=== PATIENT | male | born 1950 | race Caucasian/White ===

== ENCOUNTER 2020-01-16 11:30 | Observation (INO) | payer OTHER, SELFPAY ==
[2020-01-16] VITALS (8 sets, daily range): BP systolic 116–140; BP diastolic 64–91; PULSE 77–120; RESP 16–25; TEMP 36.6–37.2; O2SAT 95–100; BMI 26.1
--- NOTE | ~2020-01-16 | CT_ITS ---
EXAMINATION: CT chest abdomen w con EXAM DATE: 01/18/2020 10:15 INDICATION: Thrombocytopenia, elevated LFTs. TECHNIQUE: Spiral CT of the chest and abdomen was performed following intravenous injection of 100 mL Omnipaque 350. Axial, coronal and sagittal images were reviewed. Coronal maximum intensity pixel i mages of chest reviewed. The dose-length product (DLP) for this examination was 358.21 mGy-cm. The exposure was tailored according to patient size (auto mA exposure control), and iterative reconstruct ion (ASIR) was used as additional dose reduction technique. There is no prior study for comparison. FINDINGS: CHEST: There is 3 mm right upper lobe nodule on image 72. Mild emphysema. There are no pleural or p ericardial effusions. Tracheobronchial tree is patent. There is no mediastinal, hilar or axillary lymphadenopathy. There are small epicardial lymph nodes. There is no pneumothorax. Heart normal in size. No evidence of coronary arterial calcification. ABDOMEN: Spleen measures 10.9 x 6.7 x 15.6 cm. Liver has a vaguely nodular contour, may indicate cir rhosis. No focal liver lesions. There is cholelithiasis, moderately distended gallbladder, with smal l amount of pericholecystic fluid. Possible cholecystitis, clinical correlation. Portal and splenic veins are patent. Kidneys enhance symmetrically. There is no hydronephrosis. There are bilateral re nal cysts, largest on the left measuring 7 cm, and on the right measuring 5 cm. There are mildly enl arged periportal lymph nodes, with a portacaval lymph node measuring 2.4 x 1.2 cm. Gastrohepatic lymp h node or nodes measuring 2.0 x 2.0 cm. There is mild scattered arteriosclerotic disease. The stom ach and small bowel are unremarkable. There is expected amount of colonic stool. No free intraperi toneal gas. There are no osteoblastic or osteolytic lesions identified. IMPRESSION: 1. Possible cholecystitis. 2. Probable cirrhosis. 3. Mild splenomegaly. 4. Periportal lymphadenopathy, small epicardial lymph nodes. Could be reactive but lymphoma or other malignancy not excludable. Reviewed, dictated and finalized at location B.
--- NOTE | ~2020-01-16 | CT_ITS ---
EXAMINATION: CT brain wo con EXAM DATE: 01/16/2020 12:08 INDICATION: This is an fever. Fatigue. TECHNIQUE: Spiral CT of the head was performed without contrast. Axial, coronal and sagittal images were reviewed. The dose-length product (DLP) for this examination was 605.33 mGy-cm. The exposure w as tailored according to patient size, and iterative reconstruction (ASIR) was used as additional dos e reduction technique. There is no prior study for comparison. FINDINGS: There is no acute intraparenchymal hemorrhage. No evidence of intraparenchymal brain mass lesion. No evidence of acute infarction. Please note that initial head CT has limited sensitivity f or small or acute infarctions. There is mild periventricular and subcortical hypodensity, nonspecific but probably related to small vessel ischemic disease. There is mild prominence of the sulci and v entricles related to cerebral atrophy. There is intracranial carotid arteriosclerosis. There are n o extra-axial collections. There is no mass effect or midline shift. The orbits are unremarkable. Soft tissue is unremarkable. The visualized sinuses and mastoid air cells are well aerated. IMPRESSION: 1. No acute intracranial findings. 2. Chronic age related findings. Reviewed, dictated and finalized at location A.
--- NOTE | ~2020-01-16 | US_ITS ---
EXAMINATION: US right upper quadrant EXAM DATE: 01/16/2020 13:38 INDICATION: Transaminitis. TECHNIQUE: Multiple grayscale and Doppler images of the abdomen right upper quadrant were obtained (mik y a technologist who performed the scan) and subsequently reviewed. There is no prior study for donal [place]. FINDINGS: The pancreatic head and body are normal in appearance. The pancreatic tail is not visualized. The l iver has normal echogenicity and contour. There are no focal liver lesions identified. There is no evidence of intrahepatic biliary duct dilation. Portal venous flow was seen in the hepatopedal, nor mal direction and has normal Doppler waveform. No right-sided hydronephrosis. There is right renal 5 cm cyst. Common bile duct measures 4 mm, which is normal. Portions of the gallbladder wall appear thickened, o ther portions appear normal in thickness. There are multiple gallstones. No pericholecystic fluid. T echnologist does state patient has sonographic Hill's sign. IMPRESSION: Cholelithiasis, regions of mild gallbladder wall, sonographic Hill's sign demonstrated. Possible cholecystitis. Reviewed, dictated and finalized at location A. IMPRESSION: Cholelithiasis, regions of mild gallbladder wall, sonographic Consuelo y's sign demonstrated. Possible cholecystitis.
--- NOTE | ~2020-01-16 | NM_ITS ---
HEPATOBILIARY SCAN Procedure: Hepatobiliary scan performed following IV administration 5.1 mCi Tc 99m Choletec. At 60 m inutes 1.6 mcg CCK administered IV for evaluation of gallbladder ejection fraction. Indication:Elevated liver function tests. Abdomen pain. Comparison: CT dated 01/18/2020 Findings: There is normal radiotracer uptake in the liver parenchyma with prompt excretion into the b iliary tract. Gallbladder visualized at 20 minutes. Small bowel visualized at 30 minutes. Normal g allbladder ejection fraction measures 48% (normal 10-90%, but most patients with gallbladder dysfunct ion have GBEF of less than 35%) Impression: 1: Normal hepatobiliary scan. Reviewed, dictated and finalized at location A. Impression: 1: Normal hepatobiliary scan.
--- NOTE | ~2020-01-16 | XR_ITS ---
EXAMINATION: XR chest 2V EXAM DATE: 01/16/2020 12:10 INDICATION: Dizziness, nausea, sweating. TECHNIQUE: Frontal and lateral projections of the chest obtained and reviewed. Comparison is made to prior examination from 04/07/2017. FINDINGS: The lungs are clear. There are no pleural effusions. The cardiomediastinal silhouette is within normal limits. There is no pneumothorax suspected. There is old right distal clavicular fract ure, associated osteoarthritis. Moderate-sized mid and lower thoracic endplate bridging osteophytes. The bones and soft tissues are unremarkable. IMPRESSION: No acute cardiopulmonary findings. Reviewed, dictated and finalized at location A.
--- NOTE | 2020-01-16 11:32 | ECG_ITS ---
Measurements Intervals [place] Rate: 115 P: 36 DC: 135 QRS: -55 QRSD: 82 T: 23 QT: 311 QTc: 430 Interpretive Statements SINUS TACHYCARDIA POSSIBLE LEFT ATRIAL ENLARGEMENT LEFT AXIS DEVIATION LOW QRS VOLTAGE IN PRECORDIAL LEADS BORDERLINE T WAVE ABNORMALITY- INFERIOR LEADS ABNORMAL ECG Electronically Signed On 01-16-2020 17:05:29 CDT by Alan Avila D.O.
--- NOTE | 2020-01-16 11:37 | ED.DIZZY ---
HPI - Dizziness General Chief Complaint: Dizziness Stated Complaint: nausea, fatigue Time Seen by Provider: 01/16/20 11:37 Source: patient Mode of arrival: ambulatory Limitations: no limitations History of Present Illness HPI Narrative: Patient is a 69-year-old male who presents for evaluation of feeling unwell. Patient states that on Friday night he worked into Friday morning, got off work at 7 AM, went home because he is very fatigued and slept for a period of 24 hours. He states when he awakened he was very sweaty. He denies any recurrent fever or chills. He states he just generally does not feel well. He denies myalgias. He denies headache, chest pain, shortness of breath, cough or abdominal pain. No nausea or vomiting. He does report some decreased oral intake states he does not feel quite as hungry as normal. He denies any dysuria, hematuria or frequency. No rash. He states that on Friday he felt dizzy throughout the day like his equilibrium was off but has no dizziness currently. He denies any palpitations, leg edema. No recent sick contacts. Patient lives home alone, aside from work, he mainly has been isolating at home. Related Data Home Medications Medication Instructions Recorded Confirmed xlztxitr-esp-kaqez-vit K-lycop tablet 01/16/20 [One-A-Day Men's 50 Plus] omega 4-tbk-ghc-fish oil [Fish Oil] 1 cap PO DAILY 01/16/20 Allergies Allergy/AdvReac Type Severity Reaction Status Date / Time No Known Allergies Allergy Verified 01/16/20 11:41 Review of Systems Review of Systems: Narrative: CONSTITUTIONAL: Denies current fever, chills, or sweats. EYES: Reports slightly blurry vision, no eye redness or discharge ENT: Denies rhinorrhea, congestion, sore throat, or otalgia. CARDIOVASCULAR: Denies chest pain, palpitations, or edema. RESPIRATORY: Denies cough or dyspnea. GASTROINTESTINAL: Denies abdominal pain, nausea, vomiting, or diarrhea. GENITOURINARY: Denies dysuria or hematuria. SKIN: Denies rash or itching. MUSCULOSKELETAL: Denies back pain, joint pain, or myalgia. NEUROLOGIC: Denies headache, numbness, or weakness. Reports dizziness that is now resolved. [facility] Past Medical History Medical History (Updated 01/16/20 @ 15:43 by Elena Ramachandran MD) No pertinent past medical history Surgical History Surgical History (Updated 01/16/20 @ 11:56 by Elena Ramachandran MD) H/O left wrist surgery Social History Social History (Updated 01/16/20 @ 11:57 by Elena Ramachandran MD) Smoking status: Former smoker Alcohol intake: never Substance use: never Gender identity (if verbalized by the patient): Male Exam Narrative: Exam Narrative: GENERAL: Awake, alert, conversant HEAD: Normocephalic, atraumatic. EYES: PERRLA and EOMI. no nystagmus. ENT: Nares clear, no rhinorrhea or epistaxis. Mucous membranes moist. NECK: Supple. CHEST: No respiratory distress, breathing even and non labored HEART: Regular rate, sinus rhythm ABDOMEN:Non distended, non tender EXTREMITIES: Normal range of motion. No edema. SKIN: Warm, dry, no rash. NEURO:No focal deficits. Alert and oriented x3. Finger to nose intact bilaterally. EOMs intact without nystagmus. No facial droop/asymmetry noted bilaterally. Grimace intact. Intact sensation in face. Hearing intact bilaterally. Shoulder shrug intact. Strength 5/5 bilateral upper extremities. Strength 5/5 bilateral lower extremities. Reflexes 2+ patellar. Heel to adler intact bilaterally. Ambulatory with a narrow base, steady gait. Course Vital Signs Vital signs: Vital Signs Temperature 36.7 C 01/16/20 11:35 Pulse Rate 120 H 01/16/20 11:35 Respiratory Rate 18 01/16/20 11:35 Blood Pressure 116/76 01/16/20 11:35 Pulse Oximetry 98 01/16/20 11:35 Temperature 36.7 C 01/16/20 13:37 Pulse Rate 87 01/16/20 13:37 Respiratory Rate 25 H 01/16/20 13:37 Blood Pressure 131/88 01/16/20 13:37 Pulse Oximetry 97 01/16/20 13:37 MDM
[2020-01-16 11:59] LABS: Hematocrit 48.5 % (42.0-52.0); Hemoglobin 16.9 g/dL (14.0-18.0); Mean Corpuscular HGB Conc 34.8 g/dl (32-36); Mean Corpuscular Hemoglobin 32.5 pg (26-34); Mean Corpuscular Volume 93.3 fl (80-100); Platelet Count Result 34 k/mm3 (150-375); Red Cell Distribution Width 12.4 % (11.5-14.5); White Blood Count 3.5 K/mm3 (4.5-10.0)
[2020-01-16 12:07] LABS: Atypical Lymphocytes Present; Large Platelets Present; Lymphocytes Absolute Manual 1.15 K/mm3 (1.1-4.5); Monocytes Absolute Manual 0.42 K/mm3 (0.1-0.90); Monocytes Percent Manual 12 % (3-9); Neutrophils Percent Manual 55 % (46-73); Platelet Estimate Decreased (Adequate); Total Cells Counted 100
[2020-01-16 12:15] LABS: Add Urine Microscopic? YES; Appearance Urine Clear (Clear); Bacteria Urine Trace /hpf; Bilirubin Urine Negative (Negative); Blood Urine Negative (Negative); Color Urine Amber (Yellow); Glucose Urine UA Negative (Negative); Ketones Urine Negative (Negative); Leukocyte Esterase Ur Negative LEU/UL (Negative); Mucus Urine Heavy /lpf; Nitrate Urine Negative (Negative); Protein Urine 2+ mg/dL (Negative); Squamous Epithelial Cell Urine Occasional /hpf (Few); WBC Urine 16-20 /hpf
[2020-01-16] MEDS: SODIUM CHLORIDE 0.9% IV 1,000 ML 999 ML IV CONT (12:28)
[2020-01-16] MEDS: MECLIZINE HCL 25 MG TABLET PO (12:28)
--- NOTE | 2020-01-16 12:38 | PC.NURSE ---
Visual acuity test was performed as charted. Patient reports that he does have glasses but does not always wear them and that he does not have them with him at this time. He does state that he has been having some increased blurred vision bilaterally which he reports is also present to a smaller extent when wearing his glasses. He is unable to tell me when he was last seen by optometry and is unsure when his last prescription lenses were updates. Patient was educated on the need to wear his glasses for driving and that he should have them with him.
[2020-01-16 12:39] LABS: CRP 2.1 mg/dL (<1.0)
[2020-01-16 12:41] LABS: Alanine Aminotransferase 135 U/L (4-50); Albumin Level 4.1 g/dL (3.5-5.1); Alkaline Phosphatase 168 U/L (38-126); Aspartate Amino Transferase 227 U/L (17-59); Bilirubin,Total 1.8 mg/dL (0.2-1.3); Blood Urea Nitrogen 26 mg/dL (9-20); Calcium 9.1 mg/dL (8.4-10.2); Carbon Dioxide 28 mmol/L (22-30); Chloride 99 mmol/L (98-107); Estimated CRCL calculation 48 ml/min; Estimated Glomerular Filt Rate 55; Glucose 117 mg/dL (75-110); Sodium 134 mmol/L (137-145)
[2020-01-16 13:33] LABS: Hepatitis B Surface Antigen Negative (Negative)
[2020-01-16 13:39] LABS: HAV RESULT Negative (Negative); Hepatitis B Core IgM Result Negative (Negative)
[2020-01-16 13:51] LABS: Hepatitis C Virus Antibody Reactive (Negative)
--- NOTE | 2020-01-16 16:48 | ADMGEN ---
This patient, Job Das, was admitted to Medical Room 256-. Patient/family oriented to hospital policies and general routines including ID bracelet, bed and alarms, visiting hours, pain management, procedures, bathroom and other care routines, personal items, smoking policy, room service/diet, and visiting hours. Valuables list has been completed. Information on how to activate the Rapid Response Team has been discussed. Patient/Family are encouraged to report perceived risks to care and to ask questions if they do not understand what they are told or what they should do.
--- NOTE | 2020-01-16 17:00 | PM.IMHP ---
H&P: HPI History of Present Illness Chief complaint: Multiple complaints. Narrative: Job Das is a relatively healthy 69-year-old male, former smoker, who presented to the emergency department earlier this morning with multiple complaints. 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 Initially he had severe nausea, and he thought perhaps he got food poisoning from a sandwich that he had made with mayonaisse which he then noted to be . He went to bed and reports sleeping upwards of 15 hours before he was wakened from sleep in a drenching sweat and since that time, he has pretty much been sleeping most of the day. Despite continued sweats, he has not been running a fever although he does admit that the temperature strips he has been using are old. His oral intake has been poor, as food just does not smell good or sound good. He continues to have mild nausea but he was able to eat some chicken soup earlier today. He has not had abdominal pain or epigastric pain. Additionally, he reports a decrease in urine, dark colored urine, feelings of being off balance with blurry vision, and epistaxis over the past several days. Pertinent labs done on arrival to the emergency department include a platelet count of 34,000, evidence of dehydration, and elevated LFTs. He was also reactive on the hepatitis-C antibody screen. With further questioning, he has no known history of hepatitis or exposure to such. He did have a blood transfusion in 2004 after losing a significant amount of blood due to epistaxis. He has tattoos that he got years ago at a reputable shop. He has not had any new sexual partners for many years. No history of IV drug use. He denies recent travel and sick contact. No exposure to body fluids. He drank heavily in his 20s but now drinks maybe 1 or 2 times a month, and in moderation, although he mentions sometimes ?I might overdo it.? Review of Systems Review of Systems: Narrative: Twelve systems were reviewed with pertinent positives and negatives as per HPI. He has a slight headache and sinus congestion but moved that may be due to seasonal allergies. He denies sore throat. No cough or shortness of breath. He denies melena and hematochezia. He will frequently get nose bleeds, and has had them many times over the years, and fact he required surgery for that. He previously to the bare aspirin daily but was told not to do that any longer. He denies significant bruising. [facility] Past Medical History Medical History Former smoker Surgical History Surgical History (Updated 01/16/20 @ 22:32 by Heather Marie PA-C) History of nasal surgery Patient reports surgical intervention due to sustained epistaxis, performed at [place]. History of surgery on left wrist With hardware. Family History Family History Father Cancer Patient's father is Sibling Patient's brother is Lung cancer Social History Social History (Updated 01/16/20 @ 22:17 by Heather Marie PA-C) Social History: Surrogate decision maker: Theresa Rodríguez, daughter. Code status: Full code. Smoking packs per day: 1 Smoking cigarettes per day: 20.0 Years smoked: 30 Smoking pack-years: 30.00 Smoking status: Former smoker Tobacco type: cigarettes Alcohol intake: current Alcohol use details: He drinks maybe once every month or 2. Typically in moderation but ?sometimes I over do it.? Substance use: never Additional living arrangements comments: The patient lives in his own home in [place] with his CT. 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 Gender identity (if verbalized by the patient): Male Spiritual care concerns: No Meds Home Medications and Allergies Home Medications Medication Instructions Record
[2020-01-16] MEDS: SODIUM CHLORIDE 0.9% IV 1,000 ML 100 ML IV CONT (22:50)
[2020-01-17 05:25] LABS: Basophils Absolute Auto 0.1 K/mm3 (0.0-0.1); Eosinophils Percent Auto 0.2 % (0-4.4); Hematocrit 39.7 % (42.0-52.0); Hemoglobin 13.9 g/dL (14.0-18.0); Immature Granulocyte Absolute 0.01 K/mm3 (0.00-0.031); Immature Granulocyte Percent A 0.2 % (0-0.5); Immature Platelet Fraction Pct 12.4 % (0.9-11.2); Lymphocytes Absolute Auto 2.74 K/mm3 (0.9-3.2); Lymphocytes Percent Auto 55.7 % (18.3-44.2); Mean Corpuscular Hemoglobin 33.1 pg (26-34); Mean Corpuscular Volume 94.5 fl (80-100); Mean Platelet Volume 13.2 fl (7.4-10.4); Monocytes Absolute Auto 0.4 K/mm3 (0.1-0.6); Monocytes Percent Auto 8.3 % (2.6-8.5); Neutrophils Absolute Auto 1.7 K/mm3 (1.3-6.7); Neutrophils Percent Auto 34.6 % (45.5-73.1); Platelet Count Result 36 k/mm3 (150-375); Red Cell Distribution Width 12.6 % (11.5-14.5); White Blood Count 4.9 K/mm3 (4.5-10.0)
[2020-01-17 05:31] LABS: INR 1.1; Prothrombin Time 13.4 Seconds (11.1-14.7)
[2020-01-17 06:00] VITALS: BP 100/56; PULSE 85; RESP 18; TEMP 37.3; O2SAT 97
[2020-01-17 06:03] LABS: Alanine Aminotransferase 96 U/L (4-50); Albumin Level 3.2 g/dL (3.5-5.1); Alkaline Phosphatase 154 U/L (38-126); Aspartate Amino Transferase 163 U/L (17-59); Bilirubin,Total 1.4 mg/dL (0.2-1.3); Blood Urea Nitrogen 22 mg/dL (9-20); Calcium 8.1 mg/dL (8.4-10.2); Carbon Dioxide 27 mmol/L (22-30); Chloride 101 mmol/L (98-107); Estimated CRCL calculation 68 ml/min; Estimated Glomerular Filt Rate > 60; Glucose 100 mg/dL (75-110); Magnesium 1.8 mg/dL (1.6-2.3); Potassium 4.6 mmol/L (3.4-5.0); Sodium 132 mmol/L (137-145)
[2020-01-17] MEDS: SODIUM CHLORIDE 0.9% IV 1,000 ML 100 ML IV CONT ×2 (07:43→16:51)
[2020-01-17] MEDS: MAGNESIUM OXIDE 200 MG TABLET PO (07:44)
[2020-01-17 07:47] VITALS: PULSE 85; RESP 18; O2SAT 97
--- NOTE | 2020-01-17 10:07 | WPDGICN ---
Assessment and Plan Assessment and plan (1) Elevated LFTs: Code(s): R79.89 - Other specified abnormal findings of blood chemistry Status: Acute Assessment and Plan: Elevated LFTs felt to be secondary to hepatitis C. However other etiology cannot be excluded given the concomitant low platelet count concern for possible underlying portal hypertension a CT scan of the abdomen is advised. We will continue monitor liver function test additional testing for other etiology of hepatitis also will be performed. (2) Hepatitis C: Qualifiers: Hepatic coma status: without hepatic coma Viral hepatitis chronicity: unspecified Qualified Code(s): B19.20 - Unspecified viral hepatitis C without hepatic coma Code(s): B19.20 - Unspecified viral hepatitis C without hepatic coma Status: Acute Assessment and Plan: Hepatitis C antibody positive on screening test usually this is a chronic infection. And therefore uncertain whether this accounts for his acute symptoms of nausea has been persistent for 5 days. Agree with viral load evaluation. Ultimately patient should have treatment. I would encourage outpatient referral to hepatology Service of [facility] for ultimate and definitive treatment. (3) Thrombocytopenia: Code(s): D69.6 - Thrombocytopenia, unspecified Status: Acute Assessment and Plan: low platelet count of uncertain etiology. May be related to occult liver disease. But ultrasound reveals no specific evidence for cirrhosis. I would recommend a CT scan to evaluate the spleen. Also to evaluate elevated LFTs. If this is not fruitful than hematology evaluation should be obtained. (4) Cholelithiasis: Code(s): K80.20 - Calculus of gallbladder without cholecystitis without obstruction Status: Acute Assessment and Plan: Gallstones identified by a ultrasound appear to be asymptomatic. Unlikely to contribute to elevated transaminases. Consider HIDA scan if patient's nausea and abdominal pain persists. GI Consult Note Consult date/time: 01/17/20 10:07 HPI: Job Das is a 69 year old male Seen in evaluation at the request of the hospitalist service. Patient reports multiple vague abdominal complaints that began on Friday. For the last 5 days he has had nausea in general felt poorly. He reports having night sweats. Although he never took his temperature E is concerned about having a fever. Patient presented to the emergency room yesterday was found to have low platelet count elevated LFTs. His hepatitis C antibody screen was elevated. Patient denies any known exposure to hepatitis. He has no contacts that he is aware of that has hepatitis. He denies IV drug abuse. He does report having a blood transfusion after nose bleed several years ago. I think 2004. He also has a history of tattoos many years ago denies any recent travel. Currently drinks only 1 to 2 times a month. He did drink heavily when he was younger. Family history is noncontributory. There is no family history of liver disease. Review of Systems Review of Systems: All systems reviewed & are unremarkable except as noted in HPI and below PMFSH Past Medical History Medical History Former smoker Surgical History Surgical History History of nasal surgery Patient reports surgical intervention due to sustained epistaxis, performed at [place]. History of surgery on left wrist With hardware. Family History Family History Father Cancer Patient's father is Sibling Patient's brother is Lung cancer Social History Social History Social History: Surrogate decision maker: Theresa Rodríguez, daughter. Code status: Full code. Smoking packs per day: 1 Smoking cigarettes per day: 20.0 Years smo
--- NOTE | 2020-01-17 13:00 | PM.IMPN ---
Progress Note: A&P Assessment and Plan (1) Elevated LFTs: Code(s): R79.89 - Other specified abnormal findings of blood chemistry Status: Acute Assessment and Plan: Trended down in comparison to yesterday, however still elevated. It is possible that this may be due to hepatitis-C infection given reactive hepatitis-C screening Hepatitis C viral load is pending Dr. Mishra has been consulted and his recommendations are appreciated. There is no evidence of cirrhosis on imaging, however he does have thrombocytopenia and this could explain his elevated LFTs. CT abdomen/pelvis has been ordered to evaluate for underlying liver disease or portal hypertension. Await results. Continue to monitor LFTs (2) Thrombocytopenia: Code(s): D69.6 - Thrombocytopenia, unspecified Status: Acute Assessment and Plan: Platelet count is 36,000 today. This could be explained by an underlying hepatitis-C infection or liver disease. ITP is less likely in light of elevated LFTs. CT abdomen/pelvis is ordered to evaluate liver and spleen. He may benefit from Hematology consultation dependent on results Dr. Mishra is following his recommendations are appreciated (3) Hepatitis C antibody test positive: Code(s): R76.8 - Other specified abnormal immunological findings in serum Status: Acute Assessment and Plan: He had a reactive hepatitis C screening. He denies IV drug use. He does admit to a blood transfusion many years ago. HCV RNA is pending Dr. Mishra's recommendations are appreciated. (4) Dehydration: Code(s): E86.0 - Dehydration Status: Acute Assessment and Plan: He has had poor oral intake recently and has been outdoors in the heat. He reports his urine is becoming less dark. Has been good today. Continue IV fluid rehydration Continue to monitor I&O (5) Cholelithiasis: Code(s): K80.20 - Calculus of gallbladder without cholecystitis without obstruction Status: Acute Assessment and Plan: Evident on RUQ ultrasound with a positive sonographic Hill's sign, however he has not had abdominal pain and his abdominal exam is benign. May consider HIDA scan, however will not pursue this at this time as the patient is asymptomatic Subjective Date/time seen: 01/17/20 13:00 Interval history: Date of service: 01/17/2020 Mr. Das reports he is doing okay today. He complains of fatigue and still complains of occasional sweats. He denies abdominal pain, bloating, cramping or additional discomfort. He denies nausea, vomiting, fever, chills, dizziness, lightheadedness, or weakness. He has been eating well. He states he is urinating regularly and his urine is becoming less dark. He denies diarrhea or constipation. He didn't get much sleep last night. He also said he had a bit of a sore throat last night that is resolved. Review of Systems Review of Systems: Narrative: A 12 point review of systems was reviewed with pertinent positives and negatives as per HPI. Exam Narrative: Exam Narrative: Mr. Das is examined alone today. He is a well-nourished 69-year-old male who is lying comfortably in bed and is in no acute respiratory distress. HR 85, BP 100/56, R 18 him a T 99.2?, 97% on room Neuro: awake, alert and oriented x4, speech clear, no focal neuro deficits noted HEENMT: normocephalic, atraumatic, EOMI, sclerae anicteric, moist oral mucosa, normal oropharynx Neck: supple, no lymphadenopathy Respiratory: clear to auscultation bilaterally, normal respiratory effort without accessory muscle use Cardio: regular rate, regular rhythm, normal S1 and S2 Abdomen: normal to inspection, nondistended, normoactive bowel sounds, soft, nontender to palpation Extremities: BLE without edema, erythema, or pain to palpation, dorsal pedis pulses palpable bilaterally Skin: no rashes or lesions, warm and dry Psych: Pleasant and cooperative, normal
[2020-01-17 13:54] VITALS: BP 126/61; PULSE 80; RESP 20; TEMP 37.1; O2SAT 98
[2020-01-17 15:40] LABS: Ferritin > 2000.00 ng/mL (11.1-264)
[2020-01-17 21:54] VITALS: BP 130/63; PULSE 80; RESP 16; TEMP 37.2; O2SAT 97
[2020-01-18] MEDS: SODIUM CHLORIDE 0.9% IV 1,000 ML 100 ML IV CONT ×2 (02:58→13:04)
[2020-01-18 05:44] LABS: Hematocrit 38.7 % (42.0-52.0); Hemoglobin 13.3 g/dL (14.0-18.0); Immature Platelet Fraction Pct 11.1 % (0.9-11.2); Mean Corpuscular HGB Conc 34.4 g/dl (32-36); Mean Corpuscular Hemoglobin 32.4 pg (26-34); Mean Corpuscular Volume 94.4 fl (80-100); Mean Platelet Volume 12.8 fl (7.4-10.4); Platelet Count Result 49 k/mm3 (150-375); Red Cell Distribution Width 12.5 % (11.5-14.5)
[2020-01-18 06:00] VITALS: BP 126/66; PULSE 81; RESP 18; TEMP 36.9; O2SAT 96
[2020-01-18 06:17] LABS: Alanine Aminotransferase 86 U/L (4-50); Albumin Level 2.9 g/dL (3.5-5.1); Alkaline Phosphatase 140 U/L (38-126); Aspartate Amino Transferase 120 U/L (17-59); Bilirubin,Total 1.1 mg/dL (0.2-1.3); Blood Urea Nitrogen 13 mg/dL (9-20); Carbon Dioxide 26 mmol/L (22-30); Chloride 106 mmol/L (98-107); Estimated CRCL calculation 75 ml/min; Estimated Glomerular Filt Rate > 60; Glucose 102 mg/dL (75-110); Potassium 4.1 mmol/L (3.4-5.0); Sodium 133 mmol/L (137-145)
[2020-01-18 08:00] VITALS: PULSE 81; RESP 18; O2SAT 96
[2020-01-18] MEDS: SIMETHICONE 125 MG CHEW TAB PO (08:09)
[2020-01-18] MEDS: MAGNESIUM OXIDE 200 MG TABLET PO (08:09)
--- NOTE | 2020-01-18 08:19 | WPDGIPROGNO ---
Progress Note: A&P Additional Plan Patient feels much improved today. No longer has is vague abdominal discomfort. Physical exam reveals patient to be alert. Afebrile he is anicteric. Lungs are clear to auscultation and percussion. Heart is without murmur. Abdomen bowel sounds are present soft nontender with no organomegaly. Labs reveal platelets 49 K. hemoglobin 13, hematocrit 38. LFTs with AST 120, ALT 86, alk-phos 140. Total bilirubin 1.1. Impression 1. Elevated LFTs. In the setting of positive hepatitis C antibody. This suggests that hepatitis C is etiology for his hepatitis. This is usually chronic. I am somewhat concerned about underlying cirrhosis given the low platelet count. Plan is for a CT scan of the abdomen to assess the liver and spleen further. 2. Hepatitis-C. 3. Thrombocytopenia. Likely related to portal hypertension. Await findings of CT scan. If this is not fruitful than hematology evaluation. 4. General malaise has resolved. Uncertain how this relates to his hepatitis C at this point. 5. Gallstones. Identified on ultrasound. Appear to be asymptomatic. Subjective Date/time seen: 01/18/20 08:19 Objective Data Vital Signs Vital Signs: Vital Signs - 24 hr 01/17/20 13:54 01/17/20 21:54 01/18/20 06:00 Temperature 37.1 C 37.2 C 36.9 C Pulse Rate 80 80 81 Respiratory Rate 20 16 18 Blood Pressure 126/61 130/63 126/66 Pulse Oximetry 98 97 96 01/18/20 08:00 Temperature Pulse Rate 81 Respiratory Rate 18 Blood Pressure Pulse Oximetry 96 Intake/Output Intake/Output: Intake & Output 01/15/20 01/16/20 01/17/20 01/18/20 23:59 23:59 23:59 23:59 Intake Total 1240 3220 1300 Output Total 0 1400 1600 Balance 1240 1820 -300 Meds/Results Medications: Active Medications Generic Name Dose Route Start Last Admin Trade Name Freq PRN Reason Stop Dose Admin Sodium Chloride 1,000 mls @ 100 mls/hr 01/16/20 22:35 01/18/20 02:58 Normal Saline Iv IV CONT 100 mls/hr .Q10H SCOTT Administration Magnesium Oxide 200 mg 01/17/20 09:00 01/18/20 08:09 Mag-Ox PO 200 mg DAILY SCOTT Administration Simethicone 125 mg 01/17/20 18:19 01/18/20 08:09 Phazyme PO 125 mg QID PRN Administration gas Radiology Results: ITS Impressions Head CT 01/16/20 12:16 IMPRESSION: 1. No acute intracranial findings. 2. Chronic age related findings. Chest X-Ray 01/16/20 12:18 IMPRESSION: No acute cardiopulmonary findings. Upper Quadrant Ultrasound 01/16/20 13:38 IMPRESSION: Cholelithiasis, regions of mild gallbladder wall, sonographic Hill's sign demonstrated. Possible cholecystitis. Labs Labs: Laboratory Results - last 24 hr 01/17/20 01/18/20 01/18/20 12:59 05:10 05:10 WBC 7.0 RBC 4.10 L Hgb 13.3 L Hct 38.7 L MCV 94.4 MCH 32.4 MCHC 34.4 RDW 12.5 Plt Count 49 L MPV 12.8 H % Immature Plt Fraction 11.1 Sodium 133 L Potassium 4.1 Chloride 106 Carbon Dioxide 26 BUN 13 D Creatinine 0.80 Estim Creat Clear Calc 75 Estimated GFR > 60 Glucose 102 Calcium 8.0 L Ferritin > 2000.00 H Total Bilirubin 1.1 AST 120 H ALT 86 H Alkaline Phosphatase 140 H Total Protein 6.0 L Albumin 2.9 L
--- NOTE | 2020-01-18 13:29 | PM.IMPN ---
Progress Note: A&P Assessment and Plan (1) Elevated LFTs: Code(s): R79.89 - Other specified abnormal findings of blood chemistry Status: Acute Assessment and Plan: Trended down in comparison to yesterday, however still elevated. It is possible that this may be due to hepatitis-C infection given reactive hepatitis-C screening. CT a/p shows findings suggestive of cirrhosis, possible cholecystitis and mild splenomegaly with periportal lymphadenopathy Hepatitis C viral load is pending Dr. Mishra has been consulted and his recommendations are appreciated. Possible cirrhosis on CT imaging, as well as, mild splenomegaly; likely related to thrombocytopenia as well HIDA scan to be performed tomorrow per Dr. Mishra rec Continue to monitor LFTs Await further rec from Dr. Mishra (2) Thrombocytopenia: Code(s): D69.6 - Thrombocytopenia, unspecified Status: Acute Assessment and Plan: Platelet count is 49,000 today. This could be explained by an underlying hepatitis-C infection or liver disease. ITP is less likely in light of elevated LFTs. CT a/p shows findings suggestive of cirrhosis, possible cholecystitis and mild splenomegaly with periportal lymphadenopathy Dr. Mishra is following his recommendations are appreciated Patient to have HIDA scan tomorrow Monitor Await further rec from Dr. Mishra (3) Hepatitis C antibody test positive: Code(s): R76.8 - Other specified abnormal immunological findings in serum Status: Acute Assessment and Plan: He had a reactive hepatitis C screening. He denies IV drug use. He does admit to a blood transfusion many years ago. CT results are as stated above HCV RNA is pending Dr. Mishra's recommendations are appreciated. (4) Dehydration: Code(s): E86.0 - Dehydration Status: Acute Assessment and Plan: He has had poor oral intake recently and has been outdoors in the heat. He notes improved urine output and tolerating PO. Will d/c IV fluid rehydration today Continue to monitor I&O (5) Cholelithiasis: Code(s): K80.20 - Calculus of gallbladder without cholecystitis without obstruction Status: Acute Assessment and Plan: Evident on RUQ ultrasound with a positive sonographic Hill's sign, however he has not had abdominal pain and his abdominal exam is benign. CT shows possible cholecycstitis HIDA scan to be performed tomorrow per Dr. Danica cuadra Await resutls Monitor Subjective Date/time seen: 01/18/20 13:29 Interval history: Patient is a 69 yo M, former smoker, who is here for thrombocytopenia and suspected hepatitis C infection with positive hepatitis C antibody and evaluation of elevated LFTs. Patient has no complaints for me this afternoon. He states he is eating and drinking okay. Denies f/c/s, headaches, dizziness, lightheadedness, cp/palpitations, sob/cough, n/v/d/c, abd pain, changes in BMs, dysuria, hematuria, cloudy urine, calf pain/swelling. Review of Systems Review of Systems: All systems reviewed & are unremarkable except as noted in HPI and below Exam Narrative: Exam Narrative: Patient lying supine in bed at time of visit; head slightly elevated Const: General: cooperative, healthy appearing, comfortable, no acute distress, well developed and alert Nutritional Appearance: well nourished Orientation/consciousness: patient oriented x3 HENMT: Head: normocephalic and atraumatic General nose exam: Normal nares present Face and sinus: face symmetric Mouth: Yes moist mucous membranes Throat: uvula midline Eyes: General: appearance normal, both eyes and all related structures EOM: EOMs intact bilaterally Neck: Neck: trachea midline and supple Resp: Effort & Inspection: normal respiratory ef
[2020-01-18 14:00] VITALS: BP 129/60; PULSE 74; RESP 18; TEMP 37.2; O2SAT 98
--- NOTE | 2020-01-18 14:53 | PCCCNOTE ---
On 01/18/20, the student, Pam Calixto, provided care and completed [facility] documentation on this patient. I have reviewed the student's documentation and agree with the findings.
[2020-01-18 22:00] VITALS: BP 155/68; PULSE 78; RESP 18; TEMP 37; O2SAT 99
[2020-01-19 05:35] LABS: Hematocrit 40.2 % (42.0-52.0); Hemoglobin 13.9 g/dL (14.0-18.0); Immature Platelet Fraction Pct 8.8 % (0.9-11.2); Mean Corpuscular HGB Conc 34.6 g/dl (32-36); Mean Corpuscular Hemoglobin 32.7 pg (26-34); Mean Corpuscular Volume 94.6 fl (80-100); Mean Platelet Volume 11.5 fl (7.4-10.4); Platelet Count Result 77 k/mm3 (150-375); Red Blood Count 4.25 M/mm3 (4.6-6.20); Red Cell Distribution Width 12.6 % (11.5-14.5)
[2020-01-19 05:48] LABS: Alanine Aminotransferase 82 U/L (4-50); Albumin Level 3.2 g/dL (3.5-5.1); Alkaline Phosphatase 144 U/L (38-126); Aspartate Amino Transferase 105 U/L (17-59); Bilirubin,Total 1.1 mg/dL (0.2-1.3); Blood Urea Nitrogen 13 mg/dL (9-20); Calcium 8.3 mg/dL (8.4-10.2); Carbon Dioxide 26 mmol/L (22-30); Chloride 103 mmol/L (98-107); Estimated CRCL calculation 75 ml/min; Estimated Glomerular Filt Rate > 60; Glucose 98 mg/dL (75-110); Magnesium 1.8 mg/dL (1.6-2.3); Potassium 4.3 mmol/L (3.4-5.0); Sodium 136 mmol/L (137-145)
[2020-01-19 06:00] VITALS: BP 123/63; PULSE 76; RESP 20; TEMP 36.8; O2SAT 97
--- NOTE | 2020-01-19 07:50 | PC.NURSE ---
To Nuc Med per wheelchair, IV intact
--- NOTE | 2020-01-19 09:02 | WPDGIPROGNO ---
Progress Note: A&P Additional Plan Patient alert and comfortable this morning. He denies any ongoing abdominal pain states his appetite bowel movements are normal. Physical exam reveals him to be alert, afebrile, vital signs stable. HEENT exam unremarkable. Lungs are clear to auscultation and percussion. Heart is without murmur or extra sounds. Abdominal exam bowel sounds are present soft nontender with no organomegaly. Labs reveal hemoglobin 13.9, hematocrit 40.2, MCV 94. Platelets 77 K. protime 13.4, INR 1.1. Total bilirubin 1.1, AST 105, ALT 82, alk-phos 144. CT scan of the abdomen suggest cirrhosis of liver. Splenomegaly evident. Possible cholecystitis with gallstones. 1. Abdominal pain. This is now resolved. May be related to gallstones. HIDA scan pending to exclude cholecystitis. Patient currently asymptomatic. Surgery consult pending results of HIDA scan. 2. Cirrhosis of liver evident by CT scan. This likely accounts for thrombocytopenia. Hepatitis C appears to be etiology. Plan is for elective outpatient referral to [facility] for treatment of hepatitis-C. This is unlikely to account for his pain at the time admission. Subjective Date/time seen: 01/19/20 09:02 Objective Data Vital Signs Vital Signs: Vital Signs - 24 hr 01/18/20 14:00 01/18/20 22:00 01/19/20 06:00 Temperature 37.2 C 37.0 C 36.8 C Pulse Rate 74 78 76 Respiratory Rate 18 18 20 Blood Pressure 129/60 155/68 H 123/63 Pulse Oximetry 98 99 97 Intake/Output Intake/Output: Intake & Output 01/16/20 01/17/20 01/18/20 01/19/20 23:59 23:59 23:59 23:59 Intake Total 1240 3220 3780 100 Output Total 0 1400 2200 1250 Balance 1240 1820 1580 -1150 Meds/Results Medications: Active Medications Generic Name Dose Route Start Last Admin Trade Name Freq PRN Reason Stop Dose Admin Magnesium Oxide 200 mg 01/17/20 09:00 01/18/20 08:09 Mag-Ox PO 200 mg DAILY SCOTT Administration Simethicone 125 mg 01/17/20 18:19 01/18/20 08:09 Phazyme PO 125 mg QID PRN Administration gas Radiology Results: ITS Impressions Head CT 01/16/20 12:16 IMPRESSION: 1. No acute intracranial findings. 2. Chronic age related findings. Chest X-Ray 01/16/20 12:18 IMPRESSION: No acute cardiopulmonary findings. Upper Quadrant Ultrasound 01/16/20 13:38 IMPRESSION: Cholelithiasis, regions of mild gallbladder wall, sonographic Hill's sign demonstrated. Possible cholecystitis. Chest/Abdomen CT 01/18/20 10:25 IMPRESSION: 1. Possible cholecystitis. 2. Probable cirrhosis. 3. Mild splenomegaly. 4. Periportal lymphadenopathy, small epicardial lymph nodes. Could be reactive but lymphoma or other malignancy not excludable. Labs Labs: Laboratory Results - last 24 hr 01/19/20 01/19/20 05:19 05:19 WBC 7.0 RBC 4.25 L Hgb 13.9 L Hct 40.2 L MCV 94.6 MCH 32.7 MCHC 34.6 RDW 12.6 Plt Count 77 L D MPV 11.5 H % Immature Plt Fraction 8.8 Sodium 136 L Potassium 4.3 Chloride 103 Carbon Dioxide 26 BUN 13 Creatinine 0.80 Estim Creat Clear Calc 75 Estimated GFR > 60 Glucose 98 Calcium 8.3 L Magnesium 1.8 Total Bilirubin 1.1 AST 105 H ALT 82 H Alkaline Phosphatase 144 H Total Protein 6.0 L Albumin 3.2 L
--- NOTE | 2020-01-19 09:35 | PC.NURSE ---
Returned to room. IV intact
[2020-01-19] MEDS: MAGNESIUM OXIDE 200 MG TABLET PO (09:42)
[2020-01-19 11:58] LABS: Ceruloplasmin 32 mg/dL (18-36)
--- NOTE | 2020-01-19 13:23 | PM.DS ---
DS: Admitting Diagnosis Admitting Diagnosis Admitting Diagnosis: Other specified abnormal findings of blood chemistry DS: Discharge Diagnosis Discharge Diagnosis (1) Elevated LFTs: Code(s): R79.89 - Other specified abnormal findings of blood chemistry Status: Acute Assessment and Plan: Trended down in comparison to yesterday, however still elevated. It is possible that this may be due to hepatitis-C infection given reactive hepatitis-C screening. CT a/p shows findings suggestive of cirrhosis, possible cholecystitis and mild splenomegaly with periportal lymphadenopathy. HIDA scan today showed normal HIDA scan Hepatitis C viral load is pending Dr. Mishra has been consulted and his recommendations are appreciated. Possible cirrhosis on CT imaging, as well as, mild splenomegaly; likely related to thrombocytopenia as well Hepatic panel in 2 weeks Follow up with Dr. Mishra in 1 month (2) Thrombocytopenia: Code(s): D69.6 - Thrombocytopenia, unspecified Status: Acute Assessment and Plan: Platelet count is 77,000 today. This could be explained by an underlying hepatitis-C infection or liver disease. ITP is less likely in light of elevated LFTs. CT a/p shows findings suggestive of cirrhosis, possible cholecystitis and mild splenomegaly with periportal lymphadenopathy. Normal HIDA scan today. Dr. Mishra is following his recommendations are appreciated (3) Hepatitis C antibody test positive: Code(s): R76.8 - Other specified abnormal immunological findings in serum Status: Acute Assessment and Plan: He had a reactive hepatitis C screening. He denies IV drug use. He does admit to a blood transfusion many years ago. CT results are as stated above HCV RNA is pending Will likely need referral to secondary set up man Dr. Mishra's recommendations are appreciated. (4) Dehydration: Code(s): E86.0 - Dehydration Status: Acute Assessment and Plan: He has had poor oral intake recently and has been outdoors in the heat. He notes improved urine output and tolerating PO. Continue to monitor I&O (5) Cholelithiasis: Code(s): K80.20 - Calculus of gallbladder without cholecystitis without obstruction Status: Acute Assessment and Plan: Evident on RUQ ultrasound with a positive sonographic Hill's sign, however he has not had abdominal pain and his abdominal exam is benign. CT shows possible cholecycstitis. Normal HIDA scan today Monitor DS: Summary Hospital Course Reason for hospitalization: Nausea, Hepatitis C antibody test positive, elevated LFTs, thrombocytopenia Hospital Course: Patient is a 70 yo M with history of former tobacco use who presented to the emergency department on 01/15 with complaints of feeling poorly and nausea. While in the ED, he was found to be thrombocytopenis, evidence of dehydration, and elevated LFTs, as well as, reactive hepatitis C antibody screen. Patient admitted under this setting. Please see H&P for further details. Presenting VS: Temp Pulse Resp BP Pulse Ox 98.1 F 120 H 18 116/76 98 01/16/20 11:35 01/16/20 11:35 01/16/20 11:35 01/16/20 11:35 01/16/20 11:35 Presenting Pertinent labs: WBC 3.5k, Plt 34k, Na 134, BUN 26, Cr 1.30, tot bili 1.8, AST 227, ALT 135, alk phos 168, CRP 2.1. Hepatitis C ab reactive, HCV RNA PCR 1620. CBC, coag, chemistry, UA, immunology, serology otherwise grossly unremarkable Micro: UCx negative Imaging: Head CT 01/16/20 12:16 IMPRESSION: 1. No acute intracranial findings. 2. Chronic age related findings. Chest X-Ray 01/16/20 12:18 IMPRESSION: No acute cardiopulmonary findings. Upper Quadrant Ultrasound 01/16/20 13:38 IMPRESSION: Cholelithiasis, regions of mild gallbladder wall, sonographic
[2020-01-19 13:39] VITALS: BP 125/79; PULSE 92; RESP 18; TEMP 36.7; O2SAT 100
[2020-01-19 21:49] LABS: Mitochondrial (M2) Ab (IgG) <=20.0 U (<=20.0)
[2020-01-21 20:36] LABS: Hepatitis C RNA, Quant PCR 1620 IU/mL
== END 2020-01-19 14:51 | disposition home or self-care (01) ==
LOC: ANHED 15:49 → ANH2MED 16:08
PROVIDERS: Internal Medicine Gastroenterology; Physician Assistant; Admitting Provider Internal Medicine; Emergency Provider Emergency Medicine; Visit Provider Physician Assistant
DX: R79.89 Other specified abnormal findings of blood chemistry (principal); B19.20 Unspecified viral hepatitis C without hepatic coma; K74.69 Other cirrhosis of liver; D69.6 Thrombocytopenia, unspecified; K80.20 Calculus of gallbladder without cholecystitis without obstruction; E80.6 Other disorders of bilirubin metabolism; E86.0 Dehydration; Z87.891 Personal history of nicotine dependence; Z79.899 Other long term (current) drug therapy
CPT/HCPCS: 36415; 70450; 71046; 71260; 74160; 76705; 78227; 80053; 80074; 81001; 82104; 82390; 82728; 83520; 83735; 85025; 85027; 85055; 85610; 85730; 86038; 86140; 87086; 87522; 93005; 96360; 96361; 99285; A9270; A9537; G0378; J2805; J7030; Q9967

== ENCOUNTER 2020-02-02 07:52 | Outpatient (CLI) | payer OTHER, SELFPAY ==
[2020-02-02 08:29] LABS: Alanine Aminotransferase 89 U/L (4-50); Albumin Level 3.2 g/dL (3.5-5.1); Alkaline Phosphatase 206 U/L (38-126); Aspartate Amino Transferase 128 U/L (17-59); Bilirubin,Total 0.7 mg/dL (0.2-1.3)
== END 2020-02-02 07:53 | disposition home or self-care (01) ==
LOC: ANHLAB 07:54
PROVIDERS: Visit Provider Physician Assistant
DX: R79.89 Other specified abnormal findings of blood chemistry (principal); R76.8 Other specified abnormal immunological findings in serum
CPT/HCPCS: 36415; 80076

== ENCOUNTER 2020-02-29 10:26 | Emergency (ER) | payer OTHER, SELFPAY ==
[2020-02-29] VITALS (7 sets, daily range): BP systolic 137–168; BP diastolic 70–83; PULSE 56–83; RESP 18–21; TEMP 37.1; O2SAT 98–100
--- NOTE | ~2020-02-29 | US_ITS ---
EXAMINATION: US carotid duplex BI DATE: 02/29/2020 14:56 INDICATION: Subjective visual disturbance. Dizziness. TECHNIQUE: Grayscale, color Doppler, and pulsed Doppler images of the cervical carotid arteries were obtained. The degree of vessel stenosis is placed in one of the following categories: normal, <50%, 5 0-69%, >=70% but less than near-occlusion, near-occlusion, or total occlusion. Note that percent sten osis relative to normal distal artery lumen diameter is indirectly measured from velocity measurement s as described by Christian, et al. Radiology 2003; 229:[id number]. COMPARISON: None. FINDINGS: RIGHT: The right common carotid artery (CCA) peak systolic velocity (PSV) is 59 cm/s. The right internal car otid artery (ICA) PSV is 47 cm/s. The right ICA end-diastolic velocity (EDV) is 10 cm/s. The right IC A/CCA PSV ratio is 0.8. Grayscale and color Doppler images yield an estimate of <50% diameter reducti on from intimal thickening and negligible plaque in the ICA. The external carotid artery (ECA) PSV is 79 cm/s. There is antegrade flow in the right vertebral artery. LEFT: The left CCA PSV is 59 cm/s. The left ICA PSV is 53 cm/s. The left ICA EDV is 15 cm/s. The left ICA/C CA PSV ratio is 0.9. Grayscale and color Doppler images yield an estimate of <50% diameter reduction from intimal thickening and negligible plaque in the ICA. The ECA PSV is 58 cm/s. There is antegrade flow in the left vertebral artery. IMPRESSION: 1. <50% stenosis in the right internal carotid artery. 2. <50% stenosis in the left internal carotid artery. Reviewed, dictated and finalized at location A.
--- NOTE | ~2020-02-29 | XR_ITS ---
XR chest 2V DATE: 02/29/2020 11:47 INDICATION: Productive cough. Dizziness. TECHNIQUE: PA and lateral views COMPARISON: 01/15/2022 view chest FINDINGS: There is diffuse idiopathic skeletal hyperostosis. Dextroscoliosis of the thoracic spine. Normal heart size. No hilar or mediastinal enlargement. No pulmonary infiltrate or consolidation, pleural effusion or pulmonary vascular congestion or pneumo thorax. IMPRESSION: No active cardiopulmonary disease Reviewed, dictated and finalized at location A.
--- NOTE | ~2020-02-29 | CT_ITS ---
EXAMINATION: CT brain wo con DATE: 02/29/2020 12:42 INDICATION: Dizziness and blurred vision since yesterday. TECHNIQUE: Computed tomography (CT) of the head was performed without intravenous contrast. The mA wa s adjusted according to patient size. Iterative reconstruction technique was employed. Exam dose: 60 5.33 mGy-cm total exam DLP. COMPARISON: 01/16/2020 CT brain FINDINGS: No intracranial mass lesion or hemorrhage or cerebrovascular accident. No midline shift or mass effect. No subdural or epidural hematoma. Cerebral atherosclerotic calcifications are noted. There is nonspecific mild diminished attenuation o f the cerebral white matter, likely due to chronic small vessel ischemic changes. No fracture or bone destruction of the cranial vault. Included paranasal sinuses and mastoid air cells are unremarkable. IMPRESSION: Cerebral atherosclerosis and chronic small vessel ischemic changes of the cerebral white matter No acute intracranial finding Reviewed, dictated and finalized at [facility]. Reviewed, dictated and finalized at [facility].
--- NOTE | 2020-02-29 10:28 | ECG_ITS ---
Measurements Intervals [place] Rate: 60 P: 46 DE: 134 QRS: -48 QRSD: 91 T: -1 QT: 386 QTc: 387 Interpretive Statements SINUS RHYTHM LEFT AXIS DEVIATION BORDERLINE T WAVE ABNORMALITY- INFERIOR LEADS BASELINE ARTIFACT- I, II, AVR, V4 BORDERLINE ECG Electronically Signed On 02-29-2020 10:55:15 CDT by Alan Avila D.O.
--- NOTE | 2020-02-29 11:16 | ED.DIZZY ---
HPI - Dizziness General Chief Complaint: Dizziness <Sarah Varner PA-C - Last Filed: 02/29/20 15:41> Stated Complaint: DIZZINESS <SIOMARA Interiano Last Filed: 02/29/20 15:41> Time Seen by Provider: 02/29/20 10:34 <SIOMARA Interiano Last Filed: 02/29/20 15:41> Source: patient <SIOMARA Interiano Last Filed: 02/29/20 15:41> Mode of arrival: wheelchair <SIOMARA Interiano Last Filed: 02/29/20 15:41> Limitations: no limitations <SIOMARA Interiano Last Filed: 02/29/20 15:41> History of Present Illness HPI Narrative: This is a 70-year-old male that presents the emergency department for dizziness x2 days. Reports on Friday he shook his head and had sudden onset dizziness. Reports vomiting. Reports he was seen at [place] after this and given some medications with some relief. Reports since he has continued to have dizziness intermittently. Worse with certain head movements and with standing. Reports this morning he started to have some blurry vision. He took his meclizine this morning with little relief. Reports unsteady gait. He was supposed to have an appointment with his primary today, but did not think he could drive there. Denies fever, headache, chest pain, shortness of breath, palpitations, numbness, or weakness. <SIOMARA Interiano Last Filed: 02/29/20 15:41> Related Data Home Medications: Home Medications Medication Instructions Recorded Confirmed meclizine 12.5 mg PO BID PRN 02/29/20 <SIOMARA Interiano Last Filed: 02/29/20 15:41> Allergies/Adverse Reactions: Allergies Allergy/AdvReac Type Severity Reaction Status Date / Time No Known Allergies Allergy Verified 02/29/20 10:28 <SIOMARA Interiano Last Filed: 02/29/20 15:41> Review of Systems Review of Systems: Narrative: CONSTITUTIONAL: Denies fever EYES: Reports visual changes CARDIOVASCULAR: Denies chest pain, palpitations RESPIRATORY: Denies dyspnea. GASTROINTESTINAL: Reports vomiting NEUROLOGIC: Denies headache, numbness, or weakness. <Sarah Varner PA-C - Last Filed: 02/29/20 15:41> All systems reviewed & are unremarkable except as noted in HPI and below <Sarah Varner PA-C - Last Filed: 02/29/20 15:41> PMFSH Past Medical History Medical History: Medical History (Updated 02/29/20 @ 15:40 by Sarah Varner PA-C) Cirrhosis Colon cancer screening Former smoker Hepatitis C <Sarah Varner PA-C - Last Filed: 02/29/20 15:41> Surgical History Surgical History: Surgical History History of nasal surgery Patient reports surgical intervention due to sustained epistaxis, performed at [place]. History of surgery on left wrist With hardware. <Sarah Varner PA-C - Last Filed: 02/29/20 15:41> Social History Social History: Social History Social History: Surrogate decision maker: Theresa Rodríguez, daughter. Code status: Full code. Smoking packs per day: 1 Smoking cigarettes per day: 20.0 Years smoked: 30 Smoking pack-years: 30.00 Smoking status: Former smoker Tobacco type: cigarettes Alcohol intake: current Substance use: never Additional living arrangements comments: The patient lives in his own home in [place] with his CT. 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 Gender identity (if verbalized by the patient): Male Spiritual care concerns: No <Sarah Varner PA-C - Last Filed: 02/29/20 15:41> Exam Narrative: Exam Narrative: GENERAL: Well-appearing, well-nourished, and in no acute distress. HEAD: Normocephalic, atraumatic. EYES: PERRLA and EOMI. Horizontal nystagmus noted with gaze to the right ENT: Nares clear, no rhinorrhea or epistaxis. Mucous membranes moist. Oropharynx without tonsillar hypertrophy exudate or other
[2020-02-29] MEDS: ONDANSETRON INJ 4 MG/2 ML VIAL IV PUSH (11:18)
[2020-02-29] MEDS: SODIUM CHLORIDE 0.9% IV 1,000 ML 999 ML IV CONT (11:18)
[2020-02-29 11:28] LABS: Basophils Percent Auto 0.2 % (0.2-1.2); Eosinophils Percent Auto 0.5 % (0-4.4); Hemoglobin 14.2 g/dL (14.0-18.0); Immature Granulocyte Absolute 0.02 K/mm3 (0.00-0.031); Immature Granulocyte Percent A 0.4 % (0-0.5); Immature Platelet Fraction Pct 4.3 % (0.9-11.2); Lymphocytes Percent Auto 18.2 % (18.3-44.2); Mean Corpuscular HGB Conc 33.8 g/dl (32-36); Mean Corpuscular Hemoglobin 31.9 pg (26-34); Mean Corpuscular Volume 94.4 fl (80-100); Mean Platelet Volume 11.2 fl (7.4-10.4); Monocytes Absolute Auto 0.5 K/mm3 (0.1-0.6); Monocytes Percent Auto 9.8 % (2.6-8.5); Neutrophils Absolute Auto 3.9 K/mm3 (1.3-6.7); Neutrophils Percent Auto 70.9 % (45.5-73.1); Platelet Count Result 133 k/mm3 (150-375); Red Blood Count 4.45 M/mm3 (4.6-6.20); Red Cell Distribution Width 12.8 % (11.5-14.5); White Blood Count 5.5 K/mm3 (4.5-10.0)
[2020-02-29 11:35] LABS: INR 1.1; Prothrombin Time 13.8 Seconds (11.1-14.7)
[2020-02-29 11:36] LABS: Partial Thromboplastin Time 32.5 SECONDS (22.3-36.8)
[2020-02-29 11:40] LABS: Anion Gap 7 mmol/L (8-16); Blood Urea Nitrogen 13 mg/dL (9-20); Calcium 9.4 mg/dL (8.4-10.2); Carbon Dioxide 28 mmol/L (22-30); Chloride 102 mmol/L (98-107); Estimated CRCL calculation 67 ml/min; Estimated Glomerular Filt Rate > 60; Glucose 110 mg/dL (75-110); Potassium 4.1 mmol/L (3.4-5.0); Sodium 137 mmol/L (137-145)
--- NOTE | 2020-02-29 13:34 | PC.NURSE ---
pt. walked without any assitance.
== END 2020-02-29 15:55 | disposition home or self-care (01) ==
PROVIDERS: Physician Assistant; Emergency Provider Emergency Medicine; PCP Family Medicine
DX: R42 Dizziness and giddiness (principal); K74.60 Unspecified cirrhosis of liver; Z87.891 Personal history of nicotine dependence; Z86.19 Personal history of other infectious and parasitic diseases; R94.31 Abnormal electrocardiogram [ECG] [EKG]; I67.2 Cerebral atherosclerosis
CPT/HCPCS: 36415; 70450; 71046; 80048; 85025; 85055; 85610; 85730; 93005; 93880; 96361; 96374; 96375; 99284; J2405; J3360; J7030

== ENCOUNTER 2020-03-24 10:33 | Outpatient (CLI) | payer OTHER, SELFPAY ==
[2020-03-24 11:20] LABS: Basophils Percent Auto 0.2 % (0.2-1.2); Eosinophils Absolute Auto 0.1 K/mm3 (0-0.3); Eosinophils Percent Auto 1.8 % (0-4.4); Hematocrit 43.2 % (42.0-52.0); Hemoglobin 14.4 g/dL (14.0-18.0); Immature Granulocyte Absolute 0.01 K/mm3 (0.00-0.031); Immature Granulocyte Percent A 0.2 % (0-0.5); Lymphocytes Absolute Auto 1.95 K/mm3 (0.9-3.2); Lymphocytes Percent Auto 38.1 % (18.3-44.2); Mean Corpuscular HGB Conc 33.3 g/dl (32-36); Mean Corpuscular Hemoglobin 31.3 pg (26-34); Mean Corpuscular Volume 93.9 fl (80-100); Mean Platelet Volume 11.3 fl (7.4-10.4); Monocytes Absolute Auto 0.6 K/mm3 (0.1-0.6); Monocytes Percent Auto 11.7 % (2.6-8.5); Neutrophils Absolute Auto 2.5 K/mm3 (1.3-6.7); Platelet Count Result 116 k/mm3 (150-375); Red Cell Distribution Width 12.9 % (11.5-14.5); White Blood Count 5.1 K/mm3 (4.5-10.0)
[2020-03-24 13:07] LABS: Alanine Aminotransferase 63 U/L (4-50); Albumin Level 4.1 g/dL (3.5-5.1); Alkaline Phosphatase 133 U/L (38-126); Anion Gap 6 mmol/L (8-16); Aspartate Amino Transferase 80 U/L (17-59); Blood Urea Nitrogen 11 mg/dL (9-20); Calcium 9.4 mg/dL (8.4-10.2); Carbon Dioxide 30 mmol/L (22-30); Chloride 103 mmol/L (98-107); Estimated Glomerular Filt Rate > 60; Glucose 89 mg/dL (75-110); Lactate Dehydrogenase 378 U/L (313-618); Potassium 4.9 mmol/L (3.4-5.0); Sodium 139 mmol/L (137-145)
== END 2020-03-24 10:34 | disposition home or self-care (01) ==
PROVIDERS: PCP Family Medicine; Visit Provider Internal Medicine Hematology & Oncology
DX: C85.93 Non-Hodgkin lymphoma, unspecified, intra-abdominal lymph nodes (principal)
CPT/HCPCS: 36415; 80053; 83615; 85025; 88184

== ENCOUNTER 2020-04-06 12:52 | Outpatient (CLI) | payer OTHER, SELFPAY ==
[2020-04-12 21:07] LABS: HCV Genotype, LiPA 1a
== END 2020-04-06 12:53 | disposition home or self-care (01) ==
PROVIDERS: PCP Family Medicine; Visit Provider Internal Medicine Gastroenterology
DX: B19.20 Unspecified viral hepatitis C without hepatic coma (principal); K74.60 Unspecified cirrhosis of liver; D69.6 Thrombocytopenia, unspecified
CPT/HCPCS: 36415; 81256; 87522

== ENCOUNTER 2020-04-24 00:33 | Outpatient (CLI) | payer OTHER, SELFPAY ==
[2020-04-24 18:12] LABS: SARS-CoV-2 RNA PCR Negative
== END 2020-04-24 00:34 | disposition home or self-care (01) ==
LOC: ANHCOVIDDT 00:33
PROVIDERS: PCP Family Medicine; Visit Provider Internal Medicine Gastroenterology
DX: Z01.812 Encounter for preprocedural laboratory examination (principal); Z20.828 Contact with and (suspected) exposure to other viral communicable diseases
CPT/HCPCS: 87635; C9803; U0003

== ENCOUNTER 2020-04-26 02:44 | Day surgery (SDC) | payer OTHER, SELFPAY ==
[2020-04-19 15:09] VITALS: BMI 26.8
--- NOTE | 2020-04-26 07:21 | WPDANESEPPF ---
Anes - Initial Pre Proc Eval Procedure: Operation Date: 04/26/20 09:30 Proposed Procedures p Esophagogastroduodenoscopy & Screening Colonoscopy - Wyatt Pillai MD Date/Time: 04/26/20 07:21 Surgeon: Wyatt Pillai MD Pre Op Diagnosis: cirrhosis, neoplasm screening Patient Data Age: 70 Gender: M Height: 1.73 m Weight: 80 kg Allergies Allergy/AdvReac Type Severity Reaction Status Date / Time fexofenadine [From Yazmin] Allergy Severe Blurry Verified 04/26/20 08:50 Vision Home Medications Medication Instructions Recorded Confirmed Type simply saline 5 ml INTRANASAL BID #1 device 03/02/20 04/19/20 Rx fluticasone propionate 50 1 spray NASAL BID #18.2 ml 03/02/20 04/19/20 Rx mcg/actuation nasal spray,suspension magnesium 250 mg PO DAILY 04/19/20 04/19/20 History dinrwxhx-oyq-govny-vit K-lycop 1 tablet PO DAILY 04/19/20 04/19/20 History [Men's Multivitamin] omega-3 fatty acids-fish oil [Fish 1 cap PO DAILY 04/19/20 04/19/20 History Oil Extra Strength] Patient hx anesthesia problems: none Family hx anesthesia problems: none PMFSH Past Medical History Medical History (Updated 04/26/20 @ 09:03 by Festus Zapata DO) Cirrhosis asymptomatic Colon cancer screening Former smoker Hepatitis C Surgical History Surgical History History of nasal surgery Patient reports surgical intervention due to sustained epistaxis, performed at [place]. History of surgery on left wrist With hardware. Social History Social History Social History: Surrogate decision maker: Theresa Rodríguez, daughter. Code status: Full code. Smoking packs per day: 1 Smoking cigarettes per day: 20.0 Years smoked: 30 Smoking pack-years: 30.00 Smoking status: Former smoker Tobacco type: cigarettes Alcohol intake: current Substance use: never Living arrangements: alone Additional living arrangements comments: The patient lives in his own home in [place] with his CT. 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 Gender identity (if verbalized by the patient): Male Spiritual care concerns: No Anes - Eval Final PreProcedure Day of Procedure 04/26/20 07:21 Patient weight: overweight Heart: regular rate and rhythm Lungs: clear to auscultation and normal air movement Airway: Mallampati scale class II Neurological: alert and oriented Last oral intake: >/= 8 hours ASA classification: III Emergent: no Anesthetic plan: proceed Anesthesia type and monitoring: general GIVS and standard monitoring Informed Consent: The patient's anesthetic plan and its attendant risks and benefits were discussed with the patient/family/POA. Questions were solicited and answers provided to the satisfaction of the patient/family/POA.
[2020-04-26 08:51] VITALS: BP 148/71; PULSE 78; RESP 18; TEMP 36.2; O2SAT 100; BMI 25.7
[2020-04-26] MEDS: LACTATED RINGERS 1,000 ML 150 ML IV CONT (09:09)
[2020-04-26] MEDS: GENTAMICIN 80MG/SOD CHL 50 ML 80 MG/50 ML BAG 100 MG IVPB (09:11)
--- NOTE | 2020-04-26 09:36 | PM.HPGS ---
History of Present Illness History of Present Illness Consent: Risks, benefits, and alternatives have been discussed and questions answered. Patient agrees to proceed with procedure. 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 Review of Systems Constitutional: Constitutional: Denies headache(s) and Denies weakness Eyes: Eyes: Denies blurry vision ENT: Reports Normal hearing present, Denies headache(s) and Denies neck pain Cardiovascular: Cardiovascular: Denies chest pain and Denies dyspnea Respiratory: Respiratory: Denies dyspnea Gastrointestinal: Gastrointestinal: Reports no additional gastrointestinal complaints Genitourinary: Genitourinary: Denies dysuria Musculoskeletal: Musculoskeletal: Denies neck pain Integumentary/Breasts: Skin/Breast: Denies dry skin Neurologic: Reports Normal hearing present, Denies headache(s) and Denies weakness Psychiatric: Psychiatric: Denies anxiety Endocrine: Endocrine: Denies change in body appearance Hematologic/Lymphatic: Hematologic/Lymphatic: Denies easy bleeding Allergic/Immunologic: Allergic/Immunologic: Denies urticaria PMF Past Medical History Medical History (Updated 04/26/20 @ 09:37 by Wyatt Pillai MD) Cirrhosis asymptomatic Colon cancer screening Former smoker Hepatitis C Surgical History Surgical History History of nasal surgery Patient reports surgical intervention due to sustained epistaxis, performed at [place]. History of surgery on left wrist With hardware. Social History Social History Social History: Surrogate decision maker: Theresa Rodríguez, daughter. Code status: Full code. Smoking packs per day: 1 Smoking cigarettes per day: 20.0 Years smoked: 30 Smoking pack-years: 30.00 Smoking status: Former smoker Tobacco type: cigarettes Alcohol intake: current Substance use: never Living arrangements: alone Additional living arrangements comments: The patient lives in his own home in [place] with his CT. 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 Gender identity (if verbalized by the patient): Male Spiritual care concerns: No Meds Home Medications and Allergies Home Medications Medication Instructions Recorded Confirmed Type simply saline 5 ml INTRANASAL BID #1 device 03/02/20 04/19/20 Rx fluticasone propionate 50 1 spray NASAL BID #18.2 ml 03/02/20 04/19/20 Rx mcg/actuation nasal spray,suspension magnesium 250 mg PO DAILY 04/19/20 04/19/20 History xgeiraso-log-gdyxs-vit K-lycop 1 tablet PO DAILY 04/19/20 04/19/20 History [Men's Multivitamin] omega-3 fatty acids-fish oil [Fish 1 cap PO DAILY 04/19/20 04/19/20 History Oil Extra Strength] Allergies Allergy/AdvReac Type Severity Reaction Status Date / Time fexofenadine [From Yazmin] Allergy Severe Blurry Verified 04/26/20 08:50 Vision Vital Signs Vital Signs - 24 hr 04/26/20 08:51 Temperature 97.1 F L Pulse Rate 78 Respiratory Rate 18 Blood Pressure 148/71 H Pulse Oximetry 100 Exam Const: General: comfortable and no acute distress HENMT: General nose exam: Normal nares present Eyes: General: appearance normal, both eyes and all related structures Neck: Neck: no JVD Resp: Auscultation: clear to auscultation bilaterally Cardio: Rate: regular rate Rhythm: regular rhythm GI: Inspection: non-distended GI Palp: Yes Soft to palpation Skin: General skin exam: normal color Neuro: General: gait normal Speech: normal speech Extrem: General: normal to inspection Psych: Mental Status: mental status grossly normal Assessment and Plan Assessment and plan (1) Cirrhosis: Code(s):
[2020-04-26] MEDS: AMPICILLIN 2 GM/NS 100 ML 2 GM/100 ML BAG IVPB (09:41)
[2020-04-26 10:14] VITALS: BP 110/68; PULSE 87; RESP 23; O2SAT 95
--- NOTE | 2020-04-26 10:16 | SUR.OPER ---
EGD START: 943 EGD END: 948 COLONOSCOPY START: 954 COLONOSCOPY END: 1009
[2020-04-26 10:24] VITALS: BP 110/63; PULSE 66; RESP 18; O2SAT 100
[2020-04-26 10:34] VITALS: BP 128/64; PULSE 68; RESP 19; O2SAT 100
== END 2020-04-26 10:50 | disposition home or self-care (01) ==
PROVIDERS: PCP Family Medicine; Visit Provider Internal Medicine Gastroenterology
PROC: 0DJ08ZZ Inspection of Upper Intestinal Tract, Via Natural or Artificial Opening Endoscopic (ICD-10-PCS; CPT 43235; principal; 2020-04-26 09:30)
DX: Z12.11 Encounter for screening for malignant neoplasm of colon (principal); D12.2 Benign neoplasm of ascending colon; D12.0 Benign neoplasm of cecum; K57.30 Diverticulosis of large intestine without perforation or abscess without bleeding; K64.8 Other hemorrhoids; K74.69 Other cirrhosis of liver; I85.10 Secondary esophageal varices without bleeding; K29.50 Unspecified chronic gastritis without bleeding; B19.20 Unspecified viral hepatitis C without hepatic coma; Z87.891 Personal history of nicotine dependence
CPT/HCPCS: 45385; 45380; 43239; 88305; J0290; J1580; J2704; J7120

== ENCOUNTER 2020-10-26 10:23 | Outpatient (CLI) | payer OTHER, SELFPAY ==
[2020-10-26 10:43] LABS: Hematocrit 40.3 % (42.0-52.0); Mean Corpuscular HGB Conc 34.7 g/dl (32-36); Mean Corpuscular Hemoglobin 32.2 pg (26-34); Mean Corpuscular Volume 92.6 fl (80-100); Mean Platelet Volume 11.2 fl (7.4-10.4); Platelet Count Result 138 k/mm3 (150-375); Red Blood Count 4.35 M/mm3 (4.6-6.20); Red Cell Distribution Width 13.2 % (11.5-14.5); White Blood Count 6.7 K/mm3 (4.5-10.0)
[2020-10-26 10:58] LABS: Alanine Aminotransferase 18 U/L (4-50); Albumin Level 4.3 g/dL (3.5-5.1); Alkaline Phosphatase 78 U/L (38-126); Anion Gap 3 mmol/L (8-16); Aspartate Amino Transferase 35 U/L (17-59); Bilirubin,Total 0.7 mg/dL (0.2-1.3); Blood Urea Nitrogen 26 mg/dL (9-20); Calcium 11.5 mg/dL (8.4-10.2); Carbon Dioxide 33 mmol/L (22-30); Chloride 105 mmol/L (98-107); Estimated Glomerular Filt Rate 35; Glucose 100 mg/dL (75-110); Sodium 141 mmol/L (137-145)
[2020-10-26 11:07] LABS: Potassium 4.8 mmol/L (3.4-5.0)
== END 2020-10-26 10:24 | disposition home or self-care (01) ==
LOC: ANHLAB 10:25
PROVIDERS: PCP Family Medicine; Visit Provider Internal Medicine Gastroenterology
DX: B19.20 Unspecified viral hepatitis C without hepatic coma (principal); K74.60 Unspecified cirrhosis of liver
CPT/HCPCS: 36415; 80053; 85027

== ENCOUNTER 2020-11-02 08:30 | Outpatient (CLI) | payer OTHER, SELFPAY ==
[2020-11-02 09:02] LABS: Prothrombin Time 13.9 Seconds (11.1-14.7)
== END 2020-11-02 08:31 | disposition home or self-care (01) ==
PROVIDERS: PCP Family Medicine; Visit Provider Internal Medicine Gastroenterology
DX: B19.20 Unspecified viral hepatitis C without hepatic coma (principal); K74.60 Unspecified cirrhosis of liver
CPT/HCPCS: 36415; 85610; 87522

== ENCOUNTER 2020-11-08 07:42 | Outpatient (CLI) | payer OTHER, SELFPAY ==
--- NOTE | ~2020-11-08 | US_ITS ---
US right upper quadrant DATE: 11/08/2020 08:09 INDICATION: Hepatitis C virus infection. Cirrhosis. TECHNIQUE: Real-time imaging and Doppler analysis COMPARISON: 01/19/2020 radionuclide hepatobiliary scan 01/18/2020 CT chest abdomen pelvis FINDINGS: No hepatic or pancreatic space-occupying mass lesion is evident. Normal hepatopedal portal venous flow direction. The liver echo texture however is coarse. There are filling defects with shadowing in the dependent aspect the gallbladder, consistent with cho lelithiasis. No gallbladder wall thickening. Negative sonographic Hill's sign. The common bile duct measures 4.5 mm, normal. Approximately 5 cm and 2 cm right renal cyst IMPRESSION: Cholelithiasis Coarse echotexture of the liver Right renal cysts Reviewed, dictated and finalized at [facility]. Reviewed, dictated and finalized at location [facility].
== END 2020-11-08 07:43 | disposition home or self-care (01) ==
PROVIDERS: PCP Family Medicine; Visit Provider Internal Medicine Gastroenterology
DX: B19.20 Unspecified viral hepatitis C without hepatic coma (principal); K74.60 Unspecified cirrhosis of liver; K80.20 Calculus of gallbladder without cholecystitis without obstruction; N28.1 Cyst of kidney, acquired
CPT/HCPCS: 76705

== ENCOUNTER 2020-12-06 10:25 | Outpatient (CLI) | payer OTHER, SELFPAY ==
[2020-12-08 19:16] LABS: Hepatitis C RNA, Quant PCR <15 IU/mL
== END 2020-12-06 10:26 | disposition home or self-care (01) ==
LOC: ANHLAB 10:25
PROVIDERS: Nurse Practitioner Family; PCP Family Medicine; Visit Provider Internal Medicine Gastroenterology
DX: B19.20 Unspecified viral hepatitis C without hepatic coma (principal)
CPT/HCPCS: 36415; 87522

== ENCOUNTER 2021-02-27 14:48 | Outpatient (CLI) | payer OTHER, SELFPAY ==
--- NOTE | ~2021-02-27 | XR_ITS ---
EXAMINATION:XR cervical spine 4-5V DATE: 02/27/2021 15:25 INDICATION: Neck pain TECHNIQUE: AP, lateral, lateral swimmers and odontoid views of the cervical spine are provided. COMPARISON: None FINDINGS: Alignment is normal. The odontoid is intact. No fracture is identified. The vertebral body heights are maintained. There is moderate loss of intervertebral disc space height at C3-4 and C6-7. There is severe loss of intervertebral disc space height at C5-6. There are large bridging anterior t here is moderate multilevel facet and uncovertebral joint osteoarthritis. Osteophytes in the cervical spine. Prevertebral soft tissues are normal. IMPRESSION: 1. Moderate cervical spondylosis and diffuse idiopathic skeletal hyperostosis (DISH). Reviewed, dictated and finalized at location [facility]. IMPRESSION: 1. Moderate cervical spondylosis and diffuse idiopathic skeletal hyperostosis ( DISH).
--- NOTE | ~2021-02-27 | XR_ITS ---
EXAMINATION: XR shoulder RT min 2V DATE: 02/27/2021 15:25 INDICATION: Right neck pain radiating to the right shoulder. TECHNIQUE: 4 views of the right shoulder were obtained. COMPARISON: None. FINDINGS: Bone alignment is normal. No acute fracture. There is mild osteoarthritis of glenohumeral j oint. There is mild osteoarthritis of acromioclavicular joint with loose bodies. IMPRESSION: 1. Mild osteoarthritis of glenohumeral joint. 2. Mild osteoarthritis of acromioclavicular joint with loose bodies. Reviewed, dictated and finalized at location [facility].
[2021-02-27 19:39] LABS: Alanine Aminotransferase 19 U/L (4-50); Albumin Level 4.5 g/dL (3.5-5.1); Alkaline Phosphatase 95 U/L (38-126); Anion Gap 9 mmol/L (8-16); Aspartate Amino Transferase 28 U/L (17-59); Bilirubin,Total 0.9 mg/dL (0.2-1.3); Blood Urea Nitrogen 17 mg/dL (9-20); Calcium 9.5 mg/dL (8.4-10.2); Carbon Dioxide 27 mmol/L (22-30); Chloride 103 mmol/L (98-107); Estimated Glomerular Filt Rate 60; Glucose 92 mg/dL (65-110); Potassium 4.5 mmol/L (3.4-5.0); Sodium 139 mmol/L (137-145)
== END 2021-02-27 14:49 | disposition home or self-care (01) ==
PROVIDERS: PCP Family Medicine; Visit Provider Family Medicine
DX: B19.20 Unspecified viral hepatitis C without hepatic coma (principal); K74.60 Unspecified cirrhosis of liver; M47.892 Other spondylosis, cervical region; M19.011 Primary osteoarthritis, right shoulder; M24.011 Loose body in right shoulder
CPT/HCPCS: 36415; 72050; 73030; 80053

== ENCOUNTER 2021-05-22 07:35 | Outpatient (CLI) | payer OTHER, SELFPAY ==
--- NOTE | ~2021-05-22 | US_ITS ---
EXAMINATION: US right upper quadrant DATE: 05/22/2021 08:02 INDICATION: Hepatitis C TECHNIQUE: Multiple grayscale and Doppler ultrasound images of the abdomen were obtained. COMPARISON: 11/08/2020 FINDINGS: The head and body of the pancreas are normal. The pancreatic tail is obscured by bowel gas. The liver demonstrates increased echogenicity, heterogenous echotexture, and decreased through trans mission. There is nodularity of the liver surface. No liver lesion is identified. Normal hepatopetal flow in the main portal vein. Stones are present in the nondistended gallbladder. There is no pericho lecystic fluid or gallbladder wall thickening. The normal common bile duct measures 5 mm. There was n o sonographic Hill sign. Cysts are noted in the right kidney. IMPRESSION: 1. Cirrhosis. 2. Cholelithiasis without evidence of cholecystitis. Reviewed, dictated and finalized at [facility].
[2021-05-22 09:29] LABS: Hematocrit 42.1 % (42.0-52.0); Hemoglobin 14.3 g/dL (14.0-18.0); Mean Corpuscular Hemoglobin 32.3 pg (26-34); Mean Platelet Volume 11.4 fl (7.4-10.4); Platelet Count Result 142 k/mm3 (150-375); Red Blood Count 4.43 M/mm3 (4.6-6.20); White Blood Count 4.5 K/mm3 (4.5-10.0)
[2021-05-22 09:38] LABS: INR 1.1; Prothrombin Time 13.7 Seconds (11.1-14.7)
[2021-05-22 09:39] LABS: Alanine Aminotransferase 21 U/L (4-50); Albumin Level 4.5 g/dL (3.5-5.1); Alkaline Phosphatase 81 U/L (38-126); Anion Gap 10 mmol/L (8-16); Aspartate Amino Transferase 32 U/L (17-59); Blood Urea Nitrogen 21 mg/dL (9-20); Calcium 9.5 mg/dL (8.4-10.2); Carbon Dioxide 27 mmol/L (22-30); Chloride 106 mmol/L (98-107); Estimated Glomerular Filt Rate 55; Glucose 94 mg/dL (65-110); Potassium 4.4 mmol/L (3.4-5.0); Sodium 143 mmol/L (137-145)
== END 2021-05-22 07:36 | disposition home or self-care (01) ==
PROVIDERS: PCP Family Medicine; Visit Provider Internal Medicine Gastroenterology
DX: B19.20 Unspecified viral hepatitis C without hepatic coma (principal); K74.60 Unspecified cirrhosis of liver; K80.20 Calculus of gallbladder without cholecystitis without obstruction
CPT/HCPCS: 36415; 76705; 80053; 85027; 85610

== ENCOUNTER 2021-11-07 11:41 | Outpatient (CLI) | payer OTHER, SELFPAY ==
--- NOTE | ~2021-11-07 | XR_ITS ---
EXAMINATION: XR abdomen obstructive series EXAM DATE: 11/07/2021 12:08 INDICATION: K59.00 - Constipation, unspecified . TECHNIQUE: Frontal upright projection of the upper abdomen, frontal projection of the lower abdomen f or interpretation. There is no prior study for comparison. FINDINGS: There is expected amount of colonic stool and gas. No small bowel dilation, nonobstructi ve bowel gas pattern. There are no suspicious calcifications identified. There is no organomegaly suspected. The bones are unremarkable. There is no free intraperitoneal air. The lung bases are clear. IMPRESSION: Unremarkable abdomen x-ray exam. Reviewed, dictated and finalized at location [facility].
[2021-11-07 19:03] LABS: Alanine Aminotransferase 16 U/L (4-50); Albumin Level 5.2 g/dL (3.5-5.1); Alkaline Phosphatase 91 U/L (38-126); Anion Gap 9 mmol/L (8-16); Aspartate Amino Transferase 32 U/L (17-59); Bilirubin,Total 1.2 mg/dL (0.2-1.3); Blood Urea Nitrogen 16 mg/dL (9-20); Calcium 9.8 mg/dL (8.4-10.2); Carbon Dioxide 29 mmol/L (22-30); Chloride 101 mmol/L (98-107); Estimated Glomerular Filt Rate > 60; Glucose 95 mg/dL (65-110); Potassium 5.1 mmol/L (3.4-5.0); Sodium 139 mmol/L (137-145)
== END 2021-11-07 11:42 | disposition home or self-care (01) ==
PROVIDERS: PCP Family Medicine; Visit Provider Family Medicine
DX: K59.00 Constipation, unspecified (principal); R19.7 Diarrhea, unspecified; R20.2 Paresthesia of skin
CPT/HCPCS: 36415; 74019; 80053; 82607; 86003

== ENCOUNTER 2021-11-23 08:00 | Outpatient (CLI) | payer OTHER, SELFPAY ==
[2021-11-23 08:28] LABS: Hematocrit 44.6 % (42.0-52.0); Hemoglobin 14.7 g/dL (14.0-18.0); Mean Corpuscular Hemoglobin 31.7 pg (26-34); Mean Corpuscular Volume 96.1 fl (80-100); Platelet Count Result 151 k/mm3 (150-375); Red Blood Count 4.64 M/mm3 (4.6-6.20); Red Cell Distribution Width 12.3 % (11.5-14.5)
[2021-11-23 08:37] LABS: Alanine Aminotransferase 15 U/L (4-50); Albumin Level 4.5 g/dL (3.5-5.1); Alkaline Phosphatase 81 U/L (38-126); Anion Gap 4 mmol/L (8-16); Aspartate Amino Transferase 28 U/L (17-59); Bilirubin,Total 0.9 mg/dL (0.2-1.3); Blood Urea Nitrogen 16 mg/dL (9-20); Calcium 9.5 mg/dL (8.4-10.2); Carbon Dioxide 32 mmol/L (22-30); Chloride 104 mmol/L (98-107); Estimated Glomerular Filt Rate 60; Glucose 102 mg/dL (65-110); Potassium 4.7 mmol/L (3.4-5.0); Sodium 140 mmol/L (137-145)
[2021-11-23 08:44] LABS: INR 1.1; Prothrombin Time 14.2 Seconds (11.1-14.7)
== END 2021-11-23 08:01 | disposition home or self-care (01) ==
LOC: ANHLAB 08:03
PROVIDERS: PCP Family Medicine; Visit Provider Nurse Practitioner Family
DX: K74.60 Unspecified cirrhosis of liver (principal)
CPT/HCPCS: 36415; 80053; 85027; 85610

== ENCOUNTER 2021-12-06 11:23 | Outpatient (CLI) | payer OTHER, SELFPAY ==
--- NOTE | ~2021-12-06 | XR_ITS ---
EXAMINATION: XR wrist LT min 3V DATE: 12/06/2021 11:41 INDICATION: Left wrist pain. TECHNIQUE: 4 views of left wrist were obtained. COMPARISON: None. FINDINGS: Bone alignment is normal. No fracture. There is mild osteoarthritis of first carpometacarpa l joint and first and second metacarpophalangeal joints. Partially visualized is plate and screw fixa tion of ulnar diaphysis. IMPRESSION: 1. Mild polyarticular osteoarthritis. Reviewed, dictated and finalized at location [facility].
--- NOTE | ~2021-12-06 | XR_ITS ---
EXAMINATION: XR wrist RT min 3V DATE: 12/06/2021 11:42 INDICATION: Right wrist pain. TECHNIQUE: 4 views of right wrist were obtained. COMPARISON: None. FINDINGS: Bone alignment is normal. No fracture. There is mild osteoarthritis of first and second met acarpophalangeal joints and moderate osteoarthritis of first interphalangeal joint and third metacarp ophalangeal joint. IMPRESSION: 1. Polyarticular osteoarthritis. Reviewed, dictated and finalized at location [facility].
--- NOTE | ~2021-12-06 | XR_ITS ---
EXAMINATION:XR cervical spine 4-5V DATE: 12/06/2021 11:41 INDICATION: Paresthesia TECHNIQUE: AP, lateral, lateral swimmers and odontoid views of the cervical spine are provided. COMPARISON: 02/27/2021 FINDINGS: Alignment is normal. The odontoid is intact. No fracture is identified. There is unchanged severe loss of intervertebral disc space height at C5-6. There is stable moderate loss of interverteb ral disc space height at C3-4 and C6-7. There is moderate multilevel facet and uncovertebral joint os teoarthritis. Large bridging anterior osteophytes are present as well. Prevertebral soft tissues are normal. IMPRESSION: 1. Moderate cervical spondylosis and diffuse idiopathic skeletal hyperostosis (DISH) without acute fi ndings or significant interval change. Reviewed, dictated and finalized at location [facility]. IMPRESSION: 1. Moderate cervical spondylosis and diffuse idiopathic skeletal hyperostosis ( DISH) without acute findings or significant interval change.
== END 2021-12-06 11:24 | disposition home or self-care (01) ==
PROVIDERS: PCP Family Medicine; Visit Provider Family Medicine
DX: M18.0 Bilateral primary osteoarthritis of first carpometacarpal joints (principal); M19.042 Primary osteoarthritis, left hand; M19.041 Primary osteoarthritis, right hand; M47.812 Spondylosis without myelopathy or radiculopathy, cervical region
CPT/HCPCS: 72050; 73110

== ENCOUNTER 2021-12-10 08:43 | Outpatient (CLI) | payer OTHER, SELFPAY ==
--- NOTE | ~2021-12-10 | US_ITS ---
US right upper quadrant INDICATION: Cirrhosis of the liver. PROCEDURE: Realtime right upper abdominal ultrasound. COMPARISON: No prior studies for comparison. FINDINGS: The pancreas is normal without focal mass or pancreatic ductal dilation. Liver echotexture is increased with nodular liver surface, consistent with cirrhosis. There is normal directional hayley w in the portal vein. There are multiple gallstones. Common bile duct measures 4.6 mm. No sonographic Hill's sign. IMPRESSION: 1: Cirrhosis of the liver. 2: Cholelithiasis. Reviewed, dictated and finalized at location [facility].
== END 2021-12-10 08:44 | disposition home or self-care (01) ==
PROVIDERS: PCP Family Medicine; Visit Provider Nurse Practitioner Family
DX: K74.60 Unspecified cirrhosis of liver (principal); K80.20 Calculus of gallbladder without cholecystitis without obstruction
CPT/HCPCS: 76705

== ENCOUNTER 2022-04-26 08:35 | Outpatient (CLI) | payer OTHER, SELFPAY ==
--- NOTE | 2022-04-26 09:00 | EST_ITS ---
Patient Info Name: Job Das Age: 72 years : 1950 Gender: Male Ht: 68 in Wt: 180 lbs BSA: 2.00 m2 HR: 56 bpm BP: 148 / 86 mmHg Heart Rhythm: Sinus Rhythm Technical Quality: Fair Exam Date: 04/26/2022 9:10 AM Exam Location: [facility] Patient Status: Outpatient Admit Date: 04/26/2022 Staff Ordering Physician: Faustino Bahena MD Operations Intelligence Superintendent: Leigh Padilla RDCS Attending Provider: DR. GILMORE Referring Physician: Josef MCFARLAND; Exam Type: CA stress echo Study Info Indications - murmur Treadmill exercise stress echocardiogram is performed. Summary 1. 1. Negative Vlad exercise stress test for ischemic ST changes by ECG criteria. 2. 2. Poor functional capacity, achieving 4.6 METs of workload. 3. 3. Baseline hypertension. 4. 4. Rapid HR response to exercise. 5. 5. Appropriate HR recovery at 1 minute post exercise. 6. 6. Negative stress echocardiogram for ischemia by wall motion analysis. 7. 7. Patient informed of the above results. Stress Echo Findings Left Ventricle Appropriate increase in LV endocardial thickening with systole. Appropriate augmentation of contractility with systole. No wall motion abnormality. Left Ventricle Normal LV systolic function, no wall motion abnormality. Protocol: Vlad Stress ECG Details Stage: REST Duration (min): 1 min : 45 sec Speed (mph): 0.0 Grade (%): 0 HR (bpm): 61 SBP (mmHg): 148 DBP (mmHg): 86 METS: --- Stage: REST Duration (min): 10 min : 43 sec Speed (mph): 0.0 Grade (%): 0 HR (bpm): 63 SBP (mmHg): 148 DBP (mmHg): 86 METS: --- Stage: STAGE 1 Duration (min): 1 min : 0 sec Speed (mph): 1.7 Grade (%): 10 HR (bpm): 121 SBP (mmHg): 148 DBP (mmHg): 86 METS: --- Stage: STAGE 1 Duration (min): 2 min : 0 sec Speed (mph): 1.7 Grade (%): 10 HR (bpm): 151 SBP (mmHg): 148 DBP (mmHg): 86 METS: --- Stage: STAGE 1 Duration (min): 2 min : 1 sec Speed (mph): 0.0 Grade (%): 0 HR (bpm): 151 SBP (mmHg): 148 DBP (mmHg): 86 METS: --- Stage: RECOVERY Duration (min): 0 min : 58 sec Speed (mph): 0.0 Grade (%): 0 HR (bpm): 120 SBP (mmHg): 152 DBP (mmHg): 61 METS: --- Stage: RECOVERY Duration (min): 1 min : 58 sec Speed (mph): 0.0 Grade (%): 0 HR (bpm): 104 SBP (mmHg): 152 DBP (mmHg): 61 METS: --- Stage: RECOVERY Duration (min): 2 min : 58 sec Speed (mph): 0.0 Grade (%): 0 HR (bpm): 131 SBP (mmHg): 152 DBP (mmHg): 61 METS: --- Stage: RECOVERY Duration (min): 3 min : 52 sec Speed (mph): 0.0 Grade (%): 0 HR (bpm): 80 SBP (mmHg): 176 DBP (mmHg): 55 METS: --- Rest HR: 63 bpm Peak HR: 152 bpm Rest Sys BP: 148 mmHg Peak Sys BP: 176 mmHg Max Pred HR: 150 bpm % Max Pred HR: 101 % Target HR: 128 bpm Max RPP: 26,752 bpm*mmHg Caicedo Score: -7 Termination Reason: Reached target heart rate or workload Cardiac Symptoms: Shortness of breat
== END 2022-04-26 08:36 | disposition home or self-care (01) ==
LOC: ANHCARD 08:37
PROVIDERS: PCP Family Medicine; Visit Provider Family Medicine
DX: R01.1 Cardiac murmur, unspecified (principal); I10 Essential (primary) hypertension
CPT/HCPCS: 93351

== ENCOUNTER 2022-05-24 01:24 | Day surgery (SDC) | payer OTHER, SELFPAY ==
[2022-05-03 15:45] VITALS: BMI 27.4
[2022-05-24 11:31] VITALS: BP 148/75; PULSE 48; RESP 16; TEMP 36; O2SAT 100
[2022-05-24] MEDS: LACTATED RINGERS 1,000 ML 150 ML IV CONT (11:41)
--- NOTE | 2022-05-24 11:58 | PM.HPGS ---
History of Present Illness History of Present Illness Consent: Risks, benefits, and alternatives have been discussed and questions answered. Patient agrees to proceed with procedure. Chief complaint: cirrhosis Narrative: Job Das is a 72 year old male with cirrhosis, s/p hcv eradicated with small size esophageal varices in 2020 currently on propranolol, no report of gib Review of Systems Constitutional: Constitutional: Denies headache(s) and Denies weakness Eyes: Eyes: Denies blurry vision ENT: Reports Normal hearing present, Denies headache(s) and Denies neck pain Cardiovascular: Cardiovascular: Denies chest pain and Denies dyspnea Respiratory: Respiratory: Denies dyspnea Gastrointestinal: Gastrointestinal: Reports no additional gastrointestinal complaints Genitourinary: Genitourinary: Denies dysuria Musculoskeletal: Musculoskeletal: Denies neck pain Integumentary/Breasts: Skin/Breast: Denies dry skin Neurologic: Reports Normal hearing present, Denies headache(s) and Denies weakness Psychiatric: Psychiatric: Denies anxiety Endocrine: Endocrine: Denies change in body appearance Hematologic/Lymphatic: Hematologic/Lymphatic: Denies easy bleeding Allergic/Immunologic: Allergic/Immunologic: Denies urticaria PMFSH Past Medical History Medical History (Updated 03/21/22 @ 07:53 by Faustino Bahena MD) Adenomatous colon polyp Cirrhosis asymptomatic Colon cancer screening Constipation Esophageal varices determined by endoscopy Former smoker Hepatitis C Renal failure Surgical History Surgical History History of nasal surgery Patient reports surgical intervention due to sustained epistaxis, performed at [place]. History of surgery on left wrist With hardware. Family History Family History Father Cancer Patient's father is Sibling Patient's brother is Lung cancer Social History Social History Social History: Surrogate decision maker: Theresa Rodríguez, daughter. Code status: Full code. Smoking packs per day: 1 Smoking cigarettes per day: 20.0 Years smoked: 30 Smoking pack-years: 30.00 Smoking status: Former smoker Tobacco type: cigarettes Alcohol intake: current Alcohol use details: occasional wine, whiskey Substance use: never Substance use type: does not use Living arrangements: alone Additional living arrangements comments: The patient lives in his own home in [place] with his CT. 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 Gender identity (if verbalized by the patient): Male Spiritual care concerns: No Meds Home Medications and Allergies Home Medications Medication Instructions Recorded Confirmed Type gabapentin 300 mg capsule 300 mg PO BID #180 caps 04/03/22 05/24/22 Rx biotin 5,000 mcg sublingual tablet 5,000 mcg sublingual DAILY 05/03/22 05/24/22 History diclofenac sodium 1 % topical gel 4 g topical QID PRN Pain 05/03/22 05/24/22 History (Voltaren Arthritis Pain) omega-3 fatty acids 500 mg capsule 500 mg PO DAILY 05/03/22 05/24/22 History polyethylene glycol 3350 17 17 g PO DAILY PRN Constipation 05/03/22 05/24/22 History gram/dose oral powder (Miralax) propranolol 20 mg tablet 20 mg PO DAILY 05/03/22 05/24/22 History vitamin B complex (B 1 tablet PO Q48H 05/03/22 05/24/22 History Complex-Vitamin B12 tablet) vitamin E (dl, acetate) 180 mg 180 mg PO Q48H 05/03/22 05/24/22 History (400 unit) capsule Allergies Allergy/AdvReac Type Severity Reaction Status Date / Time fexofenadine [From Yazmin] Allergy Severe Blurry Verified 05/24/22 11:28 Vision Vital Signs Vital Signs - 24 hr 05/24/22 11:31 Temperature 96.8 F L Pulse Rate 48 L Respiratory Rate 16 Blood Pressure 148/75
--- NOTE | 2022-05-24 12:03 | WPDANESEPPF ---
Anes - Initial Pre Proc Eval Procedure: Operation Date: 05/24/22 12:30 Proposed Procedures p Esophagogastroduodenoscopy - Wyatt Pillai MD Date/Time: 05/24/22 12:03 Surgeon: Wyatt Pillai MD Pre Op Diagnosis: cirrhosis Patient Data Age: 72 Gender: M Height: 1.73 m Weight: 80.8 kg Last Vital Signs Temp 96.8 F L 05/24/22 11:31 Pulse 48 L 05/24/22 11:31 Resp 16 05/24/22 11:31 BP 148/75 H 05/24/22 11:31 Pulse Ox 100 05/24/22 11:31 O2 Del Method Room Air 05/24/22 11:31 Allergies Allergy/AdvReac Type Severity Reaction Status Date / Time fexofenadine [From Yazmin] Allergy Severe Blurry Verified 05/24/22 11:28 Vision Home Medications Medication Instructions Recorded Confirmed Type gabapentin 300 mg capsule 300 mg PO BID #180 caps 04/03/22 05/24/22 Rx biotin 5,000 mcg sublingual tablet 5,000 mcg sublingual DAILY 05/03/22 05/24/22 History diclofenac sodium 1 % topical gel 4 g topical QID PRN Pain 05/03/22 05/24/22 History (Voltaren Arthritis Pain) omega-3 fatty acids 500 mg capsule 500 mg PO DAILY 05/03/22 05/24/22 History polyethylene glycol 3350 17 17 g PO DAILY PRN Constipation 05/03/22 05/24/22 History gram/dose oral powder (Miralax) propranolol 20 mg tablet 20 mg PO DAILY 05/03/22 05/24/22 History vitamin B complex (B 1 tablet PO Q48H 05/03/22 05/24/22 History Complex-Vitamin B12 tablet) vitamin E (dl, acetate) 180 mg 180 mg PO Q48H 05/03/22 05/24/22 History (400 unit) capsule Patient hx anesthesia problems: none Family hx anesthesia problems: none Results Review: All pre-operative results and documents have been reviewed as part of the pre-operative evaluation. [facility] Past Medical History Medical History (Updated 03/21/22 @ 07:53 by Faustino Bahena MD) Adenomatous colon polyp Cirrhosis asymptomatic Colon cancer screening Constipation Esophageal varices determined by endoscopy Former smoker Hepatitis C Renal failure Surgical History Surgical History History of nasal surgery Patient reports surgical intervention due to sustained epistaxis, performed at [place]. History of surgery on left wrist With hardware. Family History Family History Father Cancer Patient's father is Sibling Patient's brother is Lung cancer Social History Social History Social History: Surrogate decision maker: Theresa Rodríguez, daughter. Code status: Full code. Smoking packs per day: 1 Smoking cigarettes per day: 20.0 Years smoked: 30 Smoking pack-years: 30.00 Smoking status: Former smoker Tobacco type: cigarettes Alcohol intake: current Alcohol use details: occasional wine, whiskey Substance use: never Substance use type: does not use Living arrangements: alone Additional living arrangements comments: The patient lives in his own home in [place] with his CT. 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 Gender identity (if verbalized by the patient): Male Spiritual care concerns: No Anes - Eval Final PreProcedure Day of Procedure 05/24/22 12:03 Patient weight: normal Heart: regular rate and rhythm Lungs: clear to auscultation Airway: Mallampati scale class II Neurological: alert and oriented Last oral intake: >/= 8 hours ASA classification: III Emergent: no Anesthetic plan: proceed Anesthesia type and monitoring: general GIVS and standard monitoring Results Review: All pre-operative results and documents have been reviewed as part of the pre-operative evaluation. Informed Consent: The patient's anesthetic plan and its attendant risks and benefits were discussed with the patient/family/POA. Questions were solicited and answers provided to the satisfactio
[2022-05-24 12:18] VITALS: BP 96/56; PULSE 50; RESP 24; TEMP 36.4; O2SAT 97
[2022-05-24 12:28] VITALS: BP 100/66; PULSE 49; RESP 16; O2SAT 97
[2022-05-24 12:38] VITALS: BP 126/73; PULSE 52; RESP 20; O2SAT 97
== END 2022-05-24 12:50 | disposition home or self-care (01) ==
PROVIDERS: PCP Family Medicine; Visit Provider Internal Medicine Gastroenterology
PROC: 0DJ08ZZ Inspection of Upper Intestinal Tract, Via Natural or Artificial Opening Endoscopic (ICD-10-PCS; CPT 43235; principal; 2022-05-24 12:30)
DX: I85.00 Esophageal varices without bleeding (principal); K74.60 Unspecified cirrhosis of liver; Z87.891 Personal history of nicotine dependence; Z86.19 Personal history of other infectious and parasitic diseases
CPT/HCPCS: 43235; J2704; J7120

== ENCOUNTER 2022-06-07 08:13 | Outpatient (CLI) | payer OTHER, SELFPAY ==
--- NOTE | ~2022-06-07 | US_ITS ---
US abdomen limited INDICATION: Cirrhosis. Screening for hepatocellular cancer. PROCEDURE: Realtime right upper abdominal ultrasound. COMPARISON: Ultrasound dated 12/10/2021 FINDINGS: The pancreas is normal without focal mass or pancreatic ductal dilation. Liver echotexture is heterogeneous. There is nodular appearance to the liver surface, consistent with cirrhosis. No di screte hepatic masses are identified. There are gallstones. No gallbladder wall thickening or pericho lecystic fluid. The gallbladder is normal without stones, gallbladder wall thickening or pericholecystic fluid. Comm on bile duct measures 4.6 mm. No sonographic Hill's sign. Incidental note is made of a right renal cyst measuring 5.8 cm. IMPRESSION: 1: Cirrhosis of the liver. 2: Cholelithiasis. Reviewed, dictated and finalized at location A. F OF VITAL STATISTICS
== END 2022-06-07 08:14 | disposition home or self-care (01) ==
LOC: ANHIMG 08:15
PROVIDERS: PCP Family Medicine; Visit Provider Nurse Practitioner
DX: K74.60 Unspecified cirrhosis of liver (principal); K80.20 Calculus of gallbladder without cholecystitis without obstruction; K76.9 Liver disease, unspecified
CPT/HCPCS: 76705

== ENCOUNTER 2022-09-19 07:19 | Outpatient (CLI) | payer OTHER, SELFPAY ==
[2022-09-19 19:32] LABS: Alanine Aminotransferase 20 U/L (6-50); Albumin Level 4.9 g/dL (3.5-5.1); Alkaline Phosphatase 74 U/L (38-126); Anion Gap 6 mmol/L (8-16); Aspartate Amino Transferase 40 U/L (17-59); Bilirubin,Total 0.9 mg/dL (0.2-1.3); Blood Urea Nitrogen 18 mg/dL (9-20); Carbon Dioxide 32 mmol/L (22-30); Chloride 101 mmol/L (98-107); Estimated Glomerular Filt Rate > 60; Glucose 94 mg/dL (65-110); Potassium 4.9 mmol/L (3.4-5.0); Sodium 139 mmol/L (137-145)
[2022-09-19 21:09] LABS: Basophils Percent Auto 0.7 % (0.2-1.2); Eosinophils Absolute Auto 0.5 K/mm3 (0-0.3); Eosinophils Percent Auto 9.7 % (0-4.4); Hematocrit 47.1 % (42.0-52.0); Hemoglobin 15.3 g/dL (14.0-18.0); Lymphocytes Absolute Auto 1.65 K/mm3 (0.9-3.2); Lymphocytes Percent Auto 30.7 % (18.3-44.2); Mean Corpuscular HGB Conc 32.5 g/dl (32-36); Mean Corpuscular Hemoglobin 31.8 pg (26-34); Mean Corpuscular Volume 97.9 fl (80-100); Mean Platelet Volume 11.7 fl (7.4-10.4); Monocytes Absolute Auto 0.5 K/mm3 (0.1-0.6); Monocytes Percent Auto 9.3 % (2.6-8.5); Neutrophils Absolute Auto 2.7 K/mm3 (1.3-6.7); Neutrophils Percent Auto 49.6 % (45.5-73.1); Platelet Count Result 161 k/mm3 (150-375); Red Blood Count 4.81 M/mm3 (4.6-6.20); Red Cell Distribution Width 12.8 % (11.5-14.5); White Blood Count 5.4 K/mm3 (4.5-10.0)
== END 2022-09-19 07:20 | disposition home or self-care (01) ==
PROVIDERS: PCP Family Medicine; Visit Provider Family Medicine
DX: R01.1 Cardiac murmur, unspecified (principal); B19.20 Unspecified viral hepatitis C without hepatic coma; C85.90 Non-Hodgkin lymphoma, unspecified, unspecified site; N19 Unspecified kidney failure; K74.60 Unspecified cirrhosis of liver
CPT/HCPCS: 36415; 80053; 85025

== ENCOUNTER 2023-01-30 09:59 | Outpatient (CLI) | payer OTHER, SELFPAY ==
--- NOTE | ~2023-01-30 | XR_ITS ---
EXAMINATION: XR abdomen/kub 1V INDICATION: Unspecified abdominal pain TECHNIQUE: Supine views of the abdomen were obtained on 2 radiographs. COMPARISON: 11/07/2021 FINDINGS: The bowel gas pattern is normal. Cholelithiasis is noted. The visualized lung bases are contreras ar. There are no dilated loops of bowel. A moderate volume of colonic stool is present. IMPRESSION: 1. Cholelithiasis. 2. Constipation. Reviewed, dictated and finalized at location L.
[2023-01-30 19:24] LABS: Appearance Urine Clear (Clear); Bilirubin Urine Negative (Negative); Blood Urine Negative (Negative); Color Urine Yellow (Yellow); Glucose Urine UA Negative (Negative); Ketones Urine Negative (Negative); Leukocyte Esterase Ur Negative LEU/UL (NEGATIVE); Nitrate Urine Negative (Negative); Protein Urine Negative (Negative); Specific Grav Ur 1.012 (1.001-1.035); Urobilinogen Urine 0.2 mg/dL (<2.0)
[2023-01-30 19:26] LABS: Add Urine Microscopic? NO
== END 2023-01-30 10:00 | disposition home or self-care (01) ==
PROVIDERS: PCP Nurse Practitioner Adult Health; Visit Provider Nurse Practitioner Adult Health
DX: R10.9 Unspecified abdominal pain (principal); R39.9 Unspecified symptoms and signs involving the genitourinary system; K80.20 Calculus of gallbladder without cholecystitis without obstruction; K59.00 Constipation, unspecified
CPT/HCPCS: 74018; 81003

== ENCOUNTER 2023-03-27 07:51 | Outpatient (CLI) | payer OTHER, SELFPAY ==
[2023-03-27 18:55] LABS: Basophils Percent Auto 0.2 % (0.2-1.2); Eosinophils Absolute Auto 0.6 K/mm3 (0-0.3); Hematocrit 45.9 % (42.0-52.0); Hemoglobin 15.2 g/dL (14.0-18.0); Immature Granulocyte Absolute 0.02 K/mm3 (0.00-0.031); Immature Granulocyte Percent A 0.4 % (0-0.5); Lymphocytes Absolute Auto 1.43 K/mm3 (0.9-3.2); Lymphocytes Percent Auto 25.5 % (18.3-44.2); Mean Corpuscular HGB Conc 33.1 g/dl (32-36); Mean Corpuscular Hemoglobin 32.5 pg (26-34); Mean Corpuscular Volume 98.1 fl (80-100); Mean Platelet Volume 11.7 fl (7.4-10.4); Monocytes Absolute Auto 0.6 K/mm3 (0.1-0.6); Neutrophils Percent Auto 53.9 % (45.5-73.1); Platelet Count Result 148 k/mm3 (150-375); Red Blood Count 4.68 M/mm3 (4.6-6.20); Red Cell Distribution Width 12.6 % (11.5-14.5); White Blood Count 5.6 K/mm3 (4.5-10.0)
[2023-03-27 20:50] LABS: Alanine Aminotransferase 17 U/L (6-50); Albumin Level 4.5 g/dL (3.5-5.1); Alkaline Phosphatase 67 U/L (38-126); Aspartate Amino Transferase 42 U/L (17-59); Bilirubin,Total 0.9 mg/dL (0.2-1.3); Blood Urea Nitrogen 18 mg/dL (9-20); Calcium 9.6 mg/dL (8.4-10.2); Carbon Dioxide 33 mmol/L (22-30); Estimated Glomerular Filt Rate 60; Glucose 88 mg/dL (65-110); Potassium 4.2 mmol/L (3.4-5.0); Sodium 140 mmol/L (137-145)
[2023-03-27 22:12] LABS: Anion Gap 5 mmol/L (8-16); Chloride 102 mmol/L (98-107)
== END 2023-03-27 07:52 | disposition home or self-care (01) ==
LOC: ANHBWCLAB 07:53
PROVIDERS: PCP Nurse Practitioner Adult Health; Visit Provider Surgery
DX: K74.60 Unspecified cirrhosis of liver (principal)
CPT/HCPCS: 36415; 80053; 85025; 85610

== ENCOUNTER 2023-04-01 09:38 | Outpatient (CLI) | payer OTHER, SELFPAY ==
--- NOTE | ~2023-04-01 | NM_ITS ---
EXAMINATION: NM hepatobiliary wo pharm DATE: 04/01/2023 11:50 CDT INDICATION: Abdominal pain. COMPARISON: Ultrasound dated 06/07/2022. TECHNIQUE: 4.8 mCi Tc-99m mebrofenin (Choletec) was administered intravenously. Scintigraphic images of the abdomen were obtained for one hour. FINDINGS: There is normal clearance of radiotracer from the blood pool. There is homogeneous tracer u ptake by the liver. Activity progresses to the gallbladder and bowel. IMPRESSION: 1. Normal hepatobiliary scan. Gallbladder ejection fraction not calculated. Reviewed, dictated and finalized at location L.
== END 2023-04-01 09:39 | disposition home or self-care (01) ==
PROVIDERS: PCP Nurse Practitioner Adult Health; Visit Provider Surgery
DX: M54.6 Pain in thoracic spine (principal)
CPT/HCPCS: 78226; A9537

== ENCOUNTER 2023-05-22 08:15 | Outpatient (CLI) | payer OTHER, SELFPAY ==
--- NOTE | ~2023-05-22 | XR_ITS ---
EXAMINATION: XR abdomen/kub 1V DATE: 05/22/2023 08:29 INDICATION: Unspecified abdominal pain. TECHNIQUE: A supine view of the abdomen on 2 radiographs was obtained. COMPARISON: Abdomen radiographs 01/30/2023 FINDINGS: There are no dilated loops of bowel. There is a small volume of stool in the colon. There a re gallstones in the gallbladder. IMPRESSION: 1. Normal bowel gas pattern. 2. Cholelithiasis. Reviewed, dictated and finalized at location E.
[2023-05-22 18:42] LABS: Appearance Urine Clear (Clear); Bilirubin Urine Negative (Negative); Blood Urine Negative (Negative); Color Urine Yellow (Yellow); Glucose Urine UA Negative (Negative); Ketones Urine Negative (Negative); Leukocyte Esterase Ur Negative LEU/UL (NEGATIVE); Nitrate Urine Negative (Negative); Protein Urine Negative (Negative); Specific Grav Ur 1.004 (1.001-1.035); Urobilinogen Urine 0.2 mg/dL (<2.0)
[2023-05-22 18:43] LABS: Add Urine Microscopic? NO
== END 2023-05-22 08:16 | disposition home or self-care (01) ==
LOC: ANHBWCLAB 08:17
PROVIDERS: PCP Nurse Practitioner Adult Health; Visit Provider Nurse Practitioner Adult Health
DX: R10.9 Unspecified abdominal pain (principal); R39.9 Unspecified symptoms and signs involving the genitourinary system; K80.20 Calculus of gallbladder without cholecystitis without obstruction
CPT/HCPCS: 74018; 81003

== ENCOUNTER 2023-10-02 07:57 | Outpatient (CLI) | payer OTHER, SELFPAY ==
--- NOTE | ~2023-10-02 | XR_ITS ---
XR lumbar spine 2-3V DATE: 10/02/2023 08:09 INDICATION: Low right back pain TECHNIQUE: AP, lateral, coned lateral lumbosacral views COMPARISON: 06/07/2022 Limited abdominal ultrasound examination 05/22/2023 KUB FINDINGS: Mild lower thoracic and lumbar levoscoliosis. Prominent degenerative spurring in the lower thoracic spine. There is moderate degenerative disc disease at L1-2. There is moderately severe to severe degenerativ e disease throughout the lumbar and lumbosacral spine from L2-3 to L5-S1. No fracture or bone destruction or spondylolisthesis. The lumbar pedicles are intact. The sacroiliac joints appear normal. Calcified gallstones overlying the right upper quadrant of the abdomen. IMPRESSION: Prominent degenerative changes of the thoracic and lumbar spine Mild thoracolumbar levoscoliosis Cholelithiasis Reviewed, dictated and finalized at location A.
[2023-10-02 19:11] LABS: Appearance Urine Clear (Clear); Bilirubin Urine Negative (Negative); Blood Urine Negative (Negative); Color Urine Yellow (Yellow); Glucose Urine UA Negative (Negative); Ketones Urine Negative (Negative); Leukocyte Esterase Ur Negative LEU/UL (Negative); Nitrate Urine Negative (Negative); Protein Urine Negative (Negative); Specific Grav Ur 1.005 (1.001-1.035); Urobilinogen Urine 0.2 mg/dL (<2.0); pH Urine 7.5 (5.0-9.0)
[2023-10-02 19:14] LABS: Add Urine Microscopic? NO
== END 2023-10-02 07:58 | disposition home or self-care (01) ==
PROVIDERS: PCP Nurse Practitioner Adult Health; Visit Provider Nurse Practitioner Adult Health
DX: R39.9 Unspecified symptoms and signs involving the genitourinary system (principal); K80.20 Calculus of gallbladder without cholecystitis without obstruction; M51.34 Other intervertebral disc degeneration, thoracic region; M51.36 Other intervertebral disc degeneration, lumbar region
CPT/HCPCS: 72100

== ENCOUNTER 2023-10-21 07:54 | Outpatient (CLI) | payer OTHER, SELFPAY ==
[2023-10-21 18:17] LABS: Hematocrit 48.4 % (42.0-52.0); Hemoglobin 15.7 g/dL (14.0-18.0); Mean Corpuscular HGB Conc 32.4 g/dl (32-36); Mean Corpuscular Hemoglobin 32.2 pg (26-34); Mean Corpuscular Volume 99.2 fl (80-100); Platelet Count Result 157 k/mm3 (150-375); Red Blood Count 4.88 M/mm3 (4.6-6.20); Red Cell Distribution Width 12.5 % (11.5-14.5); White Blood Count 6.6 K/mm3 (4.5-10.0)
[2023-10-21 18:27] LABS: Prothrombin Time 13.7 Seconds (11.1-14.7)
[2023-10-21 19:12] LABS: Alanine Aminotransferase 18 U/L (6-50); Albumin Level 4.6 g/dL (3.5-5.1); Alkaline Phosphatase 75 U/L (38-126); Anion Gap 4 mmol/L (4-12); Aspartate Amino Transferase 53 U/L (17-59); Bilirubin,Total 1.2 mg/dL (0.2-1.3); Blood Urea Nitrogen 19 mg/dL (9-20); Calcium 10.2 mg/dL (8.4-10.2); Carbon Dioxide 33 mmol/L (22-30); Chloride 102 mmol/L (98-107); Estimated Glomerular Filt Rate 60; Glucose 98 mg/dL (65-110); Potassium 4.3 mmol/L (3.4-5.0); Sodium 139 mmol/L (137-145)
== END 2023-10-21 07:55 | disposition home or self-care (01) ==
LOC: ANHBWCLAB 07:57
PROVIDERS: PCP Nurse Practitioner Adult Health; Visit Provider Internal Medicine Gastroenterology
DX: K74.60 Unspecified cirrhosis of liver (principal)
CPT/HCPCS: 36415; 80053; 85027; 85610

== ENCOUNTER 2023-10-29 08:33 | Outpatient (CLI) | payer OTHER, SELFPAY ==
--- NOTE | ~2023-10-29 | US_ITS ---
Limited Abdominal Sonogram: Real-time sonographic imaging of the right upper quadrant was performed. Clinical History: Cirrhosis Findings: The liver appears normal with no evidence of mass lesion or bile duct dilatation. Main por pam vein demonstrates normal direction of flow. The gallbladder is well distended, and demonstrates e chogenic gallstone. No gallbladder wall thickening evident. The common bile duct measures 3 mm. The visualized pancreas, aorta, and IVC are unremarkable. Impression: Cholelithiasis. Reviewed, dictated and finalized at location M. Impression: Cholelithiasis.
== END 2023-10-29 08:34 | disposition home or self-care (01) ==
PROVIDERS: PCP Nurse Practitioner Adult Health; Visit Provider Internal Medicine Gastroenterology
DX: K74.60 Unspecified cirrhosis of liver (principal); K80.20 Calculus of gallbladder without cholecystitis without obstruction
CPT/HCPCS: 76705

== ENCOUNTER 2024-03-10 09:16 | Outpatient (CLI) | payer OTHER, SELFPAY ==
--- NOTE | ~2024-03-10 | XR_ITS ---
XR_CERV2-3V_CR Ordering provider: Glory Tello APRN History: . M54.12 - Radiculopathy, cervical region . Comparison: December 06, 2021 FINDINGS: VERTEBRAL BODIES: Fusion is seen at the level of C5-C6. Prominent anterior osteophytes seen at the le britta of C3-C4 and C5-C6. Otherwise, Normal height and alignment. No visible fracture or subluxation. T he dens is intact. DISK SPACES: Narrowing of the disc C3-C4, C4-C5, C5-C6 and C6-C7. Multilevel facet joint disease. Mul tilevel uncovertebral joint osteoarthritic changes. PARASPINOUS SOFT TISSUES: No prevertebral soft tissue swelling. IMPRESSION: No acute osseous abnormality cervical spine. No change from previous examination. Reviewed, dictated and finalized at location A.
== END 2024-03-10 09:17 | disposition home or self-care (01) ==
LOC: ANHBWCIMG 09:19
PROVIDERS: PCP Nurse Practitioner Adult Health; Visit Provider Nurse Practitioner Adult Health
DX: M54.12 Radiculopathy, cervical region (principal)
CPT/HCPCS: 72040

== ENCOUNTER 2024-04-21 09:04 | Outpatient (CLI) | payer OTHER, SELFPAY ==
--- NOTE | ~2024-04-21 | US_ITS ---
Limited Abdominal Sonogram: Real-time sonographic imaging of the right upper quadrant was performed. Clinical History: Cirrhosis of liver Findings: The liver demonstrates nodular contour without evidence of mass lesion or bile duct dilata tion. Main portal vein demonstrates normal direction of flow. The gallbladder is well distended, and contains echogenic, shadowing gallstones. No gallbladder wall thickening. The common bile duct measur es 5 mm. The visualized pancreas, aorta, and IVC are unremarkable. Right kidney measures 11.3 center s in length, with renal cysts present. Impression: Mildly nodular liver contour is compatible with cirrhotic change. No focal mass or biliary dilatation seen. Cholelithiasis. Reviewed, dictated and finalized at location . Impression: Mildly nodular liver contour is compatible with cirrhotic change. No focal mass or biliary dilatation seen. Cholelithiasis.
[2024-04-21 10:34] LABS: Hematocrit 44.5 % (42.0-52.0); Hemoglobin 15.3 g/dL (14.0-18.0); Mean Corpuscular HGB Conc 34.4 g/dl (32-36); Mean Corpuscular Hemoglobin 32.1 pg (26-34); Mean Corpuscular Volume 93.5 fl (80-100); Mean Platelet Volume 11.5 fl (7.4-10.4); Platelet Count Result 159 k/mm3 (150-375); Red Blood Count 4.76 M/mm3 (4.6-6.20); Red Cell Distribution Width 12.3 % (11.5-14.5)
[2024-04-21 10:47] LABS: INR 1.1; Prothrombin Time 14.9 Seconds (11.1-14.7)
[2024-04-21 10:48] LABS: Alanine Aminotransferase 14 U/L (6-50); Albumin Level 4.4 g/dL (3.5-5.1); Alkaline Phosphatase 76 U/L (38-126); Anion Gap 6 mmol/L (4-12); Aspartate Amino Transferase 31 U/L (17-59); Bilirubin,Total 1.2 mg/dL (0.2-1.3); Blood Urea Nitrogen 17 mg/dL (9-20); Calcium 9.3 mg/dL (8.4-10.2); Carbon Dioxide 31 mmol/L (22-30); Chloride 104 mmol/L (98-107); Estimated Glomerular Filt Rate > 60; Glucose 94 mg/dL (65-110); Potassium 4.7 mmol/L (3.4-5.0); Sodium 141 mmol/L (137-145)
== END 2024-04-21 09:05 | disposition home or self-care (01) ==
LOC: ANHIMG 09:05
PROVIDERS: PCP Nurse Practitioner Adult Health; Visit Provider Internal Medicine Gastroenterology
DX: K74.60 Unspecified cirrhosis of liver (principal); K80.20 Calculus of gallbladder without cholecystitis without obstruction
CPT/HCPCS: 36415; 76705; 80053; 85027; 85610

== ENCOUNTER 2024-04-27 08:48 | Outpatient (CLI) | payer OTHER, SELFPAY ==
--- NOTE | ~2024-04-27 | MR_ITS ---
MRI of the cervical spine Clinical History: Radiculopathy Technique: Axial T2-weighted and gradient images, and sagittal T1-weighted, T2-weighted, and STIR shamar ges were acquired. Findings: There is straightening of normal cervical lordosis. No fracture seen. There is minimal grad e 1 anterolisthesis of C4 over C5. No suspicious bone marrow signal abnormality seen. At C2-C3, there is probable left foraminal disc ossify complex and left facet arthropathy, with left neural foraminal narrowing. Right neural foramen preserved. No canal stenosis or cord compression. At C3-C4, there is advanced degenerative disc narrowing, with minimal disc osteophyte complex. There is bilateral facet arthropathy. There is severe right neural foraminal narrowing, and moderate to adv anced left neural foraminal narrowing. No rita canal stenosis or cord compression. At C4-C5, there is severe degenerative disc narrowing. There is diffuse disc osteophyte complex and a dvanced facet arthropathy. There is severe bilateral neural foraminal narrowing, right worse than lef t. There is moderate canal stenosis and cord compression. At C5-C6, there is advanced degenerative disc narrowing. There is minimal disc osteophyte complex. Th ere is bilateral neural foraminal narrowing with bilateral facet arthropathy. No canal stenosis or co rd compression. At C6-C7, there is moderate degenerative disc narrowing. No canal stenosis or cord compression. There is probable bilateral neural foraminal narrowing, right worse than left, with mild facet arthropathy . There is hyperintense cord edema centrally on the right side of the cord at the C5 and C6 levels. Par avertebral soft tissues are unremarkable. Impression: Severe degenerative spondylosis, as detailed above, worst at C4-C5. Hyperintense cord lesion at the C5 and C6 level centrally and on the right side. This presumably repr esents cord edema related to cord compression and probable myelomalacia most and without the C4-C5 le britta. Other nonspecific myelitis is not excluded. Consider postcontrast imaging as indicated to furthe r exclude underlying mass lesion or enhancing lesion. Reviewed, dictated and finalized at [facility]. Impression: Severe degenerative spondylosis, as detailed above, worst at C4-C5. Hyperintense cord lesion at the C5 and C6 level centrally and on the right side . This presumably represents cord edema related to cord compression and probabl e myelomalacia most and without the C4-C5 level. Other nonspecific myelitis is not excluded. Consider postcontrast imaging as indicated to further exclude und erlying mass lesion or enhancing lesion.
== END 2024-04-27 08:49 | disposition home or self-care (01) ==
PROVIDERS: PCP Nurse Practitioner Adult Health; Visit Provider Nurse Practitioner Adult Health
DX: M47.22 Other spondylosis with radiculopathy, cervical region (principal)
CPT/HCPCS: 72141

== ENCOUNTER 2024-04-27 11:19 | Emergency (ER) | payer OTHER, SELFPAY ==
[2024-04-27] VITALS (17 sets, daily range): BP systolic 132–169; BP diastolic 63–87; PULSE 53–72; RESP 11–18; TEMP 36.5–36.9; O2SAT 85–100
--- NOTE | ~2024-04-27 | XR_ITS ---
EXAMINATION: XR chest 2V DATE: 04/27/2024 18:18 INDICATION: Cough. TECHNIQUE: Frontal and lateral views of the chest were obtained. COMPARISON: Chest 2 views 02/29/2020 FINDINGS: There is no pneumonia, pleural effusion, or pneumothorax. The heart size is normal. There i s mild chronic anterior wedging of multiple vertebral bodies. IMPRESSION: 1. No acute cardiopulmonary disease. Reviewed, dictated and finalized at location A.
--- NOTE | ~2024-04-27 | CT_ITS ---
CT cervical spine wo con Ordering provider: Jacquie Garcia MD History: . abnormal cervical MRI . Comparison: None. Technique: CT of the cervical spine was performed without contrast. Sagittal and coronal reformatted images were also obtained and reviewed. Automated exposure control and iterative reconstruction gertrudis hnique were employed. The dose-length product was 392.41 mGy-cm. FINDINGS: VERTEBRAE: Prominent anterior osteophytes is noted suggestive of DISH. No definite subluxation or acu te fracture. The occipital condyles are intact. DISC SPACES: Narrowing of the disc spaces C3-C4, C4-C5, C5-C6, C6-C7 and C7-T1. Multilevel facet join t disease. Multilevel uncovertebral joint osteoarthritic changes. Narrowing of the left foramina at t he level of C2-C3. Mild narrowing of the foramina at the level of C4-C5, and C5-C6. PARASPINOUS SOFT TISSUES: Bilateral small lymph nodes are noted. Slightly enlarged right lobe of the thyroid with extension posteriorly. Enlarged parathyroid gland cannot be excluded. Clinical correlation advised. Thickened wall of the es ophagus. IMPRESSION: No acute osseous abnormality cervical spine. DISH changes are seen in the spine. Multilevel degenerative disc disease with variable degrees of intervertebral foraminal narrowing. Reviewed, dictated and finalized at location A. IMPRESSION: No acute osseous abnormality cervical spine. DISH changes are seen in the spine. Multilevel degenerative disc disease with variable degrees of intervertebral fo raminal narrowing.
--- NOTE | ~2024-04-27 | XR_ITS ---
XR cervical spine 4-5V Ordering provider: Jacquie Garcia MD History: . extension,flexion, AP/latera . Comparison: March 10, 2024 FINDINGS: VERTEBRAL BODIES: Prominent anterior osteophytes suggestive of DISH. Minimal anterolisthesis at the l evel of C4-C5., Otherwise Normal height and alignment. No visible fracture or subluxation. The dens i s intact. DISK SPACES: Narrowing of all the disc spaces from C3-C4 down to C7-T1. Multilevel uncovertebral join t osteoarthritic changes. PARASPINOUS SOFT TISSUES: No prevertebral soft tissue swelling. IMPRESSION: No acute osseous abnormality cervical spine. Severe degenerative changes of the spine. Reviewed, dictated and finalized at location A.
[2024-04-27 13:20] LABS: Basophils Percent Auto 0.5 % (0.2-1.2); Eosinophils Absolute Auto 0.5 K/mm3 (0-0.3); Eosinophils Percent Auto 7.8 % (0-4.4); Hematocrit 43.3 % (42.0-52.0); Hemoglobin 14.9 g/dL (14.0-18.0); Immature Granulocyte Absolute 0.02 K/mm3 (0.00-0.031); Immature Granulocyte Percent A 0.3 % (0-0.5); Lymphocytes Percent Auto 22.8 % (18.3-44.2); Mean Corpuscular HGB Conc 34.4 g/dl (32-36); Mean Corpuscular Hemoglobin 32.5 pg (26-34); Mean Corpuscular Volume 94.3 fl (80-100); Mean Platelet Volume 11.6 fl (7.4-10.4); Monocytes Absolute Auto 0.9 K/mm3 (0.1-0.6); Monocytes Percent Auto 13.8 % (2.6-8.5); Neutrophils Absolute Auto 3.4 K/mm3 (1.3-6.7); Neutrophils Percent Auto 54.8 % (45.5-73.1); Platelet Count Result 131 k/mm3 (150-375); Red Blood Count 4.59 M/mm3 (4.6-6.20); Red Cell Distribution Width 12.4 % (11.5-14.5); White Blood Count 6.2 K/mm3 (4.5-10.0)
[2024-04-27 13:28] LABS: Alanine Aminotransferase 21 U/L (6-50); Albumin Level 4.4 g/dL (3.5-5.1); Alkaline Phosphatase 72 U/L (38-126); Anion Gap 8 mmol/L (4-12); Aspartate Amino Transferase 33 U/L (17-59); Bilirubin,Total 1.4 mg/dL (0.2-1.3); Blood Urea Nitrogen 13 mg/dL (9-20); Calcium 9.4 mg/dL (8.4-10.2); Carbon Dioxide 32 mmol/L (22-30); Chloride 102 mmol/L (98-107); Estimated CRCL calculation 48 ml/min; Estimated Glomerular Filt Rate 60; Glucose 97 mg/dL (65-110); Potassium 4.6 mmol/L (3.4-5.0); Sodium 142 mmol/L (137-145)
[2024-04-27 13:42] LABS: INR 1.1; Partial Thromboplastin Time 29.6 Seconds (22.3-36.8); Prothrombin Time 14.7 Seconds (11.1-14.7)
--- NOTE | 2024-04-27 15:49 | ED.RECABL ---
HPI - Recheck/Abnormal Lab/Rx General Chief Complaint: Recheck/Abnormal Lab/Rx Stated Complaint: abnormal lab Time Seen by Provider: 04/27/24 14:39 History of Present Illness HPI narrative: 74-year-old male presenting with abnormal outpatient MRI. States that he has been having neck pain that comes and goes for the last several months. He had an outpatient MRI today and then he received a call saying he needed to come to the ER. He denies any worsening pain. States that his neck actually does not really hurt today. States he has intermittent tingling in his bilateral hands which is currently not present. He denies numbness or weakness. Denies recent trauma. No fevers. No further complaints. Related Data Home Medications Medication Instructions Recorded Confirmed biotin 5,000 mcg sublingual tablet 5,000 mcg sublingual DAILY 05/03/22 03/10/24 omega-3 fatty acids 500 mg capsule 500 mg PO DAILY 05/03/22 03/10/24 vitamin B complex (B 1 tablet PO Q48H 05/03/22 03/10/24 Complex-Vitamin B12 tablet) vitamin E (dl, acetate) 180 mg 180 mg PO Q48H 05/03/22 03/10/24 (400 unit) capsule Allergies Allergy/AdvReac Type Severity Reaction Status Date / Time fexofenadine [From Yazmin] Allergy Severe Blurry Verified 03/10/24 08:54 Vision Review of Systems Review of Systems: All systems reviewed & are unremarkable except as noted in HPI and below PMFSH Past Medical History Medical History Adenomatous colon polyp Cirrhosis asymptomatic Colon cancer screening Constipation Esophageal varices determined by endoscopy Former smoker Hepatitis C Hx of rheumatic fever Hypertension Renal failure Surgical History Surgical History History of nasal surgery Patient reports surgical intervention due to sustained epistaxis, performed at [place]. History of surgery on left wrist With hardware. Family History Family History Father Patient's father is , Onset Age: 44 Acute myocardial infarction, Onset Age: 44 COD Sibling Patient's brother is Lung cancer Social History Social History Social History: Surrogate decision maker: Theresa Rodríguez, daughter. Code status: Full code. Smoking packs per day: 1 Smoking cigarettes per day: 20.0 Years smoked: 30 Smoking pack-years: 30.00 Smoking status: Former smoker Tobacco type: cigarettes Alcohol intake: current Alcohol use details: occasional wine, whiskey Substance use: never Substance use type: does not use Lack of Transportation: No Lack of Food: Never True Current Housing: I Have Housing Concerned About Future Housing: No Difficulty Paying Gas/Electric Bills: No Difficulty Paying for Meds: No Currently Unemployed: No Education: High School Diploma/GED Difficulty w/ Childcare or Family Care: No Living arrangements: alone Additional living arrangements comments: The patient lives in his own home in [place] with his CT. 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 Gender identity (if verbalized by the patient): Male Spiritual care concerns: No Exam Narrative: GENERAL: Well-appearing, well-nourished, and in no acute distress. HEAD: Normocephalic, atraumatic. EYES: PERRLA and EOMI. ENT: Grossly unremarkable NECK: Supple. +L sided paraspinal tenderness of C spine; no midline tenderness CHEST: No respiratory distress. HEART: Regular rate and rhythm EXTREMITIES: Normal range of motion SKIN: Warm, dry, no rash. NEURO: Alert and oriented x3. 5/5 strength in all extremities, including distal upper extremities, no sensory deficits PSYCH: Normal mood and affect. Course Vital Signs Vital signs: Vital Signs T
== END 2024-04-27 18:37 | disposition home or self-care (01) ==
PROVIDERS: Emergency Medicine; Emergency Provider Emergency Medicine; PCP Nurse Practitioner Adult Health
DX: M54.2 Cervicalgia (principal); R05.9 Cough, unspecified; R93.89 Abnormal findings on diagnostic imaging of other specified body structures; I10 Essential (primary) hypertension; K74.60 Unspecified cirrhosis of liver
CPT/HCPCS: 36415; 71046; 72050; 72125; 72141; 80053; 85025; 85055; 85610; 85730; 99284

== ENCOUNTER 2024-05-11 12:40 | Outpatient (CLI) | payer OTHER, SELFPAY ==
--- NOTE | ~2024-05-11 | US_ITS ---
EXAMINATION: US thyroid DATE: 05/11/2024 13:15 INDICATION: Nontoxic goiter TECHNIQUE: Multiple ultrasound images of the thyroid were obtained. COMPARISON: None. FINDINGS: The right thyroid lobe measures 4.1 x 1.6 x 0.8 cm. The left thyroid lobe measures 4.1 x 1.9 x 1.5 c m. 4 mm hypoechoic wider than tall solid nodule with smooth margins and without echogenic foci (TI- RADS 4, moderately suspicious , FNA if >=1.5 cm, annual followup is >=1 cm) in at the left side of th e thyroid isthmus. IMPRESSION: 1. 4 mm TI-RADS 4 nodules in the thyroid isthmus which remains well below size criteria for either bi opsy or follow-up. Otherwise normal thyroid ultrasound. Reviewed, dictated and finalized at location A. IMPRESSION: 1. 4 mm TI-RADS 4 nodules in the thyroid isthmus which remains well below size criteria for either biopsy or follow-up. Otherwise normal thyroid ultrasound.
== END 2024-05-11 12:41 | disposition home or self-care (01) ==
LOC: ANHIMG 12:42
PROVIDERS: PCP Nurse Practitioner Adult Health; Visit Provider Nurse Practitioner Adult Health
DX: E04.2 Nontoxic multinodular goiter (principal)
CPT/HCPCS: 76536

== ENCOUNTER 2024-05-11 13:21 | Outpatient (CLI) | payer OTHER, SELFPAY ==
[2024-05-11 13:59] LABS: Ammonia < 9 umol/L (9-30)
== END 2024-05-11 13:22 | disposition home or self-care (01) ==
LOC: ANHLAB 13:23
PROVIDERS: PCP Nurse Practitioner Adult Health; Visit Provider Nurse Practitioner Family
DX: K74.60 Unspecified cirrhosis of liver (principal)
CPT/HCPCS: 36415; 82140

== ENCOUNTER 2024-06-07 08:28 | Outpatient (CLI) | payer OTHER, SELFPAY ==
--- NOTE | 2024-06-07 08:36 | ECG_ITS ---
Test Date: 2024-06-07 08:49:04 Measurements Intervals [place] Rate: 50 P: 38 [place]: 147 QRS: -45 QRSD: 94 T: -9 QT: 424 QTc: 387 Interpretive Statements SINUS BRADYCARDIA LEFT ANTERIOR FASCICULAR BLOCK BORDERLINE T WAVE ABNORMALITY- INFERIOR LEADS BASELINE ARTIFACT- I, II, AVR, AVL ABNORMAL ECG No previous ECG available for comparison Electronically Signed On 06-07-2024 09:10:01 [employer] by Alan Avila D.O.
[2024-06-07 09:07] LABS: Add Urine Microscopic? NO; Appearance Urine Clear (Clear); Bilirubin Urine Negative (Negative); Blood Urine Negative (Negative); Color Urine Yellow (Yellow); Glucose Urine UA Negative (Negative); Ketones Urine Negative (Negative); Leukocyte Esterase Ur Negative LEU/UL (Negative); Nitrate Urine Negative (Negative); Protein Urine Negative (Negative); Specific Grav Ur 1.003 (1.001-1.035); Urobilinogen Urine 0.2 mg/dL (<2.0)
[2024-06-07 15:27] LABS: Hemoglobin A1C 5.1 % (<5.7)
== END 2024-06-07 08:29 | disposition home or self-care (01) ==
LOC: ANHSURGERY 08:31
PROVIDERS: PCP Nurse Practitioner Adult Health; Visit Provider Neurological Surgery
DX: Z01.818 Encounter for other preprocedural examination (principal); G95.9 Disease of spinal cord, unspecified; I44.4 Left anterior fascicular block; R94.31 Abnormal electrocardiogram [ECG] [EKG]
CPT/HCPCS: 36415; 81003; 83036; 86850; 86900; 86901; 93005

== ENCOUNTER 2024-06-11 01:41 | Day surgery (SDC) | payer OTHER, SELFPAY ==
[2024-06-04 11:18] VITALS: BMI 26.6
--- NOTE | 2024-06-04 11:32 | PC.NURSE ---
Report to the Outpatient Waiting Room, entrance under the green pavilion located off [facility], at time ___0600am____ on date _06/11/24 . Planned Procedure Time: _0730am .? Time changes happen often and if your time is changed the preop area will call you the afternoon before. - You and your visitor will be asked to self-screen and do not enter if you have any COVID symptoms. Please call surgeon if you need to reschedule. - A mask is optional within the hospital at this time. Patients may have clear liquids (water, carbonated beverages, clear teas, apple juice) until 3 hours prior to surgery with a maximum of 20 ounces. - No food from midnight until time of surgery and no smoking. This includes no chewing gum, candy or mints. (0430am) Take only the following medications with a SIP of water on the morning of surgery: Gabapentin and Propanalol. Tylenol if needed DO NOT STOP ANY OF YOUR OTHER PRESCRIPTION MEDICATIONS PRIOR TO SURGERY EXCEPT THE FOLLOWING Medications to discontinue per physician Hold all vitamins and supplements for 3 days prior per Anesthesia Date to take last dose 06/07/24 Please no make-up, nail urdu, hairspray, perfume, deodorant, or body powder the day of surgery.? No jewelry (including any body piercings) or valuables the day of surgery, leave them at home.? Please take a shower or bath the night before, or the morning of, surgery with an antibacterial soap.? Wear comfortable, loose fitting clothing.? - Jewelry must be removed prior to entering the operating room.? Rings and piercings that are not removed may be cut off. - The hospital will not accept responsibility for valuables.? - Please leave all valuables, including medications, at home the day of surgery. If you are going home after surgery, a licensed cdl team truck driver must drive you home.? - NO public transportation without another adult if you receive anesthesia. - We recommend that an adult stay with you for 24 hours following discharge. - We also recommend that you do not drive, make important decision, drink alcoholic beverages, or take any drugs that were not prescribed by your health care provider for at least 24 hours after your discharge time. Follow any additional instructions given to you from your surgeon. Telephone instructions given to _patient and asked if any additional questions and then verbalized understanding. Patient advised to call surgeon office or pre surgery nurse liaison [phone] if any additional questions.
[2024-06-11] VITALS (14 sets, daily range): BP systolic 116–168; BP diastolic 59–89; PULSE 66–96; RESP 12–20; TEMP 36.1–37.2; O2SAT 93–100
--- NOTE | ~2024-06-11 | XR_ITS ---
EXAMINATION: XR fluoroscopy no charge DATE: 06/11/2024 10:25 INDICATION: C4-C5 anterior cervical discectomy with fusion TECHNIQUE: 16 fluoroscopic images of the distal spine were obtained during procedure performed by Dr. Bernard. Radiologist was not present for the imaging or procedure. The amount of fluoroscopy time used during this procedure was 0.3 minutes. Total DAP was 0.385 Gycm^2 COMPARISON: None. FINDINGS: Initial images demonstrate endotracheal tube in expected position passing anterior to large bridging anterior osteophytes at C3-C4 and C5-C6. A curved needle has been advanced to the anterior margin of the C4-C5 disc space. Subsequent images demonstrate resection of the anterior osteophytes first at C5 -C6 and subsequently at C3-C4. Images then demonstrate C4-C5 discectomy and placement of interbody demian ne graft cage and subsequently anterior plate and screw fixation. Final image demonstrates lap sponge markers in the postoperative bed along the left side of the mid to lower cervical spine. IMPRESSION: 1. Fluoroscopy utilized during resection of prominent anterior endplate osteophytes at C3-C4 and C4-C 5 discectomy with instrumented anterior spinal fusion. See procedure note for further detail. Reviewed, dictated and finalized at location B. [facility] [employer] [facility] [facility] IMPRESSION: 1. Fluoroscopy utilized during resection of prominent anterior endplate osteoph ytes at C3-C4 and C4-C5 discectomy with instrumented anterior spinal fusion. Se katie procedure note for further detail.
[2024-06-11] MEDS: LACTATED RINGERS 1,000 ML 30 ML IV CONT ×2 (06:30→10:50)
--- NOTE | 2024-06-11 06:52 | P.PNAN_ITS ---
Anes - Initial Pre Proc Eval Procedure: Operation Date: 06/11/24 07:30 Proposed Procedures p C4-5 Anterior Cervical Discectomy with Fusion, C3-4, C4-5 Removal of Anterior Osteophytes - Chet Bernard MD Date/Time: 06/11/24 06:52 Surgeon: Chet Bernard MD Pre Op Diagnosis: cervical myelopathy,herniated disc Patient Data Age: 74 Gender: M Height: 1.73 m Weight: 79.4 kg Allergies Allergy/AdvReac Type Severity Reaction Status Date / Time fexofenadine [From Yazmin] Allergy Severe Blurry Verified 06/11/24 06:50 Vision Home Medications Medication Instructions Recorded Confirmed Type biotin 5,000 mcg sublingual tablet 5,000 mcg sublingual DAILY 05/03/22 06/11/24 History omega-3 fatty acids 500 mg capsule 500 mg PO DAILY 05/03/22 06/11/24 History vitamin B complex (B 1 tablet PO DAILY 05/03/22 06/11/24 History Complex-Vitamin B12 tablet) vitamin E (dl, acetate) 180 mg 180 mg PO DAILY 05/03/22 06/11/24 History (400 unit) capsule gabapentin 300 mg capsule See Rx Instructions .Route 04/22/24 06/11/24 Rx .COMPLEX #180 caps benzonatate 100 mg capsule 100 mg PO BID PRN cough #60 caps 05/10/24 06/04/24 Rx propranolol 20 mg tablet 20 mg PO DAILY 06/04/24 06/11/24 History Patient hx anesthesia problems: none Family hx anesthesia problems: none Results Review: All pre-operative results and documents have been reviewed as part of the pre- operative evaluation. [facility] Past Medical History Medical History (Updated 06/11/24 @ 06:53 by Carlito Danielle MD) Adenomatous colon polyp Cervical myelopathy Cirrhosis asymptomatic Hep C -treated Colon cancer screening Constipation Esophageal varices determined by endoscopy Former smoker Hepatitis C treated - resolved Hx of rheumatic fever Hypertension Surgical History Surgical History History of nasal surgery Patient reports surgical intervention due to sustained epistaxis, performed at [place]. History of surgery on left wrist With hardware. Family History Family History Father Patient's father is , Onset Age: 44 Acute myocardial infarction, Onset Age: 44 COD Sibling Patient's brother is Lung cancer Social History Social History Social History: Surrogate decision maker: Theresa Rodríguez, daughter. Code status: Full code. Smoking packs per day: 1 Smoking cigarettes per day: 20.0 Years smoked: 35 Smoking pack-years: 35.00 Smoking status: Former smoker Tobacco type: cigarettes Smoking end date: 07/21/04 Alcohol intake: never Alcohol use details: occasional wine, whiskey Substance use: never Substance use type: does not use Lack of Transportation: No Lack of Food: Never True Current Housing: I Have Housing Concerned About Future Housing: No Difficulty Paying Gas/Electric Bills: No Difficulty Paying for Meds: No Currently Unemployed: No Education: High School Diploma/GED Difficulty w/ Childcare or Family Care: No Living arrangements: alone Additional living arrangements comments: The patient lives in his own home in [place] with his CT. 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 Gender identity (if verbalized by the patient): Male Spiritual care concerns: No Anes - Eval Final PreProcedure Day of Procedure 06/11/24 06:52 Patient weight: overweight Heart: regular rate and rhythm Lungs: clear to auscultation Airway: Mallampati scale class II and special considerations poor extension Neurological: alert and oriented Last oral intake: >/= 8 hours ASA classification: III Emergent: no Anesthetic plan: proceed Anesthesia type and monitoring: general ETT and standard monitoring Results Review: All pre-operative results and documents have been reviewed as part of the pre- operative evaluation. Informed Consent: The patient's anesthetic plan and its attendant risks and benefits were discussed with the patient/family/POA. Questions were solicited and answers provided to the satisfaction of the patient/family/POA.
--- NOTE | 2024-06-11 06:55 | P.HP_ITS ---
H&P: HPI History of Present Illness Date/Time: 06/11/24 06:55 Chief Complaint: neck and shoulder pain. this is a 74-year-old gentleman presents as a referral from the emergency department for evaluation of severe degenerative spondylosis with a hypertense cord lesion at C5 and C6. He explains that he has pain in his right side of his neck and shoulder and sometimes the pain goes down to his arm. He underwent a CT scan which shows showed significant dish changes in the spine with an anterior cervical osteophyte that extends from C3-C5 and also noted is on his MRI scan is severe degenerative spondylosis worse at C4-5 and with evidence of a diffuse disc osteophyte complex advanced facet arthropathy and severe spinal canal stenosis and spinal cord compression with evidence of myelomalacia. He actually does not experience any difficulty with his rim turning finisher gait instability or fine motor movements but given the finding on the MRI scan he is here for further evaluation. [facility] Past Medical History Medical History (Updated 06/11/24 @ 06:53 by Carlito Danielle MD) Adenomatous colon polyp Cervical myelopathy Cirrhosis asymptomatic Hep C -treated Colon cancer screening Constipation Esophageal varices determined by endoscopy Former smoker Hepatitis C treated - resolved Hx of rheumatic fever Hypertension Surgical History Surgical History History of nasal surgery Patient reports surgical intervention due to sustained epistaxis, performed at [place]. History of surgery on left wrist With hardware. Family History Family History Father Patient's father is , Onset Age: 44 Acute myocardial infarction, Onset Age: 44 COD Sibling Patient's brother is Lung cancer Social History Social History Social History: Surrogate decision maker: Theresa Rodríguez, daughter. Code status: Full code. Smoking packs per day: 1 Smoking cigarettes per day: 20.0 Years smoked: 35 Smoking pack-years: 35.00 Smoking status: Former smoker Tobacco type: cigarettes Smoking end date: 07/21/04 Alcohol intake: never Alcohol use details: occasional wine, whiskey Substance use: never Substance use type: does not use Lack of Transportation: No Lack of Food: Never True Current Housing: I Have Housing Concerned About Future Housing: No Difficulty Paying Gas/Electric Bills: No Difficulty Paying for Meds: No Currently Unemployed: No Education: High School Diploma/GED Difficulty w/ Childcare or Family Care: No Living arrangements: alone Additional living arrangements comments: The patient lives in his own home in [place] with his CT. 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 Gender identity (if verbalized by the patient): Male Spiritual care concerns: No Meds Home Medications and Allergies Home Medications Medication Instructions Recorded Confirmed Type biotin 5,000 mcg sublingual tablet 5,000 mcg sublingual DAILY 05/03/22 06/11/24 History omega-3 fatty acids 500 mg capsule 500 mg PO DAILY 05/03/22 06/11/24 History vitamin B complex (B 1 tablet PO DAILY 05/03/22 06/11/24 History Complex-Vitamin B12 tablet) vitamin E (dl, acetate) 180 mg 180 mg PO DAILY 05/03/22 06/11/24 History (400 unit) capsule gabapentin 300 mg capsule See Rx Instructions .Route 04/22/24 06/11/24 Rx .COMPLEX #180 caps benzonatate 100 mg capsule 100 mg PO BID PRN cough #60 caps 05/10/24 06/04/24 Rx propranolol 20 mg tablet 20 mg PO DAILY 06/04/24 06/11/24 History Allergies Allergy/AdvReac Type Severity Reaction Status Date / Time fexofenadine [From Yazmin] Allergy Severe Blurry Verified 06/11/24 06:50 Vision Vital Signs Vital Signs - 24 hr 06/11/24 06:03 Temperature 97.8 F Pulse Rate 66 Respiratory Rate 18 Blood Pressure 150/82 H Pulse Oximetry 100 Oxygen Delivery Room Air Exam Neuro: Other: he is awake alert no acute distress moves all his extremities full strength including the deltoid biceps triceps wrist extensors wrist flexors rim turning finisher. He has no notable José Miguel's reflex. I reviewed both his MRI and CT cervical spine which indicates a cervical degenerative spondylosis at C4-5 with myelomalacia noted in the cord at that level tracking down several levels roughly to the C6 disc space. He also has fairly significant anterior osteophytes from essentially the mid C3 vertebral body to the C5-6 disc space which are likely compressing his esophagus Assessment and Plan Assessment and plan (1) Cervical myelopathy: Code(s): G95.9 - Disease of spinal cord, unspecified Status: Acute Plan this gentleman presents with neck pain as with well as right-sided neck and shoulder pain but ultimately found to have significant radiographic evidence of cervical myelopathy. He does not currently have clinical symptoms if any there are subtle however given the amount of myelomalacia noted on his MRI cervical spine we discussed surgical intervention via the C4-5 anterior cervical diskectomy and fusion. Via this approach I also recommend an anterior osteophyte osteotomy from C3-C6. I explained this would be necessary to place the plate and also to prevent further swallowing issues postoperatively. I discussed the risks and benefits of the surgery which include injury to the neck injury to the esophagus injury to other structures in the neck bleeding infection risk of nonunion risk of need for further surgery non improvement of symptoms injury to the spinal cord which can cause stroke paralysis numbness tingling weakness, and . He understands and wishes to proceed. we will work on getting this scheduled as soon as possible
--- NOTE | 2024-06-11 06:58 | WPDHPUPDATE1 ---
History and Physical Update Update Date/Time: 06/11/24 06:58 History and Physical has been reviewed, including an updated exam of the patient. There are NO changes in the patient's condition. Risks, benefits, and alternatives have been discussed and questions answered. Patient agrees to proceed with procedure.
[2024-06-11] MEDS: ceFAZolin 2 GM/D5W 50 ML 2 GM/50 ML BAG IVPB (07:29)
[2024-06-11] MEDS: LIDO 1%/EPINEPHRINE 1:100,000 50 ML VIAL INFILTRATE (08:18)
[2024-06-11] MEDS: fentaNYL CITRATE INJ (*CRX) 100 MCG/2 ML VIAL 25 MCG IV PUSH ×2 (11:12→11:17)
--- NOTE | 2024-06-11 11:40 | P.OP_ITS ---
Procedure Note - Detailed Date of Procedure 06/11/24 Pre-op Diagnosis cervical myelopathy,herniated disc Post-op Diagnosis Same Procedure Performed C4-5 ACDF, C3-C5 anterior cervical osteophyte removal Surgeon Chet Bernard MD Anesthesia General Description of Procedure The patient was brought into the operating room and turned over to anesthesia for intubation. This was performed with the neck in neutral position. Blood pressure goals were discussed to keep patient 10% above baseline. At this point I positioned the patient when slight extension with a gel roll underneath the shoulder. Following this I taped his shoulders down and brought in the C-arm to identify the correct level and planned an incision. I was able to clearly visualize the very large osteophytes across C3-C5. I marked my planned incision in a skin crease roughly at the C4-5 level. I then prepped and draped the patient in the usual fashion. Final time-out was performed. I injected local anesthetic into the incision. I made a linear incision along the crease. Hemostasis was obtained and I used Metzenbaum scissors to dissect down to the platysmal plane. The platysma was sharply dissected. This was retracted and I created a plane between the trachea and the sternocleidomastoid to identify the very large osteophyte underneath my fingers. I was able to carefully palpate the carotid artery laterally. I then placed a single retractor medially to retract over the osteophyte. My social services assistant then had a single retractor on the opposite side. I then used a Kitner to any soft tissue off the osteophyte. I then placed a spinal needle at what I expected the C4-5 disc space to be. I then took a fluoroscopy to confirm the correct level. At this point I brought in the self retaining retractors and placed them such that the osteophyte was visible and the longus colli were retracted out laterally. The esophagus was also retracted medially. At this point I used a combination of drills and curettes to remove the osteophytes starting from the inferior portion of C5. I took an additional x-ray to confirm that I had removed enough bone at this level. I then carefully repeated this process moving up until I got to the top of C3 by carefully removing additional osteophyte with the drill. I periodically. Using fluoroscopy to identify that I was not really too far and I was drilling enough of the osteophyte. Once the osteophyte was completely removed I took another x-ray to confirm the C4-5 disc space. At this point I placed the pins to distract the vertebral body. And place the self retaining retractor. I used a curette to scrape open the disc that was already partially open. I removed any additional disc material with a combination of curette and pituitary rongeur. The disc space was then opened with a paddle distractor to restore normal disc height. I then used a drill to remove any posterior osteophytes to the level of the posterior longitudinal ligament. At this point I used a nerve hook to open the PLL to the level of the spinal cord. I then carefully used a 2-0 Kerrison to remove additional PLL out to the foramen. The spinal cord appeared well decompressed at this point hemostasis was obtained and I trialed an implant. The implant was 7 mm size. I decorticated the endplates leaving the bone shavings within the disc space. I then placed an implant with I factor and remainder of bone into the vertebral body using a mallet to gently tapped into place. I then brought in a 10 mm plate and placed it over the disc space and took a lateral x-ray to confirm the appropriate size. At this point the plate was then secured with 414 mm screws. An AP lateral was taken to con firm appropriate placement of the plate. The plate was locked into place with the locking mechanisms observed. At this point I obtained hemostasis vigorously with bipolar FloSeal checking multiple times to make sure there was no additional bleeding all other bony surfaces were waxed to avoid any additional bleeding. At this point I did place a 10 Beninese drain sub platysmal and out laterally. This drain was then cut to size and placed over the plate and the anterior vertebral column. The wound was then irrigated again and obtained hemostasis. At this point I began closure in layers ending with Steri-Strips over the skin. The drain was secured and the patient was turned over to Anesthesia for extubation. Of note the blood pressure did not drop at any point during the surgery there were no obvious complications. Implants Zavation 10 mm plate, 14 mm screws, 7 mm 5 degree lordotic Orthofix cage Estimated Blood Loss 100 Drains Yes Condition Stable Disposition PACU [facility] Billing Surgery - Charge Forward: Surgery Billing
--- NOTE | 2024-06-11 13:19 | P.PNNEUSUR_ITS ---
Progress Note: A&P Assessment and Plan (1) Cervical myelopathy: Code(s): G95.9 - Disease of spinal cord, unspecified Status: Acute Assessment and Plan: 74-year-old gentleman status post C4-5 ACDF, C3-5 removal of anterior osteophytes. Is doing very well spoke with patient and family at length regarding trying soft foods for the immediate future swallowing improves. We discussed postoperative instructions including no bending lifting twisting or lifting heavier than a gal of milk. He may return to see me in 2 weeks. Tomorrow he can mobilize with physical therapy he should advance his diet with soft foods if his pain is controlled he is ambulating and his drain has minimal output and the drain is removed then he can likely go home tomorrow. I discussed this case with my colleague Dr. Grace who is on-call this weekend and will evaluate this patient tomorrow. Subjective Date/time seen: 06/11/24 13:19 Interval history: He is doing very well he has no significant complaints. He does have persistent numbness in his hands that has not changed from prior. However he denies any pain or weakness in his extremities. Exam Narrative: He is awake alert whose neck is soft flat his voice is clear his trachea is midline. His incision is clean dry and intact. His drain is holding suction. 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 Objective Data Vital Signs Vital Signs: Vital Signs - 24 hr 06/11/24 06:03 06/11/24 10:50 06/11/24 11:00 Temperature 97.8 F 98.0 F Pulse Rate 66 74 80 Respiratory Rate 18 14 16 Blood Pressure 150/82 H 149/76 H 149/81 H Pulse Oximetry 100 100 100 Oxygen Delivery Room Air Simple Face Mask Simple Face Mask Oxygen Flow Rate 8 8 06/11/24 11:15 06/11/24 11:20 06/11/24 11:35 Temperature Pulse Rate 79 80 73 Respiratory Rate 15 14 14 Blood Pressure 164/89 H 168/79 H 155/82 H Pulse Oximetry 100 98 94 Oxygen Delivery Simple Face Mask Room Air Room Air Oxygen Flow Rate 8 06/11/24 11:50 06/11/24 12:05 06/11/24 12:10 Temperature 97.8 F Pulse Rate 74 73 76 Respiratory Rate 16 12 20 Blood Pressure 152/85 H 159/81 H 155/82 H Pulse Oximetry 97 96 96 Oxygen Delivery Room Air Room Air Room Air Oxygen Flow Rate 06/11/24 13:09 Temperature 97 F L Pulse Rate 77 Respiratory Rate 16 Blood Pressure 159/83 H Pulse Oximetry 95 Oxygen Delivery Oxygen Flow Rate Intake/Output Intake/Output: Intake & Output 06/08/24 06/09/24 06/10/24 06/11/24 23:59 23:59 23:59 23:59 Intake Total 150 Output Total 10 Balance 140 Meds/Results Medications: Active Medications Generic Name Dose Route Start Last Admin Trade Name Freq PRN Reason Stop Dose Admin Acetaminophen 650 mg 06/11/24 12:24 Acetaminophen 325 Mg Tablet PO Q6H PRN Mild Pain (1-3) Hydrocodone Bitart/Acetaminophen 1 tab 06/11/24 12:24 Hydrocodone/Acetaminophen (*Crx) 10-325 Mg Tablet PO Q4H PRN Moderate Pain (4-6) Al Hydrox/Mg Hydrox/Simethicone 20 ml 06/11/24 12:24 Mag Hydrox/Al Hydrox/Simeth 30 Ml Udc PO Q4H PRN Indigestion/Heartburn Benzonatate 100 mg 06/11/24 12:24 Benzonatate 100 Mg Capsule PO BID PRN cough Bisacodyl 10 mg 06/11/24 12:24 Bisacodyl 10 Mg Suppository RECTAL DAILY PRN Constipation Cyclobenzaprine HCl 10 mg 06/11/24 12:24 Cyclobenzaprine Hcl 10 Mg Tablet PO TID PRN Muscle Spasms Docusate Sodium 100 mg 06/11/24 21:00 Docusate Sodium 100 Mg Capsule PO Q12HR SCOTT Gabapentin 300 mg 06/11/24 21:00 Gabapentin 300 Mg Capsule BY MOUTH Q12HR SCOTT Hydromorphone HCl 0.5 mg 06/11/24 12:24 Hydromorphone Hcl Inj (*Crx) 1 Mg/Ml Syr IV PUSH Q2H PRN Pain Rated 7-10 Cefazolin Sodium 1 gm in 50 mls @ 100 mls/hr 06/11/24 15:00 Ancef 1 Gm/Ns 50 Ml IVPB Q8H [facility] Non-Formulary Medication 5,000 mcg 06/12/24 09:00 Biotin XX 07/12/24 08:59 DAILY SCOTT Ondansetron HCl 4 mg 06/11/24 12:24 Ondansetron Inj 4 Mg/2 Ml Vial IV PUSH Q8H PRN Nausea And Vomiting Propranolol HCl 20 mg 06/12/24 09:00 Propranolol Hcl 20 Mg Tablet PO DAILY SCOTT Senna/Docusate Sodium 1 tab 06/11/24 12:24 Senna/Docusate Sodium Tablet PO HS PRN Constipation Vitamin B Complex 1 cap 06/12/24 09:00 Vitamin B Complex Capsule PO DAILY SCOTT
[2024-06-11] MEDS: ceFAZolin 1 GM/NS 50 ML 1 GM/50 ML BAG IVPB ×2 (14:23→22:21)
[2024-06-11] MEDS: HYDROcodone/acetaminophen (*CRX) 10-325 MG TABLET 1 TAB PO (14:27)
[2024-06-11] MEDS: CYCLOBENZAPRINE HCL 10 MG TABLET PO ×2 (14:27→20:45)
[2024-06-11] MEDS: ONDANSETRON INJ 4 MG/2 ML VIAL IV PUSH (14:28)
--- NOTE | 2024-06-11 15:54 | PC.NURSE ---
This patient, Job Das, was admitted to [facility] Surg Room 325-01. Patient/family oriented to hospital policies and general routines including ID bracelet, bed and alarms, visiting hours, pain management, procedures, bathroom and other care routines, personal items, smoking policy, room service/diet, and visiting hours. Information on how to activate the Rapid Response Team has been discussed. Patient/Family are encouraged to report perceived risks to care and to ask questions if they do not understand what they are told or what they should do.
[2024-06-11] MEDS: HYDROmorphone HCL INJ (*CRX) 1 MG/ML SYR 0.5 MG IV PUSH (19:35)
[2024-06-11] MEDS: DOCUSATE SODIUM 100 MG CAPSULE PO (20:43)
[2024-06-11] MEDS: BENZONATATE 100 MG CAPSULE PO (20:44)
[2024-06-12 03:24] VITALS: BP 134/64; PULSE 79; RESP 20; TEMP 36.6; O2SAT 92
[2024-06-12] MEDS: HYDROcodone/acetaminophen (*CRX) 10-325 MG TABLET 1 TAB PO ×2 (06:28→12:45)
[2024-06-12] MEDS: ceFAZolin 1 GM/NS 50 ML 1 GM/50 ML BAG IVPB ×2 (06:29→15:49)
[2024-06-12 07:24] VITALS: BP 138/67; PULSE 67; RESP 18; TEMP 36.4; O2SAT 96
[2024-06-12] MEDS: CYCLOBENZAPRINE HCL 10 MG TABLET PO (07:33)
[2024-06-12] MEDS: DOCUSATE SODIUM 100 MG CAPSULE PO (07:33)
[2024-06-12] MEDS: HYDROmorphone HCL INJ (*CRX) 1 MG/ML SYR 0.5 MG IV PUSH (07:33)
[2024-06-12] MEDS: ONDANSETRON INJ 4 MG/2 ML VIAL IV PUSH (07:33)
[2024-06-12 07:44] VITALS: PULSE 79
[2024-06-12] MEDS: PROPRANOLOL HCL 20 MG TABLET PO (07:44)
[2024-06-12] MEDS: GABAPENTIN 300 MG CAPSULE BY MOUTH (07:44)
[2024-06-12] MEDS: VITAMIN B COMPLEX CAPSULE 1 CAP PO (07:44)
[2024-06-12] MEDS: BENZONATATE 100 MG CAPSULE PO (07:44)
--- NOTE | 2024-06-12 08:45 | WPDNEUROSGPN ---
Progress Note: A&P Assessment and Plan (1) Cervical myelopathy: Code(s): G95.9 - Disease of spinal cord, unspecified Status: Acute Plan Mr. Job Das is a 74 y/o M POD # 1 s/p C4-[address] Bernard - PT/OT - Oral pain control - Not voiding. Please give flomax now and push fluids - If he still cannot void, he will have to go home with olivera with f/u with Urology later this week - Drain removed at bedside. Steristrips placed over exit site - Ok to shower on POD # 3 - Dr. Bernard has signed scripts already Dispo: D/c later today vs tomorrow pending pain control, voiding, and PT Subjective Date/time seen: 06/12/24 08:45 Interval history: Patient with significant pain overnight and this AM. Urinary retention with straight cath x 2 overnight. Still not voiding. Required IV Dilaudid this AM. Numbness/tingling in hands feel better postop. He feels his gait is also improving already. TATO output: Exam Neuro: Other: Alert and oriented x 3 Motor: Full strength x 4 Sensory: Intact to LT x 4 Left neck incision: dry with steristrips intact. Flat, no fluid collection Objective Data Vital Signs Vital Signs: Vital Signs - 24 hr 06/11/24 10:50 06/11/24 11:00 06/11/24 11:15 Temperature 36.7 C Pulse Rate 74 80 79 Respiratory Rate 14 16 15 Blood Pressure 149/76 H 149/81 H 164/89 H Pulse Oximetry 100 100 100 Oxygen Delivery Simple Face Mask Simple Face Mask Simple Face Mask Oxygen Flow Rate 8 8 8 06/11/24 11:20 06/11/24 11:35 06/11/24 11:50 Temperature Pulse Rate 80 73 74 Respiratory Rate 14 14 16 Blood Pressure 168/79 H 155/82 H 152/85 H Pulse Oximetry 98 94 97 Oxygen Delivery Room Air Room Air Room Air Oxygen Flow Rate 06/11/24 12:05 06/11/24 12:10 06/11/24 13:09 Temperature 36.6 C 36.1 C L Pulse Rate 73 76 77 Respiratory Rate 12 20 16 Blood Pressure 159/81 H 155/82 H 159/83 H Pulse Oximetry 96 96 95 Oxygen Delivery Room Air Room Air Oxygen Flow Rate 06/11/24 14:20 06/11/24 14:24 06/11/24 15:24 Temperature 37.2 C Pulse Rate 96 91 Respiratory Rate 12 12 Blood Pressure 157/83 H 146/76 H Pulse Oximetry 93 94 Oxygen Delivery Room Air Oxygen Flow Rate 06/11/24 18:13 06/11/24 19:24 06/11/24 20:00 Temperature 36.1 C L Pulse Rate 94 Respiratory Rate 18 Blood Pressure 140/73 Pulse Oximetry 96 Oxygen Delivery Room Air Room Air Oxygen Flow Rate 06/11/24 23:24 06/12/24 03:24 06/12/24 07:44 Temperature 36.8 C 36.6 C Pulse Rate 85 79 79 Respiratory Rate 16 20 Blood Pressure 116/59 L 134/64 Pulse Oximetry 93 92 Oxygen Delivery Oxygen Flow Rate 06/12/24 07:24 Temperature 36.4 C L Pulse Rate 67 Respiratory Rate 18 Blood Pressure 138/67 Pulse Oximetry 96 Oxygen Delivery Oxygen Flow Rate Intake/Output Intake/Output: Intake & Output 06/09/24 06/10/24 06/11/24 06/12/24 23:59 23:59 23:59 23:59 Intake Total 490 Output Total 50 1290 Balance 440 -1290 Meds/Results Medications: Active Medications Generic Name Dose Route Start Last Admin Trade Name Igorq PRN Reason Stop Dose Admin Acetaminophen 650 mg 06/11/24 12:24 Acetaminophen 325 Mg Tablet PO Q6H PRN Mild Pain (1-3) Hydrocodone Bitart/Acetaminophen 1 tab 06/11/24 12:24 06/12/24 06:28 Hydrocodone/Acetaminophen (*Crx) 10-325 Mg Tablet PO 1 tab Q4H PRN Administration Moderate Pain (4-6) Al Hydrox/Mg Hydrox/Simethicone 20 ml 06/11/24 12:24 Mag Hydrox/Al Hydrox/Simeth 30 Ml Udc PO Q4H PRN Indigestion/Heartburn Benzonatate 100 mg 06/11/24 12:24 06/12/24 07:44 Benzonatate 100 Mg Capsule PO 100 mg BID PRN Administration cough Bisacodyl 10 mg 06/11/24 12:24 Bisacodyl 10 Mg Suppository RECTAL DAILY PRN Constipation Cyclobenzaprine HCl 10 mg 06/11/24 12:24 06/12/24 07:33 Cyclobenzaprine Hcl 10 Mg Tablet PO 10 mg TID PRN Administration Muscle Spasms Docusate Sodium 100 mg 06/11/24 21:00 06/12/24 07:33 Docusate Sodium 100 Mg Capsule PO 100 mg Q12HR SCOTT Administration Gabapentin 300 mg 06/11/24 21:00 06/12/24 07:44 Gabapentin 300 Mg Capsule BY MOUTH 300 mg Q12HR SCOTT Administration Hydromorphone HCl 0.5 mg 06/11/24 12:24 06/12/24 07:33 Hydromorphone Hcl Inj (*Crx) 1 Mg/Ml Syr IV PUSH 0.5 mg Q2H PRN Administration Pain Rated 7-10 Cefazolin Sodium 1 gm in 50 mls @ 100 mls/hr 06/11/24 15:00 06/12/24 06:29 Ancef 1 Gm/Ns 50 Ml IVPB 100 mls/hr Q8H SCOTT Administration Non-Formulary Medication 5,000 mcg 06/12/24 09:00 Biotin XX 07/12/24 08:59 DAILY SCOTT Ondansetron HCl 4 mg 06/11/24 12:24 06/12/24 07:33 Ondansetron Inj 4 Mg/2 Ml Vial IV PUSH 4 mg Q8H PRN Administration Nausea And Vomiting Propranolol HCl 20 mg 06/12/24 09:00 06/12/24 07:44 Propranolol Hcl 20 Mg Tablet PO 20 mg DAILY SCOTT Administration Senna/Docusate Sodium 1 tab 06/11/24 12:24 Senna/Docusate Sodium Tablet PO HS PRN Constipation Vitamin B Complex 1 cap 06/12/24 09:00 06/12/24 07:44 Vitamin B Complex Capsule PO 1 cap DAILY SCOTT Administration Radiology Results: ITS Impressions Fluoroscopy 06/11/24 14:57 IMPRESSION: 1. Fluoroscopy utilized during resection of prominent anterior endplate osteophytes at C3-C4 and C4-C5 discectomy with instrumented anterior spinal fusion. See procedure note for further detail.
[2024-06-12] MEDS: TAMSULOSIN HCL 0.4 MG CAPSULE PO (08:48)
[2024-06-12 11:24] VITALS: BP 139/66; PULSE 68; RESP 18; TEMP 36.7; O2SAT 97
[2024-06-12 15:24] VITALS: BP 128/64; PULSE 55; RESP 18; TEMP 36.8; O2SAT 97
== END 2024-06-12 18:00 | disposition home or self-care (01) ==
LOC: ANHSURGERY 06:34 → ANH3MEDSUR 12:33
PROVIDERS: PCP Nurse Practitioner Adult Health; Visit Provider Neurological Surgery
PROC: (CPT 63030; principal; 2024-06-11 07:30)
DX: M50.021 Cervical disc disorder at C4-C5 level with myelopathy (principal); M47.12 Other spondylosis with myelopathy, cervical region; R33.9 Retention of urine, unspecified; K74.60 Unspecified cirrhosis of liver; I10 Essential (primary) hypertension; Z86.19 Personal history of other infectious and parasitic diseases; Z87.891 Personal history of nicotine dependence
CPT/HCPCS: 22551; 20936; 36415; 81003; 83036; 86850; 86900; 86901; 93005; 97110; 97116; 97161; 97165; 99199; A9270; C1713; J0690; J1100; J1171; J1596; J2003; J2004; J2405; J3010; J3370; J7120

== ENCOUNTER 2024-08-09 09:48 | Outpatient (CLI) | payer OTHER, SELFPAY ==
--- NOTE | ~2024-08-09 | XR_ITS ---
XR abdomen/kub 1V 08/09/2024 09:58 INDICATION: Cirrhosis of the liver TECHNIQUE: KUB COMPARISON: 05/22/2023 FINDINGS: Bowel gas pattern is normal. There are gallstones. There is no evidence of free air, mass, organomegaly, ascites or obstruction. No abnormal calculi are seen. The bones appear intact. There is levoscoliosis. Moderate lumbar spondylosis incompletely visualized. IMPRESSION: 1: No acute abdominal abnormality identified. 2: Cholelithiasis. Reviewed, dictated and finalized at location A. ROBE COORDINATOR
== END 2024-08-09 09:49 | disposition home or self-care (01) ==
PROVIDERS: PCP Nurse Practitioner Adult Health; Visit Provider Nurse Practitioner Adult Health
DX: K80.20 Calculus of gallbladder without cholecystitis without obstruction (principal); K74.60 Unspecified cirrhosis of liver; R14.0 Abdominal distension (gaseous)
CPT/HCPCS: 74018

== ENCOUNTER 2024-08-25 00:46 | Day surgery (SDC) | payer OTHER, SELFPAY ==
[2024-08-11 14:16] VITALS: BMI 26.8
[2024-08-25 10:36] VITALS: BP 164/77; PULSE 55; RESP 18; TEMP 37.2; O2SAT 97
[2024-08-25] MEDS: LACTATED RINGERS 1,000 ML 150 ML IV CONT (10:39)
--- NOTE | 2024-08-25 10:44 | P.PNAN_ITS ---
Anes - Initial Pre Proc Eval Procedure: Operation Date: 08/25/24 11:30 Proposed Procedures p Esophagogastroduodenoscopy - Wyatt Pillai MD Date/Time: 08/25/24 10:44 Surgeon: Wyatt Pillai MD Pre Op Diagnosis: abnormal findings on imaging of digestive tract Patient Data Age: 74 Gender: M Height: 1.73 m Weight: 78.2 kg Last Vital Signs Temp 37.2 C 08/25/24 10:36 Pulse 55 L 08/25/24 10:36 Resp 18 08/25/24 10:36 BP 164/77 H 08/25/24 10:36 Pulse Ox 97 08/25/24 10:36 O2 Del Method Room Air 08/25/24 10:36 Allergies Allergy/AdvReac Type Severity Reaction Status Date / Time fexofenadine (From Yazmin) Allergy Severe Blurry Verified 08/11/24 14:13 Vision Home Medications ?Medication ?Instructions ?Recorded ?Confirmed ?Type biotin 5,000 mcg sublingual tablet 5,000 mcg sublingual DAILY 05/03/22 08/25/24 History omega-3 fatty acids 500 mg capsule 500 mg PO DAILY 05/03/22 08/25/24 History vitamin B complex (B 1 tablet PO DAILY 05/03/22 08/25/24 History Complex-Vitamin B12 tablet) vitamin E (dl, acetate) 180 mg 180 mg PO DAILY 05/03/22 08/25/24 History (400 unit) capsule propranolol 20 mg tablet 20 mg PO DAILY 06/04/24 08/25/24 History sennosides 8.6 mg tablet (Senna 8.6 mg PO BID PRN constipation #60 08/09/24 08/25/24 Rx Lax) tabs gabapentin 300 mg capsule 300 mg PO BID #180 caps 08/16/24 08/25/24 Rx Patient hx anesthesia problems: none Family hx anesthesia problems: none Results Review: All pre-operative results and documents have been reviewed as part of the pre- operative evaluation. [facility] Past Medical History Medical History Cervical myelopathy Hypertension Hx of rheumatic fever Esophageal varices determined by endoscopy Constipation Adenomatous colon polyp Colon cancer screening Cirrhosis asymptomatic Hep C -treated Former smoker Hepatitis C treated - resolved Surgical History Surgical History History of nasal surgery Patient reports surgical intervention due to sustained epistaxis, performed at [facility]. History of surgery on left wrist With hardware. Family History Family History Father Patient's father is , Onset Age: 44 Acute myocardial infarction, Onset Age: 44 COD Sibling Patient's brother is Lung cancer Social History Social History Social History: Surrogate decision maker: Theresa Rodríguez, daughter. Code status: Full code. Smoking packs per day: 1 Smoking cigarettes per day: 20.0 Years smoked: 35 Smoking pack-years: 35.00 Smoking status: Never smoker Tobacco type: cigarettes Smoking end date: 07/21/04 Alcohol intake: never Alcohol use details: occasional wine, whiskey Substance use: never Substance use type: does not use Do You Feel Safe in your Home?: Yes Lack of Transportation: No Lack of Food: Never True Current Housing: I Have Housing Concerned About Future Housing: No Difficulty Paying Gas/Electric Bills: No Difficulty Paying for Meds: No Currently Unemployed: No Education: High School Diploma/GED Difficulty w/ Childcare or Family Care: No Living arrangements: alone Additional living arrangements comments: The patient lives in his own home in [place] with his CT. 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 Gender identity (if verbalized by the patient): Male Spiritual care concerns: No Anes - Eval Final PreProcedure Day of Procedure 08/25/24 10:44 Patient weight: normal Heart: regular rate and rhythm Lungs: decreased breath sounds Airway: Mallampati scale class III Neurological: alert and oriented Last oral intake: >/= 8 hours ASA classification: IV Emergent: no Anesthetic plan: proceed Anesthesia type and monitoring: general GIVS and standard monitoring Results Review: All pre-operative results and documents have been reviewed as part of the pre- operative evaluation. Informed Consent: The patient's anesthetic plan and its attendant risks and benefits were discussed with the patient/family/POA. Questions were solicited and answers provided to the satisfaction of the patient/family/POA.
--- NOTE | 2024-08-25 11:12 | P.HP_ITS ---
History of Present Illness History of Present Illness Consent: Risks, benefits, and alternatives have been discussed and questions answered. Patient agrees to proceed with procedure. Chief complaint: abnormal findings on imaging of digestive tract Narrative: Job Das is a 74 year old male with hcv cirrhosis already treated and cure, here for egd. Last one 2021, had previously small EV, currently on propranolol. Review of Systems Review of Systems: All systems reviewed & are unremarkable except as noted in HPI and below PMFSH Past Medical History Medical History Cervical myelopathy Hypertension Hx of rheumatic fever Esophageal varices determined by endoscopy Constipation Adenomatous colon polyp Colon cancer screening Cirrhosis asymptomatic Hep C -treated Former smoker Hepatitis C treated - resolved Surgical History Surgical History History of nasal surgery Patient reports surgical intervention due to sustained epistaxis, performed at [place]. History of surgery on left wrist With hardware. Family History Family History Father Patient's father is , Onset Age: 44 Acute myocardial infarction, Onset Age: 44 COD Sibling Patient's brother is Lung cancer Social History Social History Social History: Surrogate decision maker: Thereas Rodríguez, daughter. Code status: Full code. Smoking packs per day: 1 Smoking cigarettes per day: 20.0 Years smoked: 35 Smoking pack-years: 35.00 Smoking status: Never smoker Tobacco type: cigarettes Smoking end date: 07/21/04 Alcohol intake: never Alcohol use details: occasional wine, whiskey Substance use: never Substance use type: does not use Do You Feel Safe in your Home?: Yes Lack of Transportation: No Lack of Food: Never True Current Housing: I Have Housing Concerned About Future Housing: No Difficulty Paying Gas/Electric Bills: No Difficulty Paying for Meds: No Currently Unemployed: No Education: High School Diploma/GED Difficulty w/ Childcare or Family Care: No Living arrangements: alone Additional living arrangements comments: The patient lives in his own home in [place] with his CT. 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 Gender identity (if verbalized by the patient): Male Spiritual care concerns: No Meds Home Medications and Allergies Home Medications ?Medication ?Instructions ?Recorded ?Confirmed ?Type biotin 5,000 mcg sublingual tablet 5,000 mcg sublingual DAILY 05/03/22 08/25/24 History omega-3 fatty acids 500 mg capsule 500 mg PO DAILY 05/03/22 08/25/24 History vitamin B complex (B 1 tablet PO DAILY 05/03/22 08/25/24 History Complex-Vitamin B12 tablet) vitamin E (dl, acetate) 180 mg 180 mg PO DAILY 05/03/22 08/25/24 History (400 unit) capsule propranolol 20 mg tablet 20 mg PO DAILY 06/04/24 08/25/24 History sennosides 8.6 mg tablet (Senna 8.6 mg PO BID PRN constipation #60 08/09/24 08/25/24 Rx Lax) tabs gabapentin 300 mg capsule 300 mg PO BID #180 caps 08/16/24 08/25/24 Rx Allergies Allergy/AdvReac Type Severity Reaction Status Date / Time fexofenadine (From [employer]) Allergy Severe Blurry Verified 08/11/24 14:13 Vision Vital Signs Vital Signs - 24 hr 08/25/24 10:36 Temperature 98.9 F Pulse Rate 55 L Respiratory Rate 18 Blood Pressure 164/77 H Pulse Oximetry 97 Oxygen Delivery Room Air Exam Const: General: comfortable and no acute distress HENMT: Face/Nose/Sinus: Normal nares present Eyes: General: appearance normal, both eyes and all related structures Neck: Neck: no JVD Resp: Auscultation: clear to auscultation bilaterally Cardio: Rate: regular rate Rhythm: regular rhythm GI: Inspection: non-distended GI Palp: Yes Soft to palpation Skin: General skin exam: normal color Neuro: General: gait normal Speech: normal speech Extrem: General: normal to inspection Psych: Mental Status: mental status grossly normal Assessment and Plan Assessment and plan (1) Cirrhosis: Qualifiers: Hepatic cirrhosis type: unspecified hepatic cirrhosis Ascites presence: unspecified Qualified Code(s): K74.60 - Unspecified cirrhosis of liver Code(s): K74.60 - Unspecified cirrhosis of liver Status: Acute Assessment and Plan: egd (2) Esophageal varices determined by endoscopy: Code(s): I85.00 - Esophageal varices without bleeding Status: Acute
[2024-08-25 11:22] VITALS: BP 89/50; PULSE 61; RESP 13; O2SAT 97
[2024-08-25 11:32] VITALS: BP 97/71; PULSE 64; RESP 18; O2SAT 99
[2024-08-25 11:42] VITALS: BP 152/75; PULSE 58; RESP 18; O2SAT 99
== END 2024-08-25 12:07 | disposition home or self-care (01) ==
PROVIDERS: PCP Nurse Practitioner Adult Health; Visit Provider Internal Medicine Gastroenterology
PROC: 0DJ08ZZ Inspection of Upper Intestinal Tract, Via Natural or Artificial Opening Endoscopic (ICD-10-PCS; CPT 43235; principal; 2024-08-25 11:30)
DX: K74.60 Unspecified cirrhosis of liver (principal)
CPT/HCPCS: 43235; J2003; J2704; J7120

== ENCOUNTER 2024-09-29 07:22 | Emergency (ER) | payer OTHER, SELFPAY ==
--- NOTE | ~2024-09-29 | XR_ITS ---
Portable chest x-ray Comparison: 04/27/2024 Clinical History: Pain Findings: Lungs are clear, without focal consolidation or pleural effusion. Cardiomediastinal silho uette is stable. Bones and soft tissues are unremarkable. Impression: Normal chest. Reviewed, dictated and finalized at location . Impression: Normal chest.
--- OUTSIDE RECORDS SUMMARY | 2024-09-29 07:27 | XMS_ITS | Clinical Summary ---
Author Organization [facility] Chaneladele Loyd Address [facility] [place] [address] Care Team Providers Care Child And Family Services Worker Name Role Phone Ac Mauro DO Primary Care Provider Sue vailable Allergies No known active allergies Medications ondansetron (ZOFRAN ODT) 4 mg Tablet, Rapid Dissolve DIS 1 T ON THE TONGUE Q 8 H PRF NAUSEA OR VOM 02/29/2020 Active meclizine (ANTIVERT) 25 mg tablet TK 1 T PO TID 03/02/2020 Active multivitamin (DAILY-ABYB) tablet Take 1 Tablet by mouth daily. Active omega-3 fatty acids-fish oil 300-1,000 mg Capsule Take by mouth daily. Active magnesium oxide 250 mg magnesium Tablet Take by mouth. Active Active Problems Problem Noted Date Diagnosed Date Cirrhosis of liver without ascites 04/06/2020 History of hepatitis C 04/06/2020 Pancytopenia 04/06/2020 Lymphadenopathy, abdominal 04/06/2020 Family History Medical History Relation Name Comments Heart Disease Brother 1 Cancer Brother 4 Heart Disease Father Cancer Mother Heart Disease Sister 3 Relation Name Status Comments Brother 1 Brother 2 Alive Brother 3 Alive Brother 4 Daughter Alive Father Mother Sister 1 Alive Sister 2 Alive Sister 3 Alive Son Alive Social History Tobacco Use Types Packs/Day Years Used Date Smoking Tobacco: Former Cigarettes 1 25 0 03/09/1980 - 03/09/2005 Smokeless Tobacco: Never Alcohol Use Standard Drinks/Week Comments Yes 0 (1 standard drink = 0.6 oz pur e alcohol) OCCASSIONLLY Sex and Gender Information Value Date Recorded Sex Assigned at Not on file Legal Sex Male 10:24 AM CDT Gender Identity Not on file Sexual Orientation Not on file Last Filed Vital Signs Vital Sign Reading Time Taken Comments Blood Pressure 138/78 04/06/2020 11:48 AM CDT Pulse 66 04/06/2020 11:48 AM CDT Temperature 36.8 C (98.3 F) 04/06/2020 11:48 AM CDT Respiratory Rate - - Oxygen Saturation 96% 04/06/2020 11:48 AM CDT Inhaled Oxygen Concentration - - Weight 78.2 kg (172 lb 4.8 oz) 04/06/2020 11:48 AM CDT Height 172.7 cm (5' 8 ) 04/06/2020 11:48 AM CDT Body Mass Index 26.2 04/06/2020 11:48 AM CDT Plan of Treatment Health Maintenance Due Date Last Done Comments DTAP/TDAP/TD VACCINES (1 - Tdap) 01/20/1971 COLORECTAL SCREENING 01/20/1997 Colorectal Cancer Screening 01/20/1997 FIT-DNA Q 3 years 01/20/1997 FIT/FOBT Q 1 year 01/20/1997 Flex Sig/CT Colonography Q 5 years 01/20/1997 PNEUMOCOCCAL VACCINE 50+ YEARS (1 of 1 - PCV) 01/21/20 02 ZOSTER VACCINE (1 of 2) 01/20/2002 INFLUENZA VACCINE (#1) 2024 RSV VACCINE (60+ or ) (1 - 1-dose 75+ series) 01/20/2027 Care Teams Child And Family Services Worker Relationship Specialty Start Date End Date Shawn Shen DO NO ADDRESS ON FILE PCP - General Family Practice 02/23/20
--- OUTSIDE RECORDS SUMMARY | 2024-09-29 07:27 | XMS_ITS | Continuity of Care Document ---
Author Organization [facility] Address [address] [place] [address] Phone Care Team Providers Care Geriatric Social Work Professor Name Role Phone Deidre Padron MD Unavailable Unavailable Allergies, Adverse Reactions, Alerts Substance Reaction Status Criticality morphine Other Active No Information morphine Other Active No Information BACTERIAL VACCINES, MIXED Anaphylaxis Active No Information Advance Directives Directive Yes / No Effective Date File Name No Information Encounters Encounter Description Practice Location Reason(s) For Visit Diagnoses Date Provider Providers Copied on Encounter [email or web address], [address], [place], [place], [address] , tel: [phone] [facility] No Information 1 Nereida Jiang. [address] [place] [address], [place], [place], [address], [place]. tel:[phone] [id number], [address], [place], [place], [address] , tel: [phone] [facility] FLATUL/ERUCTAT/GAS PAINPURE HYPERCHOLESTEROLEMC ONSTIPATION NOSROUTINE MEDICAL EXAMBPH W/O URINARY OBS/LUTS 3200 7 Nereida Jiang. [facility], [place] [address], [place], [place], [address], [place]. tel:[phone] [facility], [address], [place], [place], [address] , tel: [phone] [facility] ALLERGIC RHINITIS NOS 0-200 3 Cornelius Starr. [address], [place] [address], [place], [place], [address], [place]. tel:[phone] [facility], [address], [place], [place], [address] , tel: [phone] [facility] FAM HX-CARDIOVAS DIS NECHYPERTROPHY OF PROSTATEMALAISE AND FATIGUE NEC 0200 3 Nereida Jiang. [address], [address], [place], [place], [address], [place]. tel:[phone] [id number], [address], [place], [place], [address] , tel: [phone] [facility] CARDIAC DYSRHYTHMIA NOS 6200 2 Kolton Salinas. [address] [facility], [place], [place], [address]. tel:[phone] Family History Family Member Type Diagnosis Age At Onset Family h/o Problem (finding) OTHER CARDIOVASCULAR DI SEASES Payers Payer name Insurance type Covered constitution party ID Authoriza tion(s) No Information Social History [...]
[2024-09-29 07:39] VITALS: BP 158/85; PULSE 68; RESP 14; TEMP 36.8; O2SAT 98
--- NOTE | 2024-09-29 07:43 | ECG_ITS ---
Test Date: 2024-09-29 07:27:56 Measurements Intervals [place] Rate: 59 P: 46 [place]: 143 QRS: -56 QRSD: 94 T: 4 QT: 420 QTc: 418 Interpretive Statements SINUS BRADYCARDIA LOW QRS VOLTAGE IN PRECORDIAL LEADS [QRS DEFLECTION < 1.0 mV IN CHEST LEADS] LEFT ANTERIOR FASCICULAR BLOCK [QRS AXIS <= -45, QR IN I, RS IN II] NONSPECIFIC ST AND T WAVE ABNORMALITY Compared to ECG 06/07/2024 08:49:04 NO SIGNIFICANT CHANGES Electronically Signed On 09-29-2024 13:41:15 CDT by Beryl Grady M.D.
[2024-09-29] MEDS: ASPIRIN 81 MG CHEWABLE TABLET 324 MG PO (07:54)
[2024-09-29 07:55] LABS: Basophils Percent Auto 0.5 % (0.2-1.2); Eosinophils Absolute Auto 0.3 K/mm3 (0-0.3); Eosinophils Percent Auto 6.3 % (0-4.4); Hematocrit 43.4 % (42.0-52.0); Hemoglobin 14.8 g/dL (14.0-18.0); Immature Granulocyte Absolute 0.01 K/mm3 (0.00-0.031); Immature Granulocyte Percent A 0.2 % (0-0.5); Immature Platelet Fraction Pct 7.9 % (0.9-11.2); Lymphocytes Absolute Auto 1.27 K/mm3 (0.9-3.2); Lymphocytes Percent Auto 29.5 % (18.3-44.2); Mean Corpuscular HGB Conc 34.1 g/dl (32-36); Mean Corpuscular Volume 93.9 fl (80-100); Mean Platelet Volume 11.2 fl (7.4-10.4); Monocytes Absolute Auto 0.5 K/mm3 (0.1-0.6); Monocytes Percent Auto 10.7 % (2.6-8.5); Neutrophils Absolute Auto 2.3 K/mm3 (1.3-6.7); Neutrophils Percent Auto 52.8 % (45.5-73.1); Platelet Count Result 117 k/mm3 (150-375); Red Blood Count 4.62 M/mm3 (4.6-6.20); Red Cell Distribution Width 12.4 % (11.5-14.5); White Blood Count 4.3 K/mm3 (4.5-10.0)
[2024-09-29 08:00] VITALS: BP 152/76; PULSE 59; RESP 16; O2SAT 97
[2024-09-29 08:04] LABS: Alanine Aminotransferase 18 U/L (6-50); Albumin Level 4.6 g/dL (3.5-5.1); Alkaline Phosphatase 82 U/L (38-126); Anion Gap 10 mmol/L (4-12); Aspartate Amino Transferase 26 U/L (17-59); Blood Urea Nitrogen 16 mg/dL (9-20); Calcium 9.5 mg/dL (8.4-10.2); Carbon Dioxide 26 mmol/L (22-30); Chloride 106 mmol/L (98-107); Estimated CRCL calculation 48 ml/min; Estimated Glomerular Filt Rate > 60; Glucose 97 mg/dL (65-110); Lipase 97 U/L (23-300); Potassium 4.2 mmol/L (3.4-5.0); Sodium 142 mmol/L (137-145)
[2024-09-29 08:15] VITALS: BP 155/80; PULSE 59; RESP 20; O2SAT 96
--- OUTSIDE RECORDS SUMMARY | 2024-09-29 08:15 | XMS_ITS | Clinical Summary ---
Author Organization [facility] Chaneladeel Loyd Address [facility] [place] [address] Care Team Providers Care Desk Maker Name Role Phone Ac Mauro DO Primary Care Provider Sue vailable Allergies No known active allergies Medications ondansetron (ZOFRAN ODT) 4 mg Tablet, Rapid Dissolve DIS 1 T ON THE TONGUE Q 8 H PRF NAUSEA OR VOM 02/29/2020 Active meclizine (ANTIVERT) 25 mg tablet TK 1 T PO TID 03/02/2020 Active multivitamin (DAILY-ABBY) tablet Take 1 Tablet by mouth daily. [...] - 1-dose 75+ series) 01/20/2027 Care Teams Desk Maker Relationship Specialty Start Date End Date Shawn Shen DO NO ADDRESS ON FILE PCP - General Family Practice 02/23/20
--- OUTSIDE RECORDS SUMMARY | 2024-09-29 08:15 | XMS_ITS | Continuity of Care Document ---
Author Organization [facility] Address [address] [place] [address] Phone Care Team Providers Care Curriculum And Assessment Coordinator Name Role Phone Deidre Padron MD Unavailable Unavailable Allergies, Adverse Reactions, Alerts Substance Reaction Status Criticality morphine Other Active No Information morphine Other Active No Information BACTERIAL VACCINES, MIXED Anaphylaxis Active No Information Advance Directives Directive Yes / No Effective Date File Name No Information Encounters Encounter Description Practice Location Reason(s) For Visit Diagnoses Date Provider Providers Copied on Encounter [facility], [address], [place], [place], [address] , tel: [phone] [facility] No Information 1 Nereida Jiang. [address] [place] [address], [place], [place], [address], [place]. [phone] [facility], [address], [place], [place], [address] , tel: [phone] [facility] FLATUL/ERUCTAT/GAS PAINPURE HYPERCHOLESTEROLEMC ONSTIPATION NOSROUTINE MEDICAL EXAMBPH W/O URINARY OBS/LUTS 3200 7 Nereida Jiang. [facility], [place] [address], [place], [place], [address], [place]. tel:[phone] [facility], [address], [place], [place], [address] , tel: [phone] [facility] ALLERGIC RHINITIS NOS 0-200 3 Cornelius Starr. [address], [place] [address], [place], [place], [address], [place]. tel:[phone] [facility], [address], [place], [place], [address] , tel: [phone] [facility] FAM HX-CARDIOVAS DIS NECHYPERTROPHY OF PROSTATEMALAISE AND FATIGUE NEC 0200 3 Nereida Jiang. [address], [address], [place], [place], [address], [place]. tel:[phone] [facility], [address], [place], [place], [address] , tel: [phone] [facility] CARDIAC DYSRHYTHMIA NOS 6200 2 Kolton Salinas. [address] [facility], [place], [place], [address]. tel:[phone] Family History Family Member Type Diagnosis Age [...]
[2024-09-29 08:17] LABS: Troponin I < 0.012 ng/mL (0.000-0.034)
[2024-09-29 08:22] LABS: INR 1.1; Prothrombin Time 14.6 Seconds (11.1-14.7)
--- NOTE | 2024-09-29 08:32 | ED.GENADULT ---
HPI - General Adult General Chief complaint: Chest Pain Stated complaint: chest pain Time Seen by Provider: 09/29/24 07:56 History of Present Illness HPI narrative: This is a 74-year-old male presenting to the ED for chest pain. He had chest pain yesterday starting at 5:00 a.m.. It lasted till 7:00 p.m. and then resolved on its own. He described it is an aching burning pain in the left side of his chest that radiated to his left arm. It was not associated with exertion diaphoresis or vomiting. He was not associated with fevers or chills, productive cough body aches or lower extremity edema. He spoke to his primary care physician today and they instructed him to come to the ED to be evaluated. Related Data Home Medications ?Medication ?Instructions ?Recorded ?Confirmed ?Last Taken ?Type biotin 5,000 mcg sublingual tablet 5,000 mcg sublingual DAILY 05/03/22 08/25/24 08/24/24 History omega-3 fatty acids 500 mg capsule 500 mg PO DAILY 05/03/22 08/25/24 08/24/24 History vitamin B complex (B 1 tablet PO DAILY 05/03/22 08/25/24 08/24/24 History Complex-Vitamin B12 tablet) vitamin E (dl, acetate) 180 mg 180 mg PO DAILY 05/03/22 08/25/24 08/24/24 History (400 unit) capsule propranolol 20 mg tablet 10 mg PO DAILY 09/09/24 Unknown History Allergies Allergy/AdvReac Type Severity Reaction Status Date / Time fexofenadine (From Yazmin) AdvReac Severe Blurry Verified 09/29/24 08:25 Vision PMFSH Past Medical History Medical History Cervical myelopathy Hypertension Hx of rheumatic fever Esophageal varices determined by endoscopy Constipation Adenomatous colon polyp Colon cancer screening Cirrhosis asymptomatic Hep C -treated Former smoker Hepatitis C treated - resolved Surgical History Surgical History History of nasal surgery Patient reports surgical intervention due to sustained epistaxis, performed at [facility]. History of surgery on left wrist With hardware. Family History Family History Father Patient's father is , Onset Age: 44 Acute myocardial infarction, Onset Age: 44 COD Sibling Patient's brother is Lung cancer Social History Social History Social History: Surrogate decision maker: Theresa Rodríguez, daughter. Code status: Full code. Smoking packs per day: 1 Smoking cigarettes per day: 20.0 Years smoked: 35 Smoking pack-years: 35.00 Smoking status: Never smoker Tobacco type: cigarettes Smoking end date: 07/21/04 Alcohol intake: never Alcohol use details: occasional wine, whiskey Substance use: never Substance use type: does not use Do You Feel Safe in your Home?: Yes Lack of Transportation: No Lack of Food: Never True Current Housing: I Have Housing Concerned About Future Housing: No Difficulty Paying Gas/Electric Bills: No Difficulty Paying for Meds: No Currently Unemployed: No Education: High School Diploma/GED Difficulty w/ Childcare or Family Care: No Living arrangements: alone Additional living arrangements comments: The patient lives in his own home in [place] with his CT. 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 Gender identity (if verbalized by the patient): Male Spiritual care concerns: No Exam Narrative: APPEARANCE: No apparent distress. Head: atraumatic. EYES: EOMI, NOSE: Atraumatic NECK: Trachea midline RESPIRATORY: No increased rate of breathing clear to auscultation CARDIOVASCULAR: RRR, no peripheral edema ABDOMINAL: Non-distended soft nontender MUSCULOSKELETAl: No obvious deformities NEURO: Alert. Moving 4/4 extremities SKIN:: Warm, dry. Normal color PSYCHIATRIC: Normal affect Course Vital Signs Vital signs: Vital Signs Temperature 98.2 F 09/29/24 07:39 Pulse Rate 68 09/29/24 07:39 Respiratory Rate 14 09/29/24 07:39 Blood Pressure 158/85 H 09/29/24 07:39 Pulse Oximetry 98 09/29/24 07:39 Temperature 98.2 F 09/29/24 07:39 Pulse Rate 58 L 09/29/24 11:55 Respiratory Rate 16 09/29/24 11:55 Blood Pressure 163/73 H 09/29/24 11:55 Pulse Oximetry 99 09/29/24 11:55 Medical Decision Making MDM Narrative Medical decision making narrative: -Course: 74-year-old male presenting 1 day after a an episode of chest pain. He is chest pain-free in the emergency department and has been for over 12 hours. His workup here including laboratory studies, troponin x2, EKG, and chest x-ray were unremarkable. Results were discussed with patient. We discussed admission versus discharge and he is comfortable following up closely with a pouncing lathe operator on an outpatient basis. Heart score less than 4. Patient will be discharged with return precautions. -DDX includes but is not limited to: ACS, pneumonia, aortic dissection, pneumothorax, esophageal rupture PE, pleurisy -Co-morbidities complicating care: Hypertension Vital Signs Vital Signs: Vital Signs Temperature 98.2 F 09/29/24 07:39 Pulse Rate 68 09/29/24 07:39 Respiratory Rate 14 09/29/24 07:39 Blood Pressure 158/85 H 09/29/24 07:39 Pulse Oximetry 98 09/29/24 07:39 Temperature 98.2 F 09/29/24 07:39 Pulse Rate 58 L 09/29/24 11:55 Respiratory Rate 16 09/29/24 11:55 Blood Pressure 163/73 H 09/29/24 11:55 Pulse Oximetry 99 09/29/24 11:55 Lab Data 09/29/24 07:48 09/29/24 07:48 Labs: Lab Results 09/29/24 09/29/24 Range/Units 07:48 11:08 WBC 4.3 L (4.5-10.0) K/mm3 RBC 4.62 (4.6-6.20) M/mm3 Hgb 14.8 (14.0-18.0) g/dL Hct 43.4 (42.0-52.0) % MCV 93.9 (80-100) fl MCH 32.0 (26-34) pg MCHC 34.1 (32-36) g/dl RDW 12.4 (11.5-14.5) % Plt Count 117 L (150-375) k/mm3 MPV 11.2 H (7.4-10.4) fl Immature Gran % (Auto) 0.2 (0-0.5) % Neut % (Auto) 52.8 (45.5-73.1) % Lymph % (Auto) 29.5 (18.3-44.2) % Parmer % (Auto) 10.7 H (2.6-8.5) % Eos % (Auto) 6.3 H (0-4.4) % Baso % (Auto) 0.5 (0.2-1.2) % Lymph # (Auto) 1.27 (0.9-3.2) K/mm3 Parmer # (Auto) 0.5 (0.1-0.6) K/mm3 Eos # (Auto) 0.3 (0-0.3) K/mm3 Baso # (Auto) 0.0 (0.0-0.1) K/mm3 Abs Immat Gran (auto) 0.01 (0.00-0.031) K/mm3 Absolute Neuts (auto) 2.3 (1.3-6.7) K/mm3 Absolute Nucleated RBC 0.000 (0.0-0.012) K/mm3 Nucleated RBC % 0.0 (0.0-0.2) % % Immature Plt Fraction 7.9 (0.9-11.2) % PT 14.6 (11.1-14.7) Seconds INR 1.1 APTT 30.0 (22.3-36.8) Seconds Sodium 142 (137-145) mmol/L Potassium 4.2 (3.4-5.0) mmol/L Chloride 106 (98-107) mmol/L Carbon Dioxide 26 (22-30) mmol/L Anion Gap 10 (4-12) mmol/L BUN 16 (9-20) mg/dL Creatinine 1.15 (0.7-1.3) mg/dL Estim Creat Clear Calc 48 ml/min Estimated GFR > 60 (59 - ) Glucose 97 (65-110) mg/dL Calcium 9.5 (8.4-10.2) mg/dL Total Bilirubin 1.0 (0.2-1.3) mg/dL AST 26 (17-59) U/L ALT 18 (6-50) U/L Alkaline Phosphatase 82 (38-126) U/L Troponin I < 0.012 < 0.012 (0.000-0.034) ng/mL Total Protein 8.0 (6.3-8.2) g/dL Albumin 4.6 (3.5-5.1) g/dL Lipase 97 (23-300) U/L Discharge Plan Discharge Clinical Impression: Atypical chest pain Patient Disposition: Home, Self-Care Condition: Stable Instructions: Antibiotic Form, Chest Pain (ED) Additional Instructions: You were seen in the emergency department for chest pain. Your workup here was reassuring. Please follow-up with the pouncing lathe operator listed below for further workup. He can return any time if you develop chest pain or any new or worsening symptoms. Patient Language: Polish Prescriptions: No Action sennosides [Senna Lax] 8.6 mg tablet 8.6 mg PO BID PRN (Reason: constipation) Qty: 60 2RF vitamin B complex [B Complex-Vitamin B12] Tablet 1 tablet PO DAILY omega-3 fatty acids 500 mg Capsule 500 mg PO DAILY vitamin E (dl, acetate) 180 mg (400 unit) Capsule 180 mg PO DAILY biotin 5,000 mcg Tablet, Sublingual 5,000 mcg SUBLINGUAL DAILY gabapentin 300 mg capsule 300 mg PO BID Qty: 180 1RF propranolol 20 mg tablet 10 mg PO DAILY losartan 50 mg tablet 50 mg PO DAILY Qty: 90 0RF omeprazole 20 mg capsule,delayed release(DR/EC) 20 mg PO DAILY Qty: 90 0RF Follow-up/Referrals: Beryl Grady MD [Physician] - 3 Days (Chest pain) Glory Tello APRN [Primary Care Provider] - Quality HEART score for chest pain patients History: slightly suspicious ECG: normal Age: > or = to 65 years Risk factors: 1 or 2 risk factors Troponin: < or = to 1x normal limit Heart score: 3
--- NOTE | 2024-09-29 11:01 | ECG_ITS ---
Test Date: 2024-09-29 11:04:34 Measurements Intervals Cutler Rate: 53 P: 35 WY: 144 QRS: -46 QRSD: 90 T: 3 QT: 431 QTc: 405 Interpretive Statements SINUS BRADYCARDIA LOW QRS VOLTAGE IN PRECORDIAL LEADS [QRS DEFLECTION < 1.0 mV IN CHEST LEADS] POSSIBLE RIGHT VENTRICULAR CONDUCTION DELAY [RSR (QR) IN V1/V2] LEFT ANTERIOR FASCICULAR BLOCK [QRS AXIS <= -45, QR IN I, RS IN II] NON SPECIFIC ST AND T WAVE ABNORMALITY Compared to ECG 09/29/2024 07:27:56 NO SIGNIFICANT CHANGES Electronically Signed On 09-29-2024 13:52:15 CDT by Beryl Grady M.D.
[2024-09-29 11:40] LABS: Troponin I < 0.012 ng/mL (0.000-0.034)
[2024-09-29 11:55] VITALS: BP 163/73; PULSE 58; RESP 16; O2SAT 99
[2024-09-29 13:06] VITALS: BP 165/72; PULSE 67; RESP 20; O2SAT 99
== END 2024-09-29 13:09 | disposition home or self-care (01) ==
PROVIDERS: Emergency Provider Emergency Medicine; PCP Nurse Practitioner Adult Health
DX: R07.89 Other chest pain (principal); I10 Essential (primary) hypertension; K74.60 Unspecified cirrhosis of liver; Z86.19 Personal history of other infectious and parasitic diseases; Z86.0101 Personal history of adenomatous and serrated colon polyps; Z87.891 Personal history of nicotine dependence; Z79.899 Other long term (current) drug therapy; R00.1 Bradycardia, unspecified; R94.31 Abnormal electrocardiogram [ECG] [EKG]; I44.4 Left anterior fascicular block
CPT/HCPCS: 36415; 71045; 80053; 83690; 84484; 85025; 85055; 85610; 85730; 93005; 99284; A9270

== ENCOUNTER 2024-10-18 11:19 | Outpatient (CLI) | payer OTHER, SELFPAY ==
--- NOTE | ~2024-10-18 | US_ITS ---
US abdomen limited INDICATION: Cirrhosis PROCEDURE: Realtime right upper abdominal ultrasound. COMPARISON: No prior studies for comparison. FINDINGS: The pancreas is normal without focal mass or pancreatic ductal dilation. Liver echotexture is somewhat heterogeneous, although no discrete mass identified. Liver surface is nodular, compatibl e cirrhosis. There is normal directional flow in the portal vein. There are gallstones. Common bile duct measures 4 mm. No sonographic Hill's sign. There is a righ t renal cyst measuring 6.3 cm. IMPRESSION: 1: Cirrhosis. 2: Right renal cyst measuring 6.3 cm. Reviewed, dictated and finalized at location A.
[2024-10-18 12:18] LABS: Hematocrit 46.3 % (42.0-52.0); Hemoglobin 15.5 g/dL (14.0-18.0); Mean Corpuscular HGB Conc 33.5 g/dl (32-36); Mean Corpuscular Hemoglobin 31.8 pg (26-34); Mean Corpuscular Volume 95.1 fl (80-100); Mean Platelet Volume 11.6 fl (7.4-10.4); Platelet Count Result 161 k/mm3 (150-375); Red Blood Count 4.87 M/mm3 (4.6-6.20); Red Cell Distribution Width 12.3 % (11.5-14.5); White Blood Count 5.5 K/mm3 (4.5-10.0)
[2024-10-18 12:32] LABS: Alanine Aminotransferase 18 U/L (6-50); Albumin Level 4.7 g/dL (3.5-5.1); Alkaline Phosphatase 72 U/L (38-126); Anion Gap 11 mmol/L (4-12); Aspartate Amino Transferase 26 U/L (17-59); Bilirubin,Total 0.8 mg/dL (0.2-1.3); Blood Urea Nitrogen 23 mg/dL (9-20); Calcium 9.6 mg/dL (8.4-10.2); Carbon Dioxide 28 mmol/L (22-30); Chloride 103 mmol/L (98-107); Estimated Glomerular Filt Rate 58; Glucose 89 mg/dL (65-110); Potassium 4.3 mmol/L (3.4-5.0); Sodium 142 mmol/L (137-145)
[2024-10-18 12:34] LABS: INR 1.1; Prothrombin Time 14.2 Seconds (11.1-14.7)
--- OUTSIDE RECORDS SUMMARY | 2024-10-18 12:42 | XMS_ITS | Clinical Summary ---
Author Organization [facility] Chaneladeel Loyd Address [place] [address] Care Team Providers Care Delivery Stock Clerk Name Role Phone Ac Mauro DO Primary [...] - 1-dose 75+ series) 01/20/2027 Care Teams Delivery Stock Clerk Relationship Specialty Start Date End Date Shawn Shen DO NO ADDRESS ON FILE PCP - General Family Practice 02/23/20
--- OUTSIDE RECORDS SUMMARY | 2024-10-18 12:42 | XMS_ITS | Continuity of Care Document ---
Author Organization [facility] Address [address] [place] [address] Phone Care Team Providers Care General Practitioner Name Role Phone Deidre Padron MD Unavailable Unavailable Allergies, Adverse Reactions, Alerts Substance Reaction Status Criticality morphine Other Active No Information morphine Other Active No Information BACTERIAL VACCINES, MIXED Anaphylaxis Active No Information Advance Directives Directive Yes / No Effective Date File Name No Information Encounters Encounter Description Practice Location Reason(s) For Visit Diagnoses Date Provider Providers Copied on Encounter [facility], [address], [place], [place], [id number] , tel: [phone] [facility] No Information 1 Nereida Jiang. [address] [place] [address], [place], [place], [address], [place]. tel:[phone] [facility], [address], [place], [place], [address] , tel: [phone] [facility] FLATUL/ERUCTAT/GAS PAINPURE HYPERCHOLESTEROLEMC ONSTIPATION NOSROUTINE MEDICAL EXAMBPH W/O URINARY OBS/LUTS 3200 7 Nereida Jiang. [facility], [place] [address], [place], [place], [address], [place]. tel:[phone] [facility], [address], [place], [place], [address] , tel: [phone] [facility] ALLERGIC RHINITIS NOS 0-200 3 Cornelius Starr. [address], [place] [address], [place], [place], [address], [place]. tel:[phone] [facility] [place], [address], [place], [place], [address] , tel: [phone] [facility] FAM HX-CARDIOVAS DIS NECHYPERTROPHY OF PROSTATEMALAISE AND FATIGUE NEC 0200 3 Nereida Jiang. [address], [address], [place], [place], [address], [place]. tel:[phone] [facility], [address], [place], [place], [address] , tel: [phone] [facility] CARDIAC DYSRHYTHMIA NOS 6200 2 Kolton Salinas. [address] [facility], [place], [place], [address]. tel:[phone] Family History Family Member Type Diagnosis Age At Onset Family h/o Problem (finding) OTHER CARDIOVASCULAR DI SEASES Payers Payer name Insurance type Covered libertarian ID Authoriza tion(s) No Information Social History [...]
--- OUTSIDE RECORDS SUMMARY | 2024-10-18 12:55 | XMS_ITS | Continuity of Care Document ---
Author Organization [facility] Address [address] [place] [address] Phone Care Team Providers Care Manager English Name Role Phone Deidre Padron MD Unavailable Unavailable Allergies, Adverse Reactions, Alerts Substance Reaction Status Criticality morphine Other Active No Information morphine Other Active No Information BACTERIAL VACCINES, MIXED Anaphylaxis Active No Information Advance Directives Directive Yes / No Effective Date File Name No Information Encounters Encounter Description Practice Location Reason(s) For Visit Diagnoses Date Provider Providers Copied on Encounter [email or web address], [address], [place], [place], [address] , tel: [phone] [facility] No Information 1 Nereida Jiang. [address] [place] [address], [place], [place], [address], [place]. tel:[phone] [email or web address], [address], [place], [place], [address] , tel: [phone] [facility] FLATUL/ERUCTAT/GAS PAINPURE HYPERCHOLESTEROLEMC ONSTIPATION NOSROUTINE MEDICAL EXAMBPH W/O URINARY OBS/LUTS 3200 7 Nereida Jiang. [facility], [place] [address], [place], [place], [address], [place]. tel:[phone] [email or web address], [address], [place], [place], [address] , tel: [phone] [facility] ALLERGIC RHINITIS NOS 0-200 3 Cornelius Starr. [address], [place] [address], [place], [place], [address], [place]. tel:[phone] [facility], [address], [place], [place], [address] , tel: [phone] [facility] FAM HX-CARDIOVAS DIS NECHYPERTROPHY OF PROSTATEMALAISE AND FATIGUE NEC 0200 3 Nereida Jiang. [address], [address], [place], [place], [address], [place]. tel:[phone] [email or web address], [address], [place], [place], [address] , tel: [phone] [facility] CARDIAC DYSRHYTHMIA NOS 6200 2 Kolton Salinas. [address] [facility], [place], [place], [address]. tel:[phone] Family History Family Member Type Diagnosis Age At Onset Family h/o Problem (finding) OTHER CARDIOVASCULAR DI SEASES Payers Payer name Insurance type Covered republican ID Authoriza tion(s) No Information Social History [...]
== END 2024-10-18 11:20 | disposition home or self-care (01) ==
PROVIDERS: PCP Nurse Practitioner Adult Health; Visit Provider Nurse Practitioner Family
DX: K74.60 Unspecified cirrhosis of liver (principal); K76.0 Fatty (change of) liver, not elsewhere classified; N28.1 Cyst of kidney, acquired
CPT/HCPCS: 36415; 76705; 80053; 85027; 85610

== ENCOUNTER 2025-01-19 14:06 | Emergency (ER) | payer OTHER, SELFPAY ==
[2025-01-19 14:10] VITALS: BP 156/76; PULSE 75; RESP 18; TEMP 36.6; O2SAT 100
--- OUTSIDE RECORDS SUMMARY | 2025-01-19 14:10 | XMS_ITS | Clinical Summary ---
Author Organization [facility] Chaneladeel Loyd Address [facility] [place] [address] Care Team Providers Care Ui Lead Developer Name Role Phone Ac Mauro DO Primary [...] 11:48 AM CDT Height 172.7 cm (5' 8) 04/06/2020 11:48 AM CDT Body Mass Index [...] (1 of 2) 01/20/2002 INFLUENZA VACCINE (#1) 2025 RSV VACCINE (60+ or ) (1 - 1-dose 75+ series) 01/20/2027 Care Teams Ui Lead Developer Relationship Specialty Start Date End Date Shawn Shen DO NO ADDRESS ON FILE PCP - General Family Practice 02/23/20
--- NOTE | 2025-01-19 14:23 | ED_ITS ---
HPI - Skin/Abscess/Foreign Bdy General Chief complaint: Skin/Abscess/Foreign Body Stated complaint: right eye/stung by hornet Time Seen by Provider: 01/19/25 14:17 Source: patient Mode of arrival: ambulatory Limitations: no limitations History of Present Illness HPI narrative: Patient presents today after he was stung in the right upper eyelid yesterday afternoon by a hornet. This has caused significant swelling to the upper and lower eyelid, swelling the eye closed. He has tried ice but no other [id number] interventions. Denies pain or vision changes. Related Data Home Medications ?Medication ?Instructions ?Recorded ?Confirmed ?Last Taken ?Type biotin 5,000 mcg sublingual tablet 5,000 mcg sublingual DAILY 05/03/22 11/01/24 08/24/24 History omega-3 fatty acids 500 mg capsule 500 mg PO DAILY 05/03/22 11/01/24 08/24/24 History vitamin B complex (B 1 tablet PO DAILY 05/03/22 11/01/24 08/24/24 History Complex-Vitamin B12 tablet) vitamin E (dl, acetate) 180 mg 180 mg PO DAILY 05/03/22 11/01/24 08/24/24 History (400 unit) capsule propranolol 20 mg tablet 10 mg PO DAILY 09/09/24 11/01/24 Unknown History Allergies Allergy/AdvReac Type Severity Reaction Status Date / Time fexofenadine (From Yazmin) AdvReac Severe Blurry Verified 01/19/25 14:15 Vision PMFSH Past Medical History Medical History Cervical myelopathy Hypertension Hx of rheumatic fever Esophageal varices determined by endoscopy Constipation Adenomatous colon polyp Colon cancer screening Cirrhosis asymptomatic Hep C -treated Former smoker Hepatitis C treated - resolved Surgical History Surgical History History of nasal surgery Patient reports surgical intervention due to sustained epistaxis, performed at [facility]. History of surgery on left wrist With hardware. Family History Family History Father Patient's father is , Onset Age: 44 Acute myocardial infarction, Onset Age: 44 COD Sibling Patient's brother is Lung cancer Social History Social History Social History: Surrogate decision maker: Theresa Rodríguez, daughter. Code status: Full code. Smoking packs per day: 1 Smoking cigarettes per day: 20.0 Years smoked: 35 Smoking pack-years: 35.00 Smoking status: Never smoker Tobacco type: cigarettes Smoking end date: 07/21/04 Alcohol intake: never Alcohol use details: occasional wine, whiskey Substance use: never Substance use type: does not use Do You Feel Safe in your Home?: Yes Lack of Transportation: No Lack of Food: Never True Current Housing: I Have Housing Concerned About Future Housing: No Difficulty Paying Gas/Electric Bills: No Difficulty Paying for Meds: No Currently Unemployed: No Education: High School Diploma/GED Difficulty w/ Childcare or Family Care: No Living arrangements: alone Additional living arrangements comments: The patient lives in his own home in [place] with his CT. 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 Gender identity (if verbalized by the patient): Male Spiritual care concerns: No Comments At time of signature, I have reviewed and agree with nursing past medical, surgical, social and family history unless otherwise noted. Please see nursing chart for further information. There is no relevant family history pertinent to the presenting complaint Exam Narrative: GENERAL: Well-appearing, well-nourished, and in no acute distress. HEAD: Normocephalic, atraumatic. EYES: EOMI. PERRL. No redness or drainage. Conjunctivae normal. Moderate edema and mild erythema to the right upper and lower eyelid that extends laterally to the mormonism area. Lashes normal. No drainage. ENT: Mucous membranes pink and moist. NECK: Normal AROM. CHEST: No respiratory distress. EXTREMITIES: Normal range of motion. No edema. SKIN: Warm, dry, no rash. Capillary refill normal. Normal skin turgor. NEURO: No focal deficits. Alert and oriented x3. Gait steady. PSYCH: Normal affect. No signs of depression or anxiety. Course Course Level of Care: Express Care Visit Vital Signs Vital signs: Vital Signs Temperature 97.8 F 01/19/25 14:10 Pulse Rate 75 01/19/25 14:10 Respiratory Rate 18 01/19/25 14:10 Blood Pressure 156/76 H 01/19/25 14:10 Pulse Oximetry 100 01/19/25 14:10 Oxygen Delivery Room Air 01/19/25 14:10 Temperature 97.8 F 01/19/25 14:10 Pulse Rate 75 01/19/25 14:10 Respiratory Rate 18 01/19/25 14:10 Blood Pressure 156/76 H 01/19/25 14:10 Pulse Oximetry 100 01/19/25 14:10 Oxygen Delivery Room Air 01/19/25 14:10 Reviewed MDM - Skin/Abscess/Foreign Bdy MDM Narrative Medical decision making narrative: Pleasant 74-year-old man with a hornet sting to the right upper eyelid with moderate surrounding allergic reaction and edema. No signs of bacterial infection present. Patient was given an injection of dexamethasone to start helping with the edema in a prescription for 3 more days of prednisone to start tomorrow if needed. Patient has an allergy to Yazmin that makes him feel woozy. Will avoid other antihistamines as he cannot remember trying any others. He will try some Tylenol or ibuprofen, but at this time denies any pain only minor itching. He has no difficulty with his vision when ice manually opened. Vital signs stable. He is candidate for outpatient treatment with no indications for transfer at this time. Anticipatory guidance given. Differential Diagnosis Differential diagnosis: Likely cellulitis, insect bites, impetigo, contact dermatitis and other (Allergic reaction to insect sting) Critical Care Time Critical Care Time Critical Care Time: No Discharge Plan Discharge Clinical Impression: Allergic reaction to insect sting Patient Disposition: Home Condition: Stable Additional Instructions: You received your first dose of steroids here at [facility]. Start the oral prednisone tomorrow and take as directed. You may also want to take Tylenol or ibuprofen for discomfort. Follow-up with your PCP with any additional concerns. Your blood pressure was elevated above 120/80 today at Urgent Care. This puts you above the threshold for follow up. Please schedule a followup visit with your personal physician as soon as possible, for further evaluation and treatment. Even blood pressure exceeding 120/80 may indicate pre-hypertension. Patient Language: Kosovan Prescriptions: New prednisone 20 mg tablet 40 mg PO DAILY 3 Days Qty: 6 0RF No Action vitamin B complex [B Complex-Vitamin B12] Tablet 1 tablet PO DAILY omega-3 fatty acids 500 mg Capsule 500 mg PO DAILY vitamin E (dl, acetate) 180 mg (400 unit) Capsule 180 mg PO DAILY biotin 5,000 mcg Tablet, Sublingual 5,000 mcg SUBLINGUAL DAILY propranolol 20 mg tablet 10 mg PO DAILY omeprazole 20 mg capsule,delayed release(DR/EC) 20 mg PO DAILY Qty: 90 0RF sennosides [Senna Lax] 8.6 mg tablet 8.6 mg PO BID PRN (Reason: constipation) Qty: 60 2RF gabapentin 300 mg capsule 300 mg PO BID Qty: 180 1RF losartan 50 mg tablet See Rx Instructions .ROUTE .COMPLEX Qty: 90 3RF Dose Instruction: TAKE 1 TABLET BY MOUTH DAILY Rx Instructions: TAKE 1 TABLET BY MOUTH DAILY Follow-up/Referrals: Glory Tello APRN [Primary Care Provider] - Time of Disposition: 14:34
[2025-01-19] MEDS: dexAMETHasone SOD PHOS INJ 10 MG/ML 1 ML VIAL IM (14:27)
== END 2025-01-19 14:47 | disposition home or self-care (01) ==
PROVIDERS: Emergency Provider Nurse Practitioner; PCP Nurse Practitioner Adult Health
DX: T63.451A Toxic effect of venom of hornets, accidental (unintentional), initial encounter (principal); Z87.891 Personal history of nicotine dependence; I10 Essential (primary) hypertension; K74.60 Unspecified cirrhosis of liver; Z86.19 Personal history of other infectious and parasitic diseases; G95.9 Disease of spinal cord, unspecified
CPT/HCPCS: 96372; 99213; G0463; J1100

== ENCOUNTER 2025-02-07 11:11 | Emergency (ER) | payer OTHER, SELFPAY ==
--- OUTSIDE RECORDS SUMMARY | 2025-02-07 11:13 | XMS_ITS | Clinical Summary ---
Author Organization [facility] Chaneladeel Loyd Address [facility] [place] [address] Care Team Providers Care Filling Machine Operator Name Role Phone Ac Mauro DO Primary [...] - 1-dose 75+ series) 01/20/2027 Care Teams Filling Machine Operator Relationship Specialty Start Date End Date Shawn Shen DO NO ADDRESS ON FILE PCP - General Family Practice 02/23/20
[2025-02-07 11:18] VITALS: BP 133/72; PULSE 68; RESP 14; TEMP 36.6; O2SAT 98
--- NOTE | 2025-02-07 11:51 | ED.URI ---
HPI - URI/Sore Throat General Chief Complaint: Upper Respiratory Infection Stated Complaint: cough Time Seen by Provider: 02/07/25 11:58 Source: patient, RN notes reviewed and old records reviewed Mode of arrival: ambulatory Limitations: no limitations History of Present Illness HPI Narrative: 75-year-old male presents to the [facility] with complaints of 5 day history of productive cough. History of COPD. No treatment prior to arrival. Denies fevers, chest pain. Related Data Home Medications ?Medication ?Instructions ?Recorded ?Confirmed ?Last Taken ?Type biotin 5,000 mcg sublingual tablet 5,000 mcg sublingual DAILY 05/03/22 11/01/24 08/24/24 History omega-3 fatty acids 500 mg capsule 500 mg PO DAILY 05/03/22 11/01/24 08/24/24 History vitamin B complex (B 1 tablet PO DAILY 05/03/22 11/01/24 08/24/24 History Complex-Vitamin B12 tablet) vitamin E (dl, acetate) 180 mg 180 mg PO DAILY 05/03/22 11/01/24 08/24/24 History (400 unit) capsule propranolol 20 mg tablet 10 mg PO DAILY 09/09/24 11/01/24 Unknown History Allergies Allergy/AdvReac Type Severity Reaction Status Date / Time bee venom protein (honey Allergy Mild Swelling Verified 01/25/25 07:42 bee) (bees) fexofenadine (From Yazmin) AdvReac Severe Blurry Verified 01/25/25 07:42 Vision Review of Systems Review of Systems: All systems reviewed & are unremarkable except as noted in HPI and below Constitutional: Constitutional: Reports no additional constitutional complaints ENT: Reports system reviewed and no additional complaints, except as documented Cardiovascular: Cardiovascular: Reports no additional cardiovascular complaints, Denies chest pain and Denies dyspnea Respiratory: Respiratory: Reports as per HPI, Reports chest congestion, Reports cough, Denies hemoptysis and Denies dyspnea Musculoskeletal: Musculoskeletal: Reports no additional musculoskeletal complaints Integumentary/Breasts: Skin/Breast: Reports system reviewed and no additional complaints, except as docu PMFSH Past Medical History Medical History Cervical myelopathy Hypertension Hx of rheumatic fever Esophageal varices determined by endoscopy Constipation Adenomatous colon polyp Colon cancer screening Cirrhosis asymptomatic Hep C -treated Former smoker Hepatitis C treated - resolved Surgical History Surgical History History of nasal surgery Patient reports surgical intervention due to sustained epistaxis, performed at [place]. History of surgery on left wrist With hardware. Family History Family History Father Patient's father is , Onset Age: 44 Acute myocardial infarction, Onset Age: 44 COD Sibling Patient's brother is Lung cancer Social History Social History Social History: Surrogate decision maker: Theresa Rodríguez, daughter. Code status: Full code. Smoking packs per day: 1 Smoking cigarettes per day: 20.0 Years smoked: 35 Smoking pack-years: 35.00 Smoking status: Never smoker Tobacco type: cigarettes Smoking end date: 07/21/04 Alcohol intake: never Alcohol use details: occasional wine, whiskey Substance use: never Substance use type: does not use Do You Feel Safe in your Home?: Yes Lack of Transportation: No Lack of Food: Never True Current Housing: I Have Housing Concerned About Future Housing: No Difficulty Paying Gas/Electric Bills: No Difficulty Paying for Meds: No Currently Unemployed: No Education: High School Diploma/GED Difficulty w/ Childcare or Family Care: No Living arrangements: alone Additional living arrangements comments: The patient lives in his own home in [place] with his CT. 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 Gender identity (if verbalized by the patient): Male Spiritual care concerns: No Comments At the time of my signature, I reviewed and agree with the nursing past medical, surgical, social, and family history. There is no relevant family history pertinent to the patient complaint. Exam Const: General: cooperative, healthy appearing, comfortable, no acute distress, well developed, alert and well nourished Nutritional Appearance: well nourished Orientation/consciousness: patient oriented x3 Limitations: no limitations HENMT: Head: normal to inspection Eyes: General: appearance normal, both eyes and all related structures Alignment and Position: alignment normal Neck: Neck: normal visual inspection, full ROM, no lymphadenopathy and no meningeal signs Chest: Chest palpation & inspection: normal inspection of the chest Resp: Effort & Inspection: normal respiratory effort and able to speak in complete sentences Auscultation: clear to auscultation bilaterally, no crackles, no rales, no rhonchi, no wheezes and diminished lung sounds bilateral in the lower lung [place] Cardio: Rate: regular rate Skin: General skin exam: normal color and no rashes or lesions noted Neuro: General: patient oriented x3, gait normal, moves all extremities and no meningeal signs Cognition (Neuro): normal cognition Speech: normal speech Gait exam (Neuro): Normal gait present Extrem: General: normal to inspection, full ROM, capillary refill normal and normal gait Psych: Appearance: grossly normal and well kempt Mental Status: mental status grossly normal Speech and movement: Normal speech and movement present and Clear speech present Affect: normal affect Attitude: cooperative Course Course Level of Care: Express Care Visit Vital Signs Vital signs: Vital Signs Temperature 97.8 F 02/07/25 11:18 Pulse Rate 68 02/07/25 11:18 Respiratory Rate 14 02/07/25 11:18 Blood Pressure 133/72 02/07/25 11:18 Pulse Oximetry 98 02/07/25 11:18 Oxygen Delivery Room Air 02/07/25 11:18 Temperature 97.8 F 02/07/25 11:18 Pulse Rate 68 02/07/25 11:18 Respiratory Rate 14 02/07/25 11:18 Blood Pressure 133/72 02/07/25 11:18 Pulse Oximetry 98 02/07/25 11:18 Oxygen Delivery Room Air 02/07/25 11:18 Reviewed MDM - URI/Sore Throat MDM Narrative Medical decision making narrative: Patient sitting in exam room. Patient is nontoxic, vitals stable. Patient presents with a productive cough x5 days. Denies any other symptoms. No treatment prior to arrival Patient is a previous smoker. Bronchitis in the past. Will treat with doxycycline. Patient appropriate for outpatient treatment with close follow-up Discharge instructions reviewed with patient, as well as provided in writing per nursing staff. The instructions also include specific and strict return/GO TO THE ER as well as f/u information. All questions have been answered, and the patient deny any further questions with discharge and discharge plan. Some parts of this dictation were generated by voice recognition software and may contain typographical and/or grammatical inaccuracies. Differential Diagnosis Differential diagnosis: Likely upper respiratory infection, otitis media, sinusitis, viral infection and bronchitis Critical Care Time Critical Care Time Critical Care Time: No Discharge Plan Discharge Clinical Impression: Bronchitis Patient Disposition: Home Condition: Stable Instructions: Antibiotic Form, Acute Bronchitis (ED) Additional Instructions: It is very important to treat your symptoms. Drink plenty of water, Gatorade, Pedialyte, ice pops or Jell-O. -Alternate Tylenol and Motrin per package directions for fever or pain. You can alternate every 4 hours -doing daily nasal irrigations can help relieve pressure your sinuses. Things like a Neti pot -Use Flonase twice a day for 5 days then daily to help reduce the inflammation and dry up your sinuses. -You can also use Mucinex. Be sure to drink plenty of water with this medication at least 8 ounces with every dose and it is important to drink 8 to 10 glasses of water per day. Water is a natural decongestant -Frequent hand washing or hand policy writer sales is one of the best ways to prevent spread of infection. -Using a vaporizer or humidifier at night will also help thin secretions and help with coughing up phlegm. -Follow up with primary care provider in 7-10 days if condition is not improving - For new or worsening symptoms go directly to the nearest ER Patient Language: Jamaican Prescriptions: New doxycycline monohydrate 100 mg tablet 100 mg PO BID Qty: 14 0RF methylprednisolone [Medrol (Panchito)] 4 mg tablets,dose pack See Rx Instructions PO .COMPLEX Qty: 21 0RF Rx Instructions: orally per package directions No Action vitamin B complex [B Complex-Vitamin B12] Tablet 1 tablet PO DAILY omega-3 fatty acids 500 mg Capsule 500 mg PO DAILY vitamin E (dl, acetate) 180 mg (400 unit) Capsule 180 mg PO DAILY biotin 5,000 mcg Tablet, Sublingual 5,000 mcg SUBLINGUAL DAILY propranolol 20 mg tablet 10 mg PO DAILY sennosides [Senna Lax] 8.6 mg tablet 8.6 mg PO BID PRN (Reason: constipation) Qty: 60 2RF losartan 50 mg tablet See Rx Instructions .ROUTE .COMPLEX Qty: 90 3RF Dose Instruction: TAKE 1 TABLET BY MOUTH DAILY Rx Instructions: TAKE 1 TABLET BY MOUTH DAILY epinephrine [EpiPen 2-Panchito] 0.3 mg/0.3 mL auto-injector 0.3 mg IM ONCE PRN (Reason: anaphylaxis) Qty: 2 0RF Rx Instructions: as a single dose; may repeat once omeprazole 20 mg capsule,delayed release(DR/EC) See Rx Instructions .ROUTE .COMPLEX Qty: 90 3RF Dose Instruction: TAKE 1 CAPSULE BY MOUTH DAILY Rx Instructions: TAKE 1 CAPSULE BY MOUTH DAILY gabapentin 300 mg capsule 300 mg PO BID Qty: 180 1RF Follow-up/Referrals: Glory Tello APRN [Primary Care Provider] - 2 Weeks ([facility] ) Stand Alone Forms: Work/School Release IP Time of Disposition: 12:11
== END 2025-02-07 12:16 | disposition home or self-care (01) ==
PROVIDERS: Emergency Provider Nurse Practitioner; PCP Nurse Practitioner Adult Health
DX: J40 Bronchitis, not specified as acute or chronic (principal); I10 Essential (primary) hypertension; K74.60 Unspecified cirrhosis of liver; J44.9 Chronic obstructive pulmonary disease, unspecified; Z87.891 Personal history of nicotine dependence; Z86.19 Personal history of other infectious and parasitic diseases
CPT/HCPCS: 99213; G0463

== ENCOUNTER 2025-03-22 14:47 | Emergency (ER) | payer OTHER, SELFPAY ==
--- OUTSIDE RECORDS SUMMARY | 2010-07-27 19:00 | XMS_ITS | Continuity of Care Document ---
Author Organization [facility] Address [address] [place] [address] Phone Care Team Providers Care Editor Dictionary Name Role Phone Deidre Padron MD Unavailable Unavailable Allergies, Adverse Reactions, Alerts Substance Reaction Status Criticality morphine Other Active No Information morphine Other Active No Information BACTERIAL VACCINES, MIXED Anaphylaxis Active No Information Advance Directives Directive Yes / No Effective Date File Name No Information Encounters Encounter Description Practice Location Reason(s) For Visit Diagnoses Date Provider Providers Copied on Encounter [facility], [address], [place], [place], [address] , tel: [phone] [facility] No Information 1 Nereida Jiang. [address] [address], [place], [place], [id number], [place]. tel:[phone] [facility], [address], [place], [place], [address] , tel: [phone] [facility] FLATUL/ERUCTAT/GAS PAINPURE HYPERCHOLESTEROLEMC ONSTIPATION NOSROUTINE MEDICAL EXAMBPH W/O URINARY OBS/LUTS 3200 7 Nereida Jiang. [address], [facility] [address], [place], [place], [address], [place]. tel:[phone] [facility], [address], [place], [place], [address] , [place] tel: [phone] [facility] ALLERGIC RHINITIS NOS 0-200 3 Cornelius Starr. [address], [place], [id number], [place]. tel:[phone] [facility], [address], [place], [place], [address] , tel: [phone] [facility] FAM HX-CARDIOVAS DIS NECHYPERTROPHY OF PROSTATEMALAISE AND FATIGUE NEC 0-200 3 Nereida Jiang. [address], [address], [place], [place], [id number], [place]. tel:[phone] [facility], [address], [place], [place], [address] , tel: [phone] [facility] CARDIAC DYSRHYTHMIA NOS 6200 2 Kolton Rita. [address] [facility], [place], [place], [address]. tel:[phone] Family History Family Member Type Diagnosis Age At Onset Family h/o Problem (finding) OTHER CARDIOVASCULAR DI SEASES Payers Payer name Insurance type Covered democrat ID Authoriza tion(s) No Information Social History Type Description Quantity Date Captured Comments Sex Male Smoking Status No Information Chief Complaint And Reason For Visit No Information Reason For Referral Reason For Referral No Information History Of Present Illness Encounter Date Complaint History Of Prese nt Illness No Information Functional Status Date Functional Assessmen t No Information Instructions Date Instruction Additional Infor mation No Information Assessments Type Assessment Date No Information Patient Care Teams Name Effective Dates (start - stop) Status Members No Information
[2025-03-22] VITALS (19 sets, daily range): BP systolic 137–157; BP diastolic 59–86; PULSE 58–82; RESP 13–23; TEMP 36.3–36.6; O2SAT 97–100
--- NOTE | ~2025-03-22 | US_ITS ---
EXAMINATION:US venous doppler LE BI INDICATION:Lower extremity edema TECHNIQUE: Multiple grayscale, color flow and Doppler images of the right and left lower extremity deep venous systems were obtained and reviewed. COMPARISON:No prior studies for comparison. FINDINGS: The common femoral, superficial femoral and popliteal veins demonstrate normal respiratory variation, augmentation and compressibility. Color flow is also seen within the posterior tibial, peroneal, greater saphenous and profunda veins. IMPRESSION: 1: No lower extremity deep venous thrombosis. Reviewed, dictated and finalized at location O.
--- NOTE | ~2025-03-22 | XR_ITS ---
EXAMINATION: XR chest 1V portable 03/22/2025 18:38 INDICATION: Lower extremity edema PROCEDURE: AP portable chest COMPARISON: Comparison to multiple prior studies sequentially, with oldest reviewed study dated 01/16/2020. FINDINGS: The lungs are clear. The cardiomediastinal silhouette is within normal limits. There are no pleural effusions. There is no pneumothorax suspected. Moderate degenerative changes of the acromioclavicular joints. Old healed right distal clavicular fracture. IMPRESSION: 1: NO ACUTE CARDIOPULMONARY DISEASE. Reviewed, dictated and finalized at location O.
--- OUTSIDE RECORDS SUMMARY | 2025-03-22 14:58 | XMS_ITS | Clinical Summary ---
Author Organization [facility] Chaneladeel Loyd Address [facility] [place] [address] Care Team Providers Care Fence Gate Assembler Name Role Phone Ac Mauro DO Primary [...] - 1-dose 75+ series) 01/20/2027 Care Teams Fence Gate Assembler Relationship Specialty Start Date End Date Shawn Shen DO NO ADDRESS ON FILE PCP - General Family Practice 02/23/20
--- NOTE | 2025-03-22 19:12 | PC.NURSE ---
BSSR received from KATHARINE Gamez at this time. Pt resting in bed with call light within reach.
[2025-03-22 19:17] LABS: Hematocrit 44.1 % (42.0-52.0); Hemoglobin 14.5 g/dL (14.0-18.0); Immature Granulocyte Percent A 0.3 % (0-0.5); Lymphocytes Absolute Auto 1.67 K/mm3 (0.9-3.2); Mean Corpuscular HGB Conc 32.9 g/dl (32-36); Mean Corpuscular Hemoglobin 31.1 pg (26-34); Mean Corpuscular Volume 94.6 fl (80-100); Nucleated Red Blood Cells Absolute Auto 0.000 K/mm3 (0.0-0.012); Nucleated Red Blood Cells Perc 0.0 % (0.0-0.2); Platelet Count Result 161 k/mm3 (150-375); Red Blood Count 4.66 M/mm3 (4.6-6.20); White Blood Count 6.9 K/mm3 (4.5-10.0)
--- NOTE | 2025-03-22 19:19 | ED.GENADULT ---
HPI - General Adult General Chief complaint: Extremity Injury, Lower Stated complaint: BLE swelling Time Seen by Provider: 03/22/25 17:18 History of Present Illness HPI narrative: This is a 75-year-old male presenting ED for lower extremity edema. Patient called his primary care physician office to schedule an appointment and instructed him to go straight to the emergency department. Patient says that he has been having edema of his lower extremities over last couple days. It is not associated with chest pain difficulty breathing or orthopnea. He has no history of congestive heart failure. The edema has improved since he arrived in the emergency department has been sitting in the bed. He has never worn compression stockings before. No history of DVT PE or risk factors for those things. Related Data Home Medications ?Medication ?Instructions ?Recorded ?Confirmed ?Last Taken ?Type biotin 5,000 mcg sublingual tablet 5,000 mcg sublingual DAILY 05/03/22 02/17/25 08/24/24 History omega-3 fatty acids 500 mg capsule 500 mg PO DAILY 05/03/22 02/17/25 08/24/24 History vitamin B complex (B 1 tablet PO DAILY 05/03/22 02/17/25 08/24/24 History Complex-Vitamin B12 tablet) vitamin E (dl, acetate) 180 mg 180 mg PO DAILY 05/03/22 02/17/25 08/24/24 History (400 unit) capsule propranolol 20 mg tablet 10 mg PO DAILY 09/09/24 02/17/25 Unknown History Allergies Allergy/AdvReac Type Severity Reaction Status Date / Time bee venom protein (honey Allergy Mild Swelling Verified 02/17/25 09:28 bee) (bees) fexofenadine (From Yazmin) AdvReac Severe Blurry Verified 02/17/25 09:28 Vision PMFSH Past Medical History Medical History (Updated 03/22/25 @ 19:24 by Zack Kirby MD) Abdominal pain Cervical myelopathy Hypertension Hx of rheumatic fever Esophageal varices determined by endoscopy Constipation Adenomatous colon polyp Colon cancer screening Cirrhosis asymptomatic Hep C -treated Former smoker Hepatitis C treated - resolved Surgical History Surgical History History of nasal surgery Patient reports surgical intervention due to sustained epistaxis, performed at [place]. History of surgery on left wrist With hardware. Family History Family History Father Patient's father is , Onset Age: 44 Acute myocardial infarction, Onset Age: 44 COD Sibling Patient's brother is Lung cancer Social History Social History Social History: Surrogate decision maker: Theresa Rodríguez, daughter. Code status: Full code. Smoking packs per day: 1 Smoking cigarettes per day: 20.0 Years smoked: 35 Smoking pack-years: 35.00 Smoking status: Never smoker Tobacco type: cigarettes Smoking end date: 07/21/04 Alcohol intake: never Alcohol use details: occasional wine, whiskey Substance use: never Substance use type: does not use Do You Feel Safe in your Home?: Yes Lack of Transportation: No Lack of Food: Never True Current Housing: I Have Housing Concerned About Future Housing: No Difficulty Paying Gas/Electric Bills: No Difficulty Paying for Meds: No Currently Unemployed: No Education: High School Diploma/GED Difficulty w/ Childcare or Family Care: No Living arrangements: alone Additional living arrangements comments: The patient lives in his own home in [place] with his CT. 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 Gender identity (if verbalized by the patient): Male Spiritual care concerns: No Exam Narrative: APPEARANCE: No apparent distress. Head: atraumatic. EYES: EOMI, NOSE: Atraumatic NECK: Trachea midline RESPIRATORY: No increased rate of breathing clear to auscultation CARDIOVASCULAR: RRR, very mild +1 edema of the lower extremities ABDOMINAL: Non-distended soft nontender MUSCULOSKELETAl: No obvious deformities NEURO: Alert. Moving 4/4 extremities SKIN:: Warm, dry. Normal color PSYCHIATRIC: Normal affect Course Vital Signs Vital signs: Vital Signs Temperature 97.8 F 03/22/25 14:49 Pulse Rate 74 03/22/25 14:49 Respiratory Rate 16 03/22/25 14:49 Blood Pressure 148/78 H 03/22/25 14:49 Pulse Oximetry 98 03/22/25 14:49 Oxygen Delivery Room Air 03/22/25 14:49 Temperature 97.3 F L 03/22/25 14:50 Pulse Rate 65 03/22/25 19:00 Respiratory Rate 23 H 03/22/25 19:00 Blood Pressure 148/70 H 03/22/25 19:00 Pulse Oximetry 100 03/22/25 19:00 Oxygen Delivery Room Air 03/22/25 14:49 Medical Decision Making [facility] Narrative Medical decision making narrative: -Course: 72-year-old male presenting extremity edema. No other associated symptoms. DVT scan negative. Chest x-ray without evidence of CHF. Labs normal. Edema likely dependent edema. He is instructed to wear compression stockings and follow up with primary care physician. Given return precautions for difficulty breathing or chest pain. -DDX includes but is not limited to: Dependent edema, DVT, CHF kidney failure Vital Signs Vital Signs: Vital Signs Temperature 97.8 F 03/22/25 14:49 Pulse Rate 74 03/22/25 14:49 Respiratory Rate 16 03/22/25 14:49 Blood Pressure 148/78 H 03/22/25 14:49 Pulse Oximetry 98 03/22/25 14:49 Oxygen Delivery Room Air 03/22/25 14:49 Temperature 97.3 F L 03/22/25 14:50 Pulse Rate 65 03/22/25 19:00 Respiratory Rate 23 H 03/22/25 19:00 Blood Pressure 148/70 H 03/22/25 19:00 Pulse Oximetry 100 03/22/25 19:00 Oxygen Delivery Room Air 03/22/25 14:49 Lab Data 03/22/25 19:07 03/22/25 19:07 Labs: Lab Results 03/22/25 Range/Units 19:07 WBC 6.9 (4.5-10.0) K/mm3 RBC 4.66 (4.6-6.20) M/mm3 Hgb 14.5 (14.0-18.0) g/dL Hct 44.1 (42.0-52.0) % MCV 94.6 (80-100) fl MCH 31.1 (26-34) pg MCHC 32.9 (32-36) g/dl RDW 12.4 (11.5-14.5) % Plt Count 161 (150-375) k/mm3 MPV 11.1 H (7.4-10.4) fl Immature Gran % (Auto) 0.3 (0-0.5) % Neut % (Auto) 60.4 (45.5-73.1) % Lymph % (Auto) 24.4 (18.3-44.2) % [place] % (Auto) 8.8 H (2.6-8.5) % Eos % (Auto) 5.8 H (0-4.4) % Baso % (Auto) 0.3 (0.2-1.2) % Lymph # (Auto) 1.67 (0.9-3.2) K/mm3 [place] # (Auto) 0.6 (0.1-0.6) K/mm3 Eos # (Auto) 0.4 H (0-0.3) K/mm3 Baso # (Auto) 0.0 (0.0-0.1) K/mm3 Abs Immat Gran (auto) 0.02 (0.00-0.031) K/mm3 Absolute Neuts (auto) 4.1 (1.3-6.7) K/mm3 Absolute Nucleated RBC 0.000 (0.0-0.012) K/mm3 Nucleated RBC % 0.0 (0.0-0.2) % Sodium 139 (137-145) mmol/L Potassium 4.4 (3.4-5.0) mmol/L Chloride 102 (98-107) mmol/L Carbon Dioxide 30 (22-30) mmol/L Anion Gap 7 (4-12) mmol/L BUN 18 (9-20) mg/dL Creatinine 1.15 (0.7-1.3) mg/dL Estim Creat Clear Calc Not Reportable Estimated GFR > 60 (59 - ) Glucose 95 (65-110) mg/dL Calcium 9.5 (8.4-10.2) mg/dL Total Bilirubin 0.9 (0.2-1.3) mg/dL AST 27 (17-59) U/L ALT 16 (6-50) U/L Alkaline Phosphatase 76 (38-126) U/L NT-Pro-B Natriuret Pep Pending Total Protein 7.8 (6.3-8.2) g/dL Albumin 4.6 (3.5-5.1) g/dL Discharge Plan Discharge Clinical Impression: Dependent edema Patient Disposition: Home Condition: Stable Instructions: Antibiotic Form, Edema (ED) Additional Instructions: You were seen in the emergency department for lower extremity edema. Please 5 compression stockings at [facility] and wear them throughout day. Please elevate your legs at night. Please follow-up with your primary care physician for further management. Patient Language: Nauruan Prescriptions: No Action vitamin B complex [B Complex-Vitamin B12] Tablet 1 tablet PO DAILY omega-3 fatty acids 500 mg Capsule 500 mg PO DAILY vitamin E (dl, acetate) 180 mg (400 unit) Capsule 180 mg PO DAILY biotin 5,000 mcg Tablet, Sublingual 5,000 mcg SUBLINGUAL DAILY propranolol 20 mg tablet 10 mg PO DAILY sennosides [Senna Lax] 8.6 mg tablet 8.6 mg PO BID PRN (Reason: constipation) Qty: 60 2RF losartan 50 mg tablet See Rx Instructions .ROUTE .COMPLEX Qty: 90 3RF Dose Instruction: TAKE 1 TABLET BY MOUTH DAILY Rx Instructions: TAKE 1 TABLET BY MOUTH DAILY epinephrine [EpiPen 2-Panchito] 0.3 mg/0.3 mL auto-injector 0.3 mg IM ONCE PRN (Reason: anaphylaxis) Qty: 2 0RF Rx Instructions: as a single dose; may repeat once omeprazole 20 mg capsule,delayed release(DR/EC) See Rx Instructions .ROUTE .COMPLEX Qty: 90 3RF Dose Instruction: TAKE 1 CAPSULE BY MOUTH DAILY Rx Instructions: TAKE 1 CAPSULE BY MOUTH DAILY gabapentin 300 mg capsule 300 mg PO BID Qty: 180 1RF Follow-up/Referrals: Glory Tello APRN [Primary Care Provider, Family Practice] - 2 Days Referral Note: peripheral edema
[2025-03-22 19:28] LABS: Alanine Aminotransferase 16 U/L (6-50); Albumin Level 4.6 g/dL (3.5-5.1); Alkaline Phosphatase 76 U/L (38-126); Anion Gap 7 mmol/L (4-12); Aspartate Amino Transferase 27 U/L (17-59); Bilirubin,Total 0.9 mg/dL (0.2-1.3); Blood Urea Nitrogen 18 mg/dL (9-20); Calcium 9.5 mg/dL (8.4-10.2); Carbon Dioxide 30 mmol/L (22-30); Chloride 102 mmol/L (98-107); Estimated Glomerular Filt Rate > 60; Glucose 95 mg/dL (65-110); Potassium 4.4 mmol/L (3.4-5.0); Sodium 139 mmol/L (137-145); Total Protein 7.8 g/dL (6.3-8.2)
[2025-03-22 19:45] LABS: NT Pro B Type Natriuretic Pept 30 pg/mL (19.9-100)
== END 2025-03-22 19:44 | disposition home or self-care (01) ==
PROVIDERS: Emergency Provider Emergency Medicine; PCP Nurse Practitioner Adult Health
DX: R60.9 Edema, unspecified (principal); I10 Essential (primary) hypertension; Z86.19 Personal history of other infectious and parasitic diseases; Z87.891 Personal history of nicotine dependence
CPT/HCPCS: 36415; 71045; 80053; 83880; 85025; 93970; 99284

== ENCOUNTER 2025-05-02 09:25 | Outpatient (CLI) | payer OTHER, SELFPAY ==
--- NOTE | ~2025-05-02 | US_ITS ---
EXAMINATION: US abdomen limited DATE: 05/02/2025 10:59 INDICATION: Unspecified cirrhosis of liver. TECHNIQUE: Multiple grayscale and Doppler ultrasound images of the abdomen were obtained. COMPARISON: Ultrasound 10/18/2024 FINDINGS: The visualized portions of the head, body, and tail of the pancreas are normal. The liver demonstrates coarsened echotexture and surface nodularity, consistent with cirrhosis. There is normal flow in main portal vein. The gallbladder is normal in size and contains gallstones. No gallbladder wall thickening or sonographic Hill sign. The common duct is normal and measures 4 mm. There are cysts in right kidney measuring up to 6.2 cm. IMPRESSION: 1. Cirrhosis of the liver. 2. Cholelithiasis. No evidence of acute cholecystitis. Reviewed, dictated and finalized at location E.
--- OUTSIDE RECORDS SUMMARY | 2025-05-02 09:57 | XMS_ITS | Clinical Summary ---
Author Organization [facility] Chaneladeel Loyd Address [facility] [place] [address] Care Team Providers Care Branch Store Manager Name Role Phone Ac Mauro DO Primary [...] - 1-dose 75+ series) 01/20/2027 Care Teams Branch Store Manager Relationship Specialty Start Date End Date Shawn Shen DO NO ADDRESS ON FILE PCP - General Family Practice 02/23/20
[2025-05-02 12:15] LABS: Hematocrit 44.0 % (42.0-52.0); Hemoglobin 15.0 g/dL (14.0-18.0); Mean Corpuscular HGB Conc 34.1 g/dl (32-36); Mean Corpuscular Hemoglobin 31.8 pg (26-34); Mean Corpuscular Volume 93.4 fl (80-100); Platelet Count Result 151 k/mm3 (150-375); Red Blood Count 4.71 M/mm3 (4.6-6.20); White Blood Count 5.7 K/mm3 (4.5-10.0)
[2025-05-02 12:36] LABS: INR 1.1; Prothrombin Time 13.8 Seconds (11.1-14.7)
[2025-05-02 12:42] LABS: Alanine Aminotransferase 15 U/L (6-50); Albumin Level 4.5 g/dL (3.5-5.1); Alkaline Phosphatase 81 U/L (38-126); Anion Gap 6 mmol/L (4-12); Aspartate Amino Transferase 29 U/L (17-59); Bilirubin,Total 1.0 mg/dL (0.2-1.3); Blood Urea Nitrogen 20 mg/dL (9-20); Calcium 9.6 mg/dL (8.4-10.2); Carbon Dioxide 31 mmol/L (22-30); Chloride 104 mmol/L (98-107); Estimated Glomerular Filt Rate 56; Glucose 90 mg/dL (65-110); Potassium 4.9 mmol/L (3.4-5.0); Sodium 141 mmol/L (137-145); Total Protein 7.6 g/dL (6.3-8.2)
== END 2025-05-02 09:26 | disposition home or self-care (01) ==
PROVIDERS: PCP Nurse Practitioner Adult Health; Visit Provider Nurse Practitioner Family
DX: R79.89 Other specified abnormal findings of blood chemistry (principal); D69.6 Thrombocytopenia, unspecified; Z86.19 Personal history of other infectious and parasitic diseases; K74.69 Other cirrhosis of liver; K80.20 Calculus of gallbladder without cholecystitis without obstruction
CPT/HCPCS: 36415; 76705; 80053; 82105; 85027; 85610

== ENCOUNTER 2025-05-11 07:32 | Outpatient (CLI) | payer OTHER, SELFPAY ==
--- NOTE | 2025-05-11 07:37 | ECHO_ITS ---
Patient Info Name: Job Das Age: 75 years : 1950 Gender: Male Ht: 68 in Wt: 181 lbs BSA: 2.00 m2 HR: 54 bpm BP: 161 / 81 mmHg Heart Rhythm: Sinus Rhythm Technical Quality: Fair Exam Date: 05/11/2025 7:47 AM Patient Status: O Admit Date: 05/11/2025 Exam Type: CA echo doppler color flow Complete two-dimensional, color flow and Doppler transthoracic echocardiogram is performed. Ekg Manager: Leigh Padilla Attending Provider: Glory Tello Summary 1. Complete two-dimensional, color flow and Doppler transthoracic echocardiogram is performed. 2. Left ventricular chamber dimension is mildly enlarged. 3. Left ventricular systolic function is normal, estimated at 60-65. 4. The left ventricular diastolic function is grade I diastolic dysfunction. 5. E/e' 7 is not elevated. 6. Left atrial chamber dimension is mildly enlarged. 7. Right atrial chamber dimension is mildly enlarged. 8. There is mild aortic valve sclerosis. 9. There is trace aortic valve regurgitation. 10. There is trace mitral valve regurgitation. 11. There is mild tricuspid valve regurgitation. 12. No pulmonary hypertension, estimated pulmonary arterial systolic pressure is 29 mmHg. Left Ventricle E/e' 7 is not elevated. Left ventricular chamber dimension is mildly enlarged. Left ventricular systolic function is normal, estimated at 60-65. The left ventricular diastolic function is grade I diastolic dysfunction. Right Ventricle Right ventricular chamber dimension is normal. Right ventricular systolic function is normal. Left Atria Left atrial chamber dimension is mildly enlarged. Right Atria Right atrial chamber dimension is mildly enlarged. Aortic Valve The aortic valve is trileaflet. There is mild aortic valve sclerosis. There is no aortic valve stenosis. There is trace aortic valve regurgitation. Pulmonic Valve There is no pulmonic regurgitation. Mitral Valve There is no mitral valve stenosis. There is trace mitral valve regurgitation. Tricuspid Valve There is mild tricuspid valve regurgitation. No pulmonary hypertension, estimated pulmonary arterial systolic pressure is 29 mmHg. Pericardium/Pleural There is no pericardial effusion. Inferior Vena Cava Normal inferior vena cava with >50% collapse upon inspiration consistent with normal right atrial pressure, 5 mmHg. Aorta The aortic root size at the sinus of Valsalva is normal. Left Ventricular Outflow Tract Name Value Normal LVOT 2D LVOT Diameter 2.0 cm LVOT Doppler LVOT Peak Velocity 90 cm/s LVOT Peak Gradient 3 mmHg LVOT Mean Gradient 2 mmHg LVOT VTI 20 cm LVOT VTI/AV VTI Ratio 0.6 LVOT Stroke Volume 62 ml LVOT CO 3.7 l/min LVOT CI 1.9 l/min/m2 Pulmonic Valve Name Value Normal RVOT Doppler RVOT Peak Velocity 69 cm/s RVOT Peak Gradient 2 mmHg PV Doppler PV Peak Velocity 88 cm/s PV Peak Gradient 3 mmHg Mitral Valve Name Value Normal MV Diastolic Function MV E Peak Velocity 76 cm/s MV A Peak Velocity 85 cm/s MV E/A 0.9 MV Decel Time (PW) 163 ms MV Annular TDI MV E/e' (Septal) 7.8 MV E/e' (Lateral) 6.4 MV E/e' (Average) 7.1 Tricuspid Valve Name Value Normal TV Regurgitation Doppler TR Peak Velocity 244 cm/s TR Peak Gradient 16 mmHg Estimated PAP/RSVP RA Pressure 5 mmHg <=5 PA Systolic Pressure 29 mmHg <36 RV Systolic Pressure 29 mmHg <36 TV Annular TDI TV Lateral Shannan s' Velocity 11.9 cm/s >=9.5 Aorta Name Value Normal Ascending Aorta Ao Root Diameter (MM) 3.4 cm Ao Root Diam Index (MM) 1.7 cm/m2 Aortic Valve Name Value Normal AV Doppler AV Peak Velocity 141 cm/s AV Peak Gradient 8 mmHg AV Mean Gradient 4 mmHg AV VTI 30 cm AV Area (Cont Eq VTI) 2.0 cm2 >=3.0 AV Area (Cont Eq Govind) 2.0 cm2 AV DI (Govind) 0.64 AV Regurgitation 2D LVOT Area 3.2 cm2 Ventricles Name Value Normal LV Dimensions 2D/MM IVS Diastolic Thickness (2D) 0.9 cm 0.6-1.0 LVID Diastole (2D) 5.6 cm 4.2-5.8 LVIW Diastolic Thickness (2D) 0.9 cm 0.6-1.0 LVID Systole (2D) 3.9 cm 2.5-4.0 LVOT Diameter 2.0 cm LV Mass (2D Cubed) 186.47 g 88.00-224.00 LV Mass Index (2D Cubed) 93 g/m2 49-115 Relative Wall Thickness (2D) 0.31 <=0.42 LV Fractional Shortening/Ejection Fraction 2D/MM LV Fractional Shortening (2D) 30 % 25-43 LV EF (2D Teichholz) 57 % LV Diastolic Volume (4C MOD) 90 ml LV EF (4C MOD) 62 % LV Diastolic Volume (2C MOD) 98 ml LV EF (2C MOD) 64 % LV Diastolic Volume (BP MOD) 94 ml 62-150 LV Diastolic Volume Index (BP MOD) 47 ml/m2 34-74 LV Systolic Volume (BP MOD) 35 ml 21-61 LV Systolic Volume Index (BP MOD) 17 ml/m2 11-31 LV EF (BP MOD) 63 % 52-72 LV Diastolic Length (4C) 7.8 cm LV Systolic Length (4C) 6.3 cm LV Stroke Volume (4C MOD) 56 ml Atria Name Value Normal LA Dimensions LA Dimension (MM) 4.0 cm 3.0-4.0 LA Volume (4C A-L) 61 ml LA Volume (BP A-L) 63 ml RA Dimensions RA Area (4C) 19.0 cm2 <=18.0 Report Signatures
--- OUTSIDE RECORDS SUMMARY | 2025-05-11 07:37 | XMS_ITS | Clinical Summary ---
Author Organization [facility] Chaneladeel Loyd Address [facility] [place] [address] Care Team Providers Care Raw Material Planner Name Role Phone Ac Mauro DO Primary [...] - 1-dose 75+ series) 01/20/2027 Care Teams Raw Material Planner Relationship Specialty Start Date End Date Shawn Shen DO NO ADDRESS ON FILE PCP - General Family Practice 02/23/20
== END 2025-05-11 07:33 | disposition home or self-care (01) ==
LOC: ANHCARD 07:35
PROVIDERS: PCP Nurse Practitioner Adult Health; Visit Provider Nurse Practitioner Adult Health
DX: R60.0 Localized edema (principal); K74.69 Other cirrhosis of liver
CPT/HCPCS: 93306

== ENCOUNTER 2025-05-18 08:11 | Outpatient (CLI) | payer OTHER, SELFPAY ==
--- NOTE | ~2025-05-18 | CT_ITS ---
EXAMINATION: CT abdomen pelvis wo/w con DATE: 05/18/2025 08:45 INDICATION: Unspecified abdominal pain. TECHNIQUE: Computed tomography (CT) of the abdomen and pelvis was performed without and with 100 mL Omnipaque 350 intravenous contrast. Automated exposure control and iterative reconstruction technique were employed. The dose-length product was 1260.57 mGy-cm. COMPARISON: CT abdomen 01/18/2020 FINDINGS: The visualized portions of the lung bases demonstrate mild atelectasis and mild emphysema. There is a 14 mm mass at the medial pleura of the right middle lobe without change, likely benign. No pleural effusion. There is left atrial enlargement of the heart. There are calcifications aortic valve. No pericardial effusion. The liver demonstrates surface nodularity, consistent with cirrhosis. There are approximately 7 scattered arterially enhancing liver masses measuring up to 12 mm without washout. The spleen is normal in size. There are gallstones in the gallbladder, which is normal in size. The pancreas and adrenal glands are normal. There are cysts in the kidneys measuring up to 8.4 cm on the left. There is diverticulosis of the colon without evidence of diverticulitis. The appendix is normal. There are no dilated loops of bowel. There are no pathologically enlarged lymph nodes. There is no free intraperitoneal fluid. There is no significant stenosis of celiac axis, superior mesenteric artery, the renal arteries, or inferior mesenteric artery. There is severe lumbar spondylosis. IMPRESSION: 1. Cirrhosis of the liver. 2. LI-RADS LR3: Intermediate probability of malignancy. Consider abdomen MRI without and with contrast in 3-6 months. Reviewed, dictated and finalized at location E. IMPRESSION: 1. Cirrhosis of the liver. 2. LI-RADS LR3: Intermediate probability of malignancy. Consider abdomen MRI wi thout and with contrast in 3-6 months.
--- OUTSIDE RECORDS SUMMARY | 2025-05-18 08:13 | XMS_ITS | Clinical Summary ---
Author Organization [facility] Chaneladeel Loyd Address [facility] [place] [address] Care Team Providers Care Counter Sales Person Name Role Phone Ac Mauro DO Primary [...] - 1-dose 75+ series) 01/20/2027 Care Teams Counter Sales Person Relationship Specialty Start Date End Date Shawn Shen DO NO ADDRESS ON FILE PCP - General Family Practice 02/23/20
--- OUTSIDE RECORDS SUMMARY | 2025-05-18 08:36 | XMS_ITS | Clinical Summary ---
Author Organization [facility] Chaneladeel Loyd Address [facility] [place] [address] Care Team Providers Care Light Rail Operator Name Role Phone Ac Mauro DO [...] - 1-dose 75+ series) 01/20/2027 Care Teams Light Rail Operator Relationship Specialty Start Date End Date Shawn Shen DO NO ADDRESS ON FILE PCP - General Family Practice 02/23/20
[2025-05-18 09:50] LABS: Cholesterol 190 mg/dL (0-200); HDL Direct 32 mg/dL; Triglycerides 133 mg/dL (<150)
== END 2025-05-18 08:12 | disposition home or self-care (01) ==
LOC: ANHIMG 08:23
PROVIDERS: PCP Nurse Practitioner Adult Health; Visit Provider Nurse Practitioner Family
DX: K74.60 Unspecified cirrhosis of liver (principal); I10 Essential (primary) hypertension; R10.9 Unspecified abdominal pain; R14.0 Abdominal distension (gaseous)
CPT/HCPCS: 36415; 74178; 80061; Q9967